=== PATIENT | female | born 1975 | race Caucasian/White ===

== ENCOUNTER → 2018-05-29 | Outpatient (CLI) | payer MEDICARE ==
[~2018-05-29] MED LIST: ABILIFY 5MG PO; BENZ200C25 PO; BSP10T PO; CEPH-507 PO; CHOL10003 PO; CLON1TAB3 PO; CYAN5000 SL; CYCL10TA9; DESI25TA13 PO; DESV100T; DIVA250T2 PO; DULO60CA6; FLUO20CA42 PO; FOLI1TAB7 PO; MIDO10TA4 PO; MULT-856 PO; NAPR-915 PO; NF-ESOM40C PO; OMEP-10; OXYB10TA PO; OXYB15TA PO; OXYB5TAB9 PO; POTA20TA7 PO; QUET300T3 PO; SPIR1TAB; SPIR1TAB3 PO; TOPI100T2 PO; TPR100T; TRAZ150T42 PO; TRIM100T7 PO; TRZ100T PO; ZLP10T; benzotropine; buspar; vit b
--- NOTE | 2018-05-29 14:24 | Diagnostic Imaging Report ---
Indication: Routine screening. Comparison is made with prior mammogram from 05/18/2016 and 03/03/2015. 2-D and 3-D bilateral screening mammography was performed with CAD. Both breasts are heterogeneously dense, limiting the sensitivity of mammography. Postlumpectomy changes in the right breast are noted. There are 2 clusters of calcifications in the outer right breast near the surgical site. Both are superiorly located and slightly laterally located. Magnification views recommended for further evaluation. ML views are also recommended. The left breast is unremarkable. The axilla are unremarkable. IMPRESSION: BI-RADS zero Post surgical changes right breast. There is some new calcifications on the right. Magnification and ML views are recommended for further evaluation. ACR BI-RADS Category 0: Incomplete. (Needs additional imaging evaluation). Result letter will be mailed to the patient. Note: At least 10% of breast cancer is not imaged by mammography. Dictated by: Dictated on workstation # [id number]
== END ==
LOC: RAD 13:02
PROVIDERS: ATTEND Obstetrics & Gynecology
DX: Z12.31 Encounter for screening mammogram for malignant neoplasm of breast (principal); R92.1 Mammographic calcification found on diagnostic imaging of breast; Z98.890 Other specified postprocedural states
CPT/HCPCS: 77067

== ENCOUNTER → 2018-06-20 | Outpatient (CLI) | payer MEDICARE ==
[~2018-06-20] MED LIST changes: +LIDOCAINE 1% INJ 20 ML 20 ML VIAL ONE
--- NOTE | 2018-06-20 17:52 | Diagnostic Imaging Report ---
INDICATION: Right breast calcifications. Patient presents for stereotactic biopsy. Patient presents for biopsy of two separate clusters of calcifications. PROCEDURE: Patient was brought to the stereotactic suite and placed in a sitting upright position. The right breast was positioned in a lateral medial position. The cluster of microcalcifications in the upper and posterior aspect of the right breast were stereotactically targeted. The right breast was then prepped and draped in the usual sterile fashion. Small amount of 1% lidocaine was utilized for superficial and deep anesthesia. 8-gauge needle was advanced into the right breast from a lateral approach and placed per stereotactic coordinates. A total of 4 core biopsies utilizing a vacuum-assisted device was performed. Specimen radiograph demonstrates majority of calcifications located in sample #4. A localizer clip was then deployed. Stereotactic needle was removed and hemostasis was obtained. Patient tolerated the procedure well. Next, patient's right breast was repositioned lateral medially. The second cluster of microcalcifications in the upper right breast more anterior than the first cluster of microcalcifications. The anterior cluster was stereotactically targeted. The right breast was then prepped and draped in usual sterile fashion and a small amount of 1% lidocaine was utilized for local anesthesia. 8 gauge needle was advanced into the right breast from a lateral approach and placed per stereotactic coordinates. A total of 4 core biopsies were obtained with 8 gauge needle and vacuum assisted device. Specimen radiograph demonstrates numerous calcifications present but the majority located within biopsy labeled #8. The marker clip was then deployed. The needle was removed and hemostasis was obtained using manual compression. Patient tolerated the procedure well. Followup mammogram demonstrates postbiopsy changes in the right breast. There is marker clips present in the right breast anteriorly and posteriorly in the upper and outer aspect. Pathology results are pending. IMPRESSION: Successful stereotactic biopsy of two separate clusters of microcalcifications in the right breast, as described. Pathology results are currently pending. Dictated by: Dictated on workstation # [id number]
== END ==
LOC: RAD 10:08
PROVIDERS: ATTEND Obstetrics & Gynecology
DX: N60.91 Unspecified benign mammary dysplasia of right breast (principal); N60.41 Mammary duct ectasia of right breast; R92.0 Mammographic microcalcification found on diagnostic imaging of breast
CPT/HCPCS: 19081; 19082; 88305

== ENCOUNTER 2019-04-20 13:53 | Emergency (ER) | payer MEDICARE ==
[~2019-04-20] VITALS: Ht 154.9 cm; Wt 59.0 kg
[~2019-04-20 13:53] MED LIST changes: -LIDOCAINE 1% INJ 20 ML 20 ML VIAL ONE
--- OUTSIDE RECORDS SUMMARY | 2019-04-20 13:59 | XMS REPORT ---
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 Name Role Phone MILTON ANIRUDH Unavailable PROBLEMS Type Condition ICD9-CM Code QGD25-DM Code Onset Dates Condition Status SNOMED Code Problem Other and unspecified bipolar disorders 296.89 Active 05838577 Problem Nondependent cocaine abuse, unspecified 305.60 Active 138052952 Problem Major depressive disorder, recurrent episode, moderate 296.32 Active 94097652 Problem Unspecified anemia 285.9 Active 064473453 Problem Bipolar disorder, current episode mixed, severe, without psychotic features F31.63 Active 410116798 Problem Long-term use of high-risk medication Z79.899 Active 163217966 Problem LUCY (generalized anxiety disorder) F41.1 Active 10585189 Problem Bipolar affective disorder, currently depressed, mild F31.31 Active 802662422 Problem Bipolar disorder current episode depressed F31.30 Active 033875363 Problem Bipolar disorder, in partial remission, most recent episode hypomanic F31.71 Active 6452066 Problem Moderate mixed bipolar I disorder F31.62 Active 96281798 Problem ADHD (attention deficit hyperactivity disorder), inattentive type F90.0 Active 27372678 Problem Bipolar disorder in partial remission, most recent episode unspecified type F31.70 Active 281550958 Problem Bipolar affective disorder, current episode hypomanic F31.0 Active 05724199 Problem Cocaine use F14.90 Active 756705218 ALLERGIES No Information ENCOUNTERS Encounter Location Date Diagnosis [facility] [address] [facility] [id number] [address] Jul, [facility] [id number] [address] Mar, [facility] [id number] [address] Mar, Bipolar disorder, in partial remission, most recent episode hypomanic F31.71 ; ADHD (attention deficit hyperactivity disorder), inattentive type F90.0 and LUCY (generalized anxiety disorder) F41.1 [facility] [address] [address] Jan, [facility] [address] [address] Jan, Bipolar disorder, in partial remission, most recent episode hypomanic F31.71 ; LUCY (generalized anxiety disorder) F41.1 and ADHD (attention deficit hyperactivity disorder), inattentive type F90.0 [facility] [id number] [place] [address] Jan, Bipolar affective disorder, current episode hypomanic F31.0 [facility] [address] [address] Dec, [facility] [id number] [place] [address] Dec, Bipolar affective disorder, current episode hypomanic F31.0 ; LUCY (generalized anxiety disorder) F41.1 and ADHD (attention deficit hyperactivity disorder), inattentive type F90.0 [facility] [address] [address] Dec, [facility] [address] [address] Nov, Bipolar disorder in partial remission, most recent episode unspecified type F31.70 ; ADHD (attention deficit hyperactivity disorder), inattentive type F90.0 and LUCY (generalized anxiety disorder) F41.1 [facility] [id number] [place] [address] Jul, Bipolar disorder in partial remission, most recent episode unspecified type F31.70 ; LUCY (generalized anxiety disorder) F41.1 ; ADHD (attention deficit hyperactivity disorder), inattentive type F90.0 ; Long-term use of high- risk medication Z79.899 and Cocaine use F14.90 [facility] [address] [address] May, [facility] [id number] [place] [address] May, [facility] [id number] [place] [address] Apr, Bipolar affective disorder, currently depressed, mild F31.31 ; Cocaine use F14.90 ; LUCY (generalized anxiety disorder) F41.1 ; Long-term use of high- risk medication Z79.899 and ADHD (attention deficit hyperactivity disorder), inattentive type F90.0 [facility] [id number] [place] [address] Apr, [facility] [id number] [place] [address] Apr, Bipolar affective disorder, current episode hypomanic F31.0 ; LUCY (generalized anxiety disorder) F41.1 ; ADHD (attention deficit hyperactivity disorder), inattentive type F90.0 and Encounter for drug screening Z02.83 [facility] [id number] [place] [address] Apr, [facility] [address] [address] Jan, [facility] [id number] [place] [address] Dec, [facility] [id number] [place] [address] Dec, Bipolar affective disorder, current episode hypomanic F31.0 ; Long- term use of high-risk medication Z79.899 and LUCY (generalized anxiety disorder) F41.1 [facility] [address] [address] Nov, [facility] [id number] [place] [address] Oct, [address] [address] Sep, Bipolar disorder in partial remission, most recent episode unspecified type F31.70 ; ADHD (attention deficit hyperactivity disorder), inattentive type F90.0 and LUCY (generalized anxiety disorder) F41.1 [address] [place] [address] Sep, [address] [place] [id number] [place] [address] Aug, Bipolar disorder in partial remission, most recent episode unspecified type F31.70 ; Long-term use of high-risk medication Z79.899 ; ADHD (attention deficit hyperactivity disorder), inattentive type F90.0 and LUCY (generalized anxiety disorder) F41.1 [place] [address] [address] Aug, [place] [id number] [place] [address] Jul, [place] [id number] [place] [address] May, Visit for TB skin test Z11.1 [place] [address] [address] May, [place] [id number] [place] [address] Apr, Moderate mixed bipolar I disorder F31.62 and PTSD (post-traumatic stress disorder) F43.10 [place] [address] [address] Mar, [place] [id number] [place] [address] Jan, Moderate mixed bipolar I disorder F31.62 ; PTSD (post-traumatic stress disorder) F43.10 and Long-term use of high-risk medication Z79.899 [place] [address] [address] Oct, Moderate mixed bipolar I disorder F31.62 and PTSD (post-traumatic stress disorder) F43.10 [facility] [address] [address] Sep, PTSD (post-traumatic stress disorder) F43.10 and Moderate mixed bipolar I disorder F31.62 [facility] [id number] [place] [address] Sep, [facility] [id number] [place] [address] Sep, [facility] [id number] [place] [address] Aug, PTSD (post-traumatic stress disorder) F43.10 and Moderate mixed bipolar I disorder F31.62 [facility] [id number] [place] [address] Jul, [facility] [id number] [place] [address] Jul, [facility] [address] [address] Jul, PTSD (post-traumatic stress disorder) F43.10 and Moderate mixed bipolar I disorder F31.62 [facility] [address] [address] May, [facility] [address] [address] May, [facility] [address] [address] Apr, [facility] [id number] [address] Apr, [facility] [address] [address] Apr, PTSD (post-traumatic stress disorder) F43.10 and Moderate mixed bipolar I disorder F31.62 [facility] [address] [address] 27 Mar, 2016 [facility] [id number] [address] 15 Mar, 2016 [facility] [address] [address] Mar, [facility] [address] [address] February, [facility] [address] [address] February, [facility] [address] [address] Jan, Moderate mixed bipolar I disorder F31.62 and PTSD (post-traumatic stress disorder) F43.10 [facility] [address] [address] Jan, [facility] [address] [address] 24 Dec, 2015 Moderate mixed bipolar I disorder F31.62 and PTSD (post-traumatic stress disorder) F43.10 [facility] [address] [address] Dec, PTSD (post-traumatic stress disorder) F43.10 and Bipolar disorder current episode depressed F31.30 [facility] [address] [address] Sep, [facility] [address] [address] Sep, Moderate mixed bipolar I disorder F31.62 and PTSD (post-traumatic stress disorder) F43.10 [facility] [address] [address] Aug, PTSD (post-traumatic stress disorder) F43.10 and Moderate mixed bipolar I disorder F31.62 [facility] [address] [address] Jul, PTSD (post-traumatic stress disorder) F43.10 and Moderate mixed bipolar I disorder F31.62 [facility] [address] [address] May, [facility] [id number] [place] [address] May, Bipolar I disorder, most recent episode (or current) mixed, in partial or unspecified remission 296.65 and PTSD (post-traumatic stress disorder) 309.81 [facility] [id number] [place] [address] Apr, Bipolar I disorder, most recent episode (or current) mixed, moderate 296.62 and Posttraumatic stress disorder 309.81 [facility] [id number] [place] [address] Mar, [facility] [id number] [place] [address] February, [facility] [id number] [place] [address] February, [facility] [address] [address] Jan, [facility] [address] [address] Jan, [facility] [address] [address] Dec, [facility] [id number] [place] [address] Dec, [facility] [address] [address] Dec, [facility] [id number] [place] [address] Dec, [facility] [place] [facility] [address] [id number] [place] [address] Nov, [facility] [place] [facility] [address] [id number] [place] [address] Nov, [facility] [place] [facility] [address] [id number] [place] [address] Nov, [facility] [place] [facility] [address] [id number] [place] [address] Nov, [facility] [place] [facility] [address] [id number] [place] [address] Nov, [facility] [place] [facility] [address] [id number] [place] [address] Oct, [facility] [place] [facility] [address] [id number] [place] [address] Oct, [facility] [place] [facility] [address] [id number] [place] [address] Oct, [facility] [place] [facility] [address] [id number] [place] [address] Oct, [facility] [place] [facility] [address] [facility] [id number] [place] [address] Oct, [facility] [place] [facility] [address] [id number] [place] [address] Oct, [facility] [place] [facility] [address] [id number] [place] [address] Sep, [facility] [place] [facility] [address] [id number] [place] [address] Sep, [facility] [place] [facility] [address] [id number] [place] [address] Sep, [facility] [place] [facility] [address] [id number] [place] [address] Sep, [facility] [place] [facility] [address] [id number] [place] [address] Sep, [facility] [place] [facility] [address] [id number] [place] [address] Sep, [facility] [place] [facility] [address] [id number] [place] [address] Sep, [facility] [place] [facility] [address] [id number] [place] [address] Sep, [facility] [place] [facility] [address] [id number] [place] [address] Sep, [facility] [place] [facility] [address] [id number] [place] [address] Sep, [facility] [place] [facility] [address] [id number] [place] [address] Aug, [facility] [place] [facility] [address] [id number] [place] [address] Aug, [facility] [place] [facility] [address] [id number] [place] [address] Aug, [facility] [place] [facility] [address] [id number] [place] [address] Aug, [facility] [place] [facility] [address] [id number] [place] [address] Aug, [facility] [place] [facility] [address] [id number] [place] [address] Aug, [facility] [place] [facility] [address] [id number] [place] [address] Jul, [facility] [place] [facility] [address] [id number] [place] [address] Jul, [facility] [place] [facility] [address] [id number] [place] [address] Jun, [facility] [place] [facility] [address] [id number] [place] [address] Jun, [facility] [place] [facility] [address] [id number] [place] [address] Jun, [facility] [place] [facility] [address] [id number] [place] [address] Jun, [facility] [place] [facility] [address] [id number] [place] [address] Jun, [facility] [place] [facility] [address] [id number] [place] [address] Jun, [facility] [place] [facility] [address] [id number] [place] [address] May, [facility] [place] [facility] [address] [id number] [place] [address] May, [facility] [place] [facility] [address] [id number] [place] [address] May, [facility] [place] [facility] [address] [id number] [place] [address] May, [facility] [place] [facility] [address] [id number] [place] [address] February, [facility] [place] [facility] [address] [id number] [place] [address] February, [facility] [place] [facility] [address] [id number] [place] [address] Nov, [facility] [place] [facility] [address] [id number] [address] Nov, [facility] [place] [facility] [address] [id number] [place] [address] Jul, [facility] [place] [facility] [address] [id number] [place] [address] Jul, [facility] [place] [facility] [address] [id number] [place] [address] Jul, [facility] [place] [facility] [address] [id number] [place] [address] Jul, [facility] [place] [facility] [address] [id number] [place] [address] May, [facility] [place] [facility] [address] [id number] [place] [address] May, [facility] [place] [facility] [address] [id number] [place] [address] February, [facility] [place] [facility] [address] [id number] [place] [address] Dec, [facility] [place] [facility] [address] [id number] [place] [address] Dec, [facility] [place] [facility] [address] [id number] [place] [address] Dec, [facility] [place] [facility] [address] [id number] [place] [address] Nov, [facility] [place] [facility] [address] [id number] [place] [address] Oct, [facility] [place] [facility] [address] [id number] [place] [address] Sep, [facility] [place] [facility] [address] [id number] [place] [address] Sep, [facility] [place] [facility] [address] [id number] [place] [address] Aug, [facility] [place] [facility] [address] [id number] [place] [address] Aug, [facility] [place] [facility] [address] [id number] [place] [address] Jul, [facility] [place] [facility] [address] [id number] [place] [address] Jul, [facility] [place] [facility] [address] [id number] [place] [address] Jul, [facility] [place] [facility] [address] [id number] [place] [address] Apr, [facility] [place] [facility] [address] [id number] [place] [address] Apr, [facility] [place] [facility] [address] [id number] [place] [address] Mar, [facility] [place] [facility] [address] [id number] [place] [address] February, [facility] [address] [id number] [place] [address] Jan, [facility] [place] [facility] [address] [id number] [place] [address] Jan, [facility] [address] [facility] [id number] [place] [address] Dec, [facility] [address] [id number] [place] [address] Nov, [facility] [place] [facility] [address] [id number] [place] [address] Nov, [facility] [address] [facility] [id number] [place] [address] Sep, [facility] [place] [facility] [address] [id number] [place] [address] Aug, [facility] [place] [facility] [address] [id number] [address] Jul, [facility] [place] [facility] [address] [id number] [place] [address] Sep, [facility] [place] [facility] [address] [id number] [place] [address] Sep, [facility] [place] [facility] [address] [facility] [id number] [address] Aug, [facility] [place] [facility] [address] [id number], [place] [address] Aug, [facility] [address] [facility] [id number] [place] [address] Jul, IMMUNIZATIONS No Known Immunizations SOCIAL HISTORY Never Assessed REASON FOR VISIT PLAN OF CARE VITAL SIGNS MEDICATIONS Unknown Medications RESULTS No Results PROCEDURES No Known procedures INSTRUCTIONS MEDICATIONS ADMINISTERED No Known Medications MEDICAL (GENERAL) HISTORY Type Description Date Medical History Bipolar I disorder, most recent episode (or current) mixed, moderate Medical History PTSD (post-traumatic stress disorder) Surgical History Biopsy on vulva 2014 Surgical History Packing on right breast 2014 Surgical History Right breast mass removed 04/2015 Surgical History Removal of blood clot from rigt breast (hematoma) 2014 Surgical History Right Knee 04/2017 Hospitalization History Surgery
--- OUTSIDE RECORDS SUMMARY | 2019-04-20 13:59 | XMS REPORT ---
Author Author Migration, Doctor Organization [facility] Address Unknown Phone Unavailable Care Team Providers Care Sports Editor Name Role Phone Migration, Doctor Unavailable Unavailable PROBLEMS Type Condition ICD9-CM Code TYL82-AL Code Onset Dates Condition Status SNOMED Code Problem Other and unspecified bipolar disorders 296.89 Active 89631351 Problem Nondependent cocaine abuse, unspecified 305.60 Active 150744670 Problem Major depressive disorder, recurrent episode, moderate 296.32 Active 39718059 Problem Unspecified anemia 285.9 Active 753691750 Problem Bipolar disorder, current episode mixed, severe, without psychotic features F31.63 Active 402173858 Problem Long-term use of high-risk medication Z79.899 Active 773833216 Problem LUCY (generalized anxiety disorder) F41.1 Active 88723260 Problem Bipolar affective disorder, currently depressed, mild F31.31 Active 382148335 Problem Bipolar disorder current episode depressed F31.30 Active 371211911 Problem Bipolar disorder, in partial remission, most recent episode hypomanic F31.71 Active 1587048 Problem Moderate mixed bipolar I disorder F31.62 Active 55821608 Problem ADHD (attention deficit hyperactivity disorder), inattentive type F90.0 Active 19062733 Problem Bipolar disorder in partial remission, most recent episode unspecified type F31.70 Active 534220114 Problem Bipolar affective disorder, current episode hypomanic F31.0 Active 46998868 Problem Cocaine use F14.90 Active 002484718 ALLERGIES Substance Reaction Event Type Date Status Abilify 5 Mg Tablet increased glucose Non Drug Allergy Jan, Active Opioids - Morphine Analogues Unknown Non Drug Allergy Jan, Active ENCOUNTERS Encounter Location Date Diagnosis [facility] [id number] [address] Jul, [facility] [id number] [address] Mar, [facility] [id number] [address] Mar, Bipolar disorder, in partial remission, most recent episode hypomanic F31.71 ; ADHD (attention deficit hyperactivity disorder), inattentive type F90.0 and LUCY (generalized anxiety disorder) F41.1 [facility] [address] [address] Jan, [facility] [id number] [place] [address] Jan, Bipolar disorder, in partial remission, most recent episode hypomanic F31.71 ; LUCY (generalized anxiety disorder) F41.1 and ADHD (attention deficit hyperactivity disorder), inattentive type F90.0 [address] [facility] [id number] [place] [address] Jan, Bipolar affective disorder, current episode hypomanic F31.0 [facility] [address] [address] Dec, [facility] [id number] [place] [address] Dec, Bipolar affective disorder, current episode hypomanic F31.0 ; LUCY (generalized anxiety disorder) F41.1 and ADHD (attention deficit hyperactivity disorder), inattentive type F90.0 [facility] [address] [address] Dec, [facility] [address] [address] Nov, Bipolar disorder in partial remission, most recent episode unspecified type F31.70 ; ADHD (attention deficit hyperactivity disorder), inattentive type F90.0 and LUCY (generalized anxiety disorder) F41.1 [facility] [address] [place] [address] Jul, Bipolar disorder in partial remission, most recent episode unspecified type F31.70 ; LUCY (generalized anxiety disorder) F41.1 ; ADHD (attention deficit hyperactivity disorder), inattentive type F90.0 ; Long-term use of high- risk medication Z79.899 and Cocaine use F14.90 [facility] [address] [address] May, [facility] [address] [address] May, [facility] [address] [place] [address] Apr, Bipolar affective disorder, currently depressed, mild F31.31 ; Cocaine use F14.90 ; LUCY (generalized anxiety disorder) F41.1 ; Long-term use of high- risk medication Z79.899 and ADHD (attention deficit hyperactivity disorder), inattentive type F90.0 [facility] [address] [address] Apr, [facility] [id number] [place] [address] Apr, Bipolar affective disorder, current episode hypomanic F31.0 ; LUCY (generalized anxiety disorder) F41.1 ; ADHD (attention deficit hyperactivity disorder), inattentive type F90.0 and Encounter for drug screening Z02.83 [facility] [id number] [place] [address] Apr, [facility] [address] [address] Jan, [facility] [id number] [place] [address] Dec, [facility] [id number] [place] [address] Dec, Bipolar affective disorder, current episode hypomanic F31.0 ; Long- term use of high-risk medication Z79.899 and LUCY (generalized anxiety disorder) F41.1 [facility] [address] [address] Nov, [facility] [id number] [place] [address] Oct, [facility] [address] [address] Sep, Bipolar disorder in partial remission, most recent episode unspecified type F31.70 ; ADHD (attention deficit hyperactivity disorder), inattentive type F90.0 and LUCY (generalized anxiety disorder) F41.1 [address] [place] [address] Sep, [address] [id number] [place] [address] Aug, Bipolar disorder in partial remission, most recent episode unspecified type F31.70 ; Long-term use of high-risk medication Z79.899 ; ADHD (attention deficit hyperactivity disorder), inattentive type F90.0 and LUCY (generalized anxiety disorder) F41.1 [address] [place] [address] [place] [address] Aug, [place] [id number] [place] [address] Jul, [place] [id number] [place] [address] May, Visit for TB skin test Z11.1 [place] [facility] [id number] [address] May, [place] [facility] [id number] [place] [address] Apr, Moderate mixed bipolar I disorder F31.62 and PTSD (post-traumatic stress disorder) F43.10 [place] [facility] [id number] [place] [address] Mar, [address] [facility] [id number] [place] [address] Jan, Moderate mixed bipolar I disorder F31.62 ; PTSD (post-traumatic stress disorder) F43.10 and Long-term use of high-risk medication Z79.899 [facility] [address] [address] Oct, Moderate mixed bipolar I disorder F31.62 and PTSD (post-traumatic stress disorder) F43.10 [facility] [address] [address] Sep, PTSD (post-traumatic stress disorder) F43.10 and Moderate mixed bipolar I disorder F31.62 [facility] [id number] [place] [address] Sep, [facility] [id number] [place] [address] Sep, [facility] [id number] [place] [address] Aug, PTSD (post-traumatic stress disorder) F43.10 and Moderate mixed bipolar I disorder F31.62 [facility] [address] [place] [address] Jul, [facility] [id number] [place] [address] Jul, [facility] [id number] [place] [address] Jul, PTSD (post-traumatic stress disorder) F43.10 and Moderate mixed bipolar I disorder F31.62 [facility] [address] [address] May, [facility] [id number] [address] May, [facility] [id number] [address] Apr, [facility] [id number] [address] Apr, [facility] [address] [address] Apr, PTSD (post-traumatic stress disorder) F43.10 and Moderate mixed bipolar I disorder F31.62 [facility] [address] [address] 27 Mar, 2016 [facility] [address] [address] Mar, [facility] [address] [address] Mar, [facility] [address] [address] February, [facility] [id number] [place] [address] February, [facility] [address] [address] Jan, Moderate mixed bipolar I disorder F31.62 and PTSD (post-traumatic stress disorder) F43.10 [facility] [address] [address] Jan, [facility] [address] [address] 24 Dec, 2015 Moderate mixed bipolar I disorder F31.62 and PTSD (post-traumatic stress disorder) F43.10 [facility] [address] [address] Dec, PTSD (post-traumatic stress disorder) F43.10 and Bipolar disorder current episode depressed F31.30 [facility] [address] [address] Sep, [facility] [address] [address] Sep, Moderate mixed bipolar I disorder F31.62 and PTSD (post-traumatic stress disorder) F43.10 [facility] [address] [address] Aug, PTSD (post-traumatic stress disorder) F43.10 and Moderate mixed bipolar I disorder F31.62 [facility] [address] [address] Jul, PTSD (post-traumatic stress disorder) F43.10 and Moderate mixed bipolar I disorder F31.62 [facility] [address] [address] May, [facility] [id number] [place] [address] May, Bipolar I disorder, most recent episode (or current) mixed, in partial or unspecified remission 296.65 and PTSD (post-traumatic stress disorder) 309.81 [facility] [id number] [place] [address] Apr, Bipolar I disorder, most recent episode (or current) mixed, moderate 296.62 and Posttraumatic stress disorder 309.81 [facility] [id number] [place] [address] Mar, [facility] [id number] [place] [address] February, [facility] [id number] [place] [address] February, [facility] [address] [address] Jan, [facility] [id number] [place] [address] Jan, [facility] [id number] [address] Dec, [facility] [id number] [place] [address] Dec, [facility] [address] [address] Dec, [facility] [id number] [place] [address] [place] [address] Dec, [facility] [place] [facility] [address] [id number] [place] [address] Nov, [facility] [place] [facility] [address] [id number] [place] [address] Nov, [facility] [place] [facility] [address] [id number] [place] [address] Nov, [facility] [place] [facility] [address] [id number] [place] [address] Nov, [facility] [place] [facility] [address] [id number] [place] [address] Nov, [facility] [place] [facility] [address] [id number] [place] [address] Oct, [facility] [place] [facility] [address] [id number] [place] [address] Oct, [facility] [place] [facility] [address] [id number] [place] [address] Oct, [facility] [place] [facility] [address] [id number] [place] [address] Oct, [facility] [place] [facility] [address] [id number] [place] [address] Oct, [facility] [place] [facility] [address] [id number] [place] [address] Oct, [facility] [place] [facility] [address] [id number] [place] [address] Sep, [facility] [place] [facility] [address] [id number] [place] [address] Sep, [facility] [place] [facility] [address] [id number] [place] [address] Sep, [facility] [place] [facility] [address] [id number] [place] [address] Sep, [facility] [place] [facility] [address] [id number] [place] [address] Sep, [facility] [place] [facility] [address] [id number] [place] [address] Sep, [facility] [place] [facility] [address] [id number] [place] [address] Sep, [facility] [place] [facility] [address] [id number] [place] [address] Sep, [facility] [place] [facility] [address] [id number] [place] [address] Sep, [facility] [place] [facility] [address] [id number] [place] [address] Sep, [facility] [place] [facility] [address] [id number] [place] [address] Aug, [facility] [place] [facility] [address] [id number] [place] [address] Aug, [facility] [place] [facility] [address] [id number] [place] [address] Aug, [facility] [place] [facility] [address] [id number] [place] [address] Aug, [facility] [place] [facility] [address] [id number] [place] [address] Aug, [facility] [place] [facility] [address] [id number] [address] Aug, [facility] [place] [facility] [address] [id number] [place] [address] Jul, [facility] [place] [facility] [address] [id number] [place] [address] Jul, [facility] [place] [facility] [address] [id number] [address] Jun, [facility] [place] [facility] [address] [id number] [address] Jun, [facility] [place] [facility] [address] [id number] [place] [address] Jun, [facility] [place] [facility] [address] [id number] [place] [address] Jun, [facility] [place] [facility] [address] [id number] [place] [address] Jun, [facility] [place] [facility] [address] [id number] [place] [address] Jun, [facility] [place] [facility] [address] [id number] [place] [address] May, [facility] [place] [facility] [address] [id number] [place] [address] May, [facility] [place] [facility] [address] [facility] [id number] [place] [address] May, [facility] [place] [facility] [address] [id number] [place] [address] May, [facility] [place] [facility] [address] [id number] [place] [address] February, [facility] [place] [facility] [address] [facility] [id number] [place] [address] February, [facility] [place] [facility] [address] [id number] [address] Nov, [facility] [place] [facility] [address] [id number] [place] [address] Nov, [facility] [place] [facility] [address] [id number] [address] Jul, [facility] [place] [facility] [address] [id number] [place] [address] Jul, [facility] [place] [facility] [address] [id number] [address] Jul, [facility] [place] [facility] [address] [id number] [place] [address] Jul, [facility] [place] [facility] [address] [id number] [place] [address] May, [facility] [place] [facility] [address] [id number] [place] [address] May, [facility] [place] [facility] [address] [id number] [place] [address] February, [facility] [place] [facility] [address] [id number] [place] [address] Dec, [facility] [place] [facility] [address] [id number] [place] [address] Dec, [facility] [place] [facility] [address] [id number] [place] [address] Dec, [facility] [place] [facility] [address] [id number] [place] [address] Nov, [facility] [place] [facility] [address] [id number] [place] [address] Oct, [facility] [place] [facility] [address] [id number] [place] [address] Sep, [facility] [place] [facility] [address] [id number] [place] [address] Sep, [facility] [place] [facility] [address] [id number] [place] [address] Aug, [facility] [place] [facility] [address] [id number] [place] [address] Aug, [facility] [place] [facility] [address] [id number] [place] [address] Jul, [facility] [place] [facility] [address] [id number] [place] [address] Jul, [facility] [place] [facility] [address] [id number] [place] [address] Jul, [facility] [place] [facility] [address] [id number] [place] [address] Apr, [facility] [place] [facility] [address] [id number] [place] [address] Apr, [facility] [place] [facility] [address] [facility] [id number] [place] [address] Mar, [facility] [place] [facility] [address] [id number] [place] [address] February, [facility] [place] [facility] [address] [id number] [place] [address] Jan, [facility] [place] [facility] [address] [id number] [place] [address] Jan, [facility] [place] [facility] [address] [facility] [id number] [place] [address] Dec, [facility] [place] [facility] [address] [id number] [place] [address] Nov, [facility] [place] [facility] [address] [facility] [id number] [place] [address] Nov, [facility] [place] [facility] [address] [facility] [id number] [place] [address] Sep, [facility] [place] [facility] [address] [facility] [id number] [address] Aug, [facility] [place] [facility] [address] [id number] [address] Jul, [facility] [place] [facility] [address] [id number] [place] [address] Sep, [facility] [place] [facility] [address] [facility] [id number] [place] [address] Sep, [facility] [place] [facility] [address] [facility] [id number] [place] [address] Aug, [facility] [place] [facility] [address] [facility] [id number] [place] [address] Aug, [facility] [address] [facility] [id number] [place] [address] Jul, IMMUNIZATIONS No Known Immunizations SOCIAL HISTORY Never Assessed REASON FOR VISIT [facility] [place] PLAN OF CARE VITAL SIGNS MEDICATIONS Medication Instructions Dosage Frequency Start Date End Date Duration Status Seroquel XR 150 mg 1 tablet by Oral route 1 time per day qHS x 7 days, then 2 tabs po qHS thereafter Dec, Active Natazia 3 mg/2 mg-2 mg/ 2 mg-3 mg/1 mg take 1 tablet by oral route once daily Jul, Active Klonopin 1 mg 1 tablet by Oral route 3 times per day PRN anxiety (to last 30 days) Oct, Active midodrine 10 mg 1 Tablet by Oral route 3 times per day Aug, Active RESULTS No Results PROCEDURES No Known procedures [...] of blood clot from rigt breast (hematoma) 2015 Surgical History Right Knee 04/2017 Hospitalization History Surgery
--- OUTSIDE RECORDS SUMMARY | 2019-04-20 14:00 | XMS REPORT ---
Author Author Migration, Doctor Organization [facility] Address Unknown Phone Unavailable Care Team Providers Care Certified Registered Nurse Practitioner Name Role Phone Migration, Doctor Unavailable Unavailable PROBLEMS Type Condition ICD9-CM Code UUS29-NX Code Onset Dates Condition Status SNOMED Code Problem Other and unspecified bipolar disorders 296.89 Active 24475184 Problem Nondependent cocaine abuse, unspecified 305.60 Active 762976105 Problem Major depressive disorder, recurrent episode, moderate 296.32 Active 38748807 Problem Unspecified anemia 285.9 Active 494737578 Problem Bipolar disorder, current episode mixed, severe, without psychotic features F31.63 Active 062248558 Problem Long-term use of high-risk medication Z79.899 Active 167241323 Problem ADHD (attention deficit hyperactivity disorder), inattentive type F90.0 Active 66785790 Problem Bipolar affective disorder, currently depressed, mild F31.31 Active 178541300 Problem Bipolar disorder current episode depressed F31.30 Active 646463011 Problem Bipolar disorder, in partial remission, most recent episode hypomanic F31.71 Active 7282373 Problem Moderate mixed bipolar I disorder F31.62 Active 20692913 Problem LUCY (generalized anxiety disorder) F41.1 Active 89214037 Problem Bipolar disorder in partial remission, most recent episode unspecified type F31.70 Active 282301351 Problem Bipolar affective disorder, current episode hypomanic F31.0 Active 06356510 Problem Cocaine use F14.90 Active 516846178 ALLERGIES No Information ENCOUNTERS Encounter Location Date Diagnosis [facility] [address] [facility] [id number] [address] Mar, [facility] [id number] [address] Jan, [facility] [address] [facility] [id number] [address] Jan, Bipolar disorder, in partial remission, most recent episode hypomanic F31.71 ; LUCY (generalized anxiety disorder) F41.1 and ADHD (attention deficit hyperactivity disorder), inattentive type F90.0 [facility] [address] [address] Jan, Bipolar affective disorder, current episode hypomanic F31.0 [facility] [address] [address] Dec, [facility] [id number] [place] [address] Dec, Bipolar affective disorder, current episode hypomanic F31.0 ; LUCY (generalized anxiety disorder) F41.1 and ADHD (attention deficit hyperactivity disorder), inattentive type F90.0 [facility] [address] [place] [address] Dec, [facility] [address] [address] Nov, Bipolar disorder in partial remission, most recent episode unspecified type F31.70 ; ADHD (attention deficit hyperactivity disorder), inattentive type F90.0 and LUCY (generalized anxiety disorder) F41.1 [facility] [address] [address] Jul, Bipolar disorder in partial remission, most recent episode unspecified type F31.70 ; LUCY (generalized anxiety disorder) F41.1 ; ADHD (attention deficit hyperactivity disorder), inattentive type F90.0 ; Long-term use of high- risk medication Z79.899 and Cocaine use F14.90 [facility] [address] [address] May, [facility] [address] [address] May, [facility] [address] [address] Apr, Bipolar affective disorder, currently depressed, mild F31.31 ; Cocaine use F14.90 ; LUCY (generalized anxiety disorder) F41.1 ; Long-term use of high- risk medication Z79.899 and ADHD (attention deficit hyperactivity disorder), inattentive type F90.0 [facility] [id number] [address] Apr, [facility] [id number] [address] Apr, Bipolar affective disorder, current episode hypomanic F31.0 ; LUCY (generalized anxiety disorder) F41.1 ; ADHD (attention deficit hyperactivity disorder), inattentive type F90.0 and Encounter for drug screening Z02.83 [facility] [id number] [address] Apr, [place] [id number] [place] [address] Jan, [place] [facility] [id number] [place] [address] Dec, [facility] [id number] [place] [address] Dec, Bipolar affective disorder, current episode hypomanic F31.0 ; Long- term use of high-risk medication Z79.899 and LUCY (generalized anxiety disorder) F41.1 [facility] [address] [address] Nov, [facility] [address] [address] Oct, [facility] [address] [address] Sep, Bipolar disorder in partial remission, most recent episode unspecified type F31.70 ; ADHD (attention deficit hyperactivity disorder), inattentive type F90.0 and LUCY (generalized anxiety disorder) F41.1 [place] [place] [id number] [address] Sep, [facility] [id number] [place] [address] Aug, Bipolar disorder in partial remission, most recent episode unspecified type F31.70 ; Long-term use of high-risk medication Z79.899 ; ADHD (attention deficit hyperactivity disorder), inattentive type F90.0 and LUCY (generalized anxiety disorder) F41.1 [place] [address] [address] Aug, [place] [id number] [place] [address] Jul, [place] [id number] [place] [address] May, Visit for TB skin test Z11.1 [place] [id number] [place] [address] May, [place] [id number] [place] [address] Apr, Moderate mixed bipolar I disorder F31.62 and PTSD (post-traumatic stress disorder) F43.10 [place] [address] [place] [address] Mar, [place] [id number] [place] [address] Jan, Moderate mixed bipolar I disorder F31.62 ; PTSD (post-traumatic stress disorder) F43.10 and Long-term use of high-risk medication Z79.899 [place] [address] [place] [address] Oct, Moderate mixed bipolar I disorder F31.62 and PTSD (post-traumatic stress disorder) F43.10 [place] [id number] [place] [address] Sep, PTSD (post-traumatic stress disorder) F43.10 and Moderate mixed bipolar I disorder F31.62 [place] [address] [place] [address] Sep, [facility] [address] [address] Sep, [facility] [id number] [place] [address] Aug, PTSD (post-traumatic stress disorder) F43.10 and Moderate mixed bipolar I disorder F31.62 [facility] [id number] [place] [address] Jul, [facility] [id number] [place] [address] Jul, [facility] [id number] [place] [address] Jul, PTSD (post-traumatic stress disorder) F43.10 and Moderate mixed bipolar I disorder F31.62 [facility] [id number] [place] [address] May, [facility] [id number] [place] [address] May, [facility] [address] [place] [address] Apr, [facility] [address] [address] Apr, [facility] [address] [address] Apr, PTSD (post-traumatic stress disorder) F43.10 and Moderate mixed bipolar I disorder F31.62 [facility] [address] [address] Mar, [facility] [id number] [place] [address] Mar, [facility] [id number] [address] Mar, [facility] [id number] [place] [address] February, [facility] [address] [address] February, [facility] [address] [address] Jan, Moderate mixed bipolar I disorder F31.62 and PTSD (post-traumatic stress disorder) F43.10 [facility] [address] [place] [address] Jan, [facility] [address] [place] [address] Dec, Moderate mixed bipolar I disorder F31.62 and PTSD (post-traumatic stress disorder) F43.10 [place] [address] [address] Dec, PTSD (post-traumatic stress disorder) F43.10 and Bipolar disorder current episode depressed F31.30 [facility] [address] [address] Sep, [facility] [id number] [place] [address] Sep, Moderate mixed bipolar I disorder F31.62 and PTSD (post-traumatic stress disorder) F43.10 [place] [address] [address] Aug, PTSD (post-traumatic stress disorder) F43.10 and Moderate mixed bipolar I disorder F31.62 [facility] [address] [address] Jul, PTSD (post-traumatic stress disorder) F43.10 and Moderate mixed bipolar I disorder F31.62 [facility] [address] [address] May, [facility] [address] [address] May, Bipolar I disorder, most recent episode (or current) mixed, in partial or unspecified remission 296.65 and PTSD (post-traumatic stress disorder) 309.81 [facility] [id number] [place] [address] Apr, Bipolar I disorder, most recent episode (or current) mixed, moderate 296.62 and Posttraumatic stress disorder 309.81 [facility] [id number] [place] [address] Mar, [facility] [id number] [place] [address] February, [facility] [id number] [place] [address] February, [facility] [id number] [place] [address] Jan, [facility] [id number] [place] [address] Jan, [facility] [address] [address] Dec, [facility] [id number] [address] Dec, [facility] [address] [address] Dec, [facility] [address] [address] Dec, [facility] [address] [address] Nov, [facility] [id number] [address] Nov, [facility] [address] [address] Nov, [facility] [address] [address] Nov, [facility] [place] [facility] [address] [id number] [place] [address] Nov, [facility] [place] [facility] [address] [id number] [place] [address] Oct, [facility] [place] [facility] [address] [id number] [place] [address] Oct, [facility] [place] [facility] [address] [id number] [place] [address] Oct, [facility] [place] [facility] [address] [id number] [place] [address] Oct, [facility] [place] [facility] [address] [id number] [place] [address] Oct, [facility] [place] [facility] [address] [id number] [place] [address] Oct, [facility] [place] [facility] [address] [id number] [place] [address] Sep, [facility] [place] [facility] [address] [id number] [place] [address] Sep, [facility] [place] [facility] [address] [id number] [place] [address] Sep, [facility] [place] [facility] [address] [id number] [place] [address] Sep, [facility] [place] [facility] [address] [id number] [address] Sep, [facility] [place] [facility] [address] [id number] [place] [address] Sep, [facility] [place] [facility] [address] [id number] [place] [address] Sep, [facility] [place] [facility] [address] [id number] [place] [address] Sep, [facility] [place] [facility] [address] [id number] [place] [address] Sep, [facility] [place] [facility] [address] [id number] [place] [address] Sep, [facility] [place] [facility] [address] [id number] [place] [address] Aug, [facility] [place] [facility] [address] [id number] [place] [address] Aug, [facility] [place] [facility] [address] [id number] [place] [address] Aug, [facility] [place] [facility] [address] [id number] [place] [address] Aug, [facility] [place] [facility] [address] [id number] [place] [address] Aug, [facility] [place] [facility] [address] [id number] [place] [address] Aug, [facility] [place] [facility] [address] [id number] [place] [address] Jul, [facility] [place] [facility] [address] [id number] [place] [address] Jul, [facility] [place] [facility] [address] [id number] [place] [address] Jun, [facility] [place] [facility] [address] [id number] [place] [address] Jun, [facility] [place] [facility] [address] [id number] [place] [address] Jun, [facility] [place] [facility] [address] [id number] [place] [address] Jun, [facility] [place] [facility] [address] [id number] [place] [address] Jun, [facility] [place] [facility] [address] [id number] [place] [address] Jun, [facility] [place] [facility] [address] [id number] [place] [address] May, [facility] [place] [facility] [address] [id number] [place] [address] May, [facility] [place] [facility] [address] [id number] [place] [address] May, [facility] [place] [facility] [address] [id number] [place] [address] May, [facility] [place] [facility] [address] [id number] [place] [address] February, [facility] [place] [facility] [address] [id number] [place] [address] February, [facility] [place] [facility] [address] [id number] [place] [address] Nov, [facility] [place] [facility] [address] [id number] [place] [address] Nov, [facility] [place] [facility] [address] [id number] [place] [address] Jul, [facility] [place] [facility] [address] [id number] [place] [address] Jul, [facility] [place] [facility] [address] [id number] [place] [address] Jul, [facility] [place] [facility] [address] [id number] [address] Jul, [facility] [place] [facility] [address] [id number] [place] [address] May, [facility] [place] [facility] [address] [id number] [place] [address] May, [facility] [place] [facility] [address] [id number] [place] [address] February, [facility] [place] [facility] [address] [id number] [address] Dec, [facility] [address] [id number] [place] [address] Dec, [facility] [place] [facility] [address] [id number] [place] [address] Dec, [facility] [place] [facility] [address] [id number] [place] [address] Nov, [facility] [place] [facility] [address] [id number] [place] [address] Oct, [facility] [place] [facility] [address] [id number] [place] [address] Sep, [facility] [place] [facility] [address] [id number] [place] [address] Sep, [facility] [address] [facility] [id number] [place] [address] Aug, [facility] [place] [facility] [address] [facility] [id number] [place] [address] Aug, [facility] [place] [facility] [address] [facility] [id number] [place] [address] Jul, [facility] [place] [facility] [address] [facility] [id number] [place] [address] Jul, [facility] [place] [facility] [address] [facility] [id number] [place] [address] Jul, [facility] [place] [facility] [address] [facility] [id number] [address] Apr, [facility] [place] [facility] [address] [id number] [place] [address] Apr, [facility] [place] [facility] [address] [facility] [id number] [place] [address] Mar, [facility] [place] [facility] [address] [facility] [id number] [place] [address] February, [facility] [place] [facility] [address] [address] Jan, [facility] [address] [address] Jan, [facility] [address] [address] Dec, [facility] [address] [address] Nov, [facility] [address] [address] Nov, [facility] [address] [place] [address] Sep, [facility] [address] [address] Aug, [facility] [address] [address] Jul, [facility] [address] [address] Sep, [facility] [address] [address] Sep, [facility] [address] [address] Aug, [facility] [address] [address] Aug, [facility] [id number] [address] Jul, IMMUNIZATIONS No Known Immunizations SOCIAL HISTORY Never Assessed [place] [place] VITAL SIGNS MEDICATIONS Unknown [...]
--- OUTSIDE RECORDS SUMMARY | 2019-04-20 14:00 | XMS REPORT ---
Author Author Migration, Doctor Organization [facility] Address Unknown Phone Unavailable Care Team Providers Care Research Professor Of Biostatistics Name Role Phone Migration, Doctor Unavailable Unavailable PROBLEMS Type Condition ICD9-CM Code KDS24-LF Code Onset Dates Condition Status SNOMED Code Problem Other and unspecified bipolar disorders 296.89 Active 07912120 Problem Nondependent cocaine abuse, unspecified 305.60 Active 252849650 Problem Major depressive disorder, recurrent episode, moderate 296.32 Active 28622154 Problem Unspecified anemia 285.9 Active 925277501 Problem Bipolar disorder, current episode mixed, severe, without psychotic features F31.63 Active 666221166 Problem Long-term use of high-risk medication Z79.899 Active 613569105 Problem LUCY (generalized anxiety disorder) F41.1 Active 31706531 Problem Bipolar affective disorder, currently depressed, mild F31.31 Active 636595853 Problem Bipolar disorder current episode depressed F31.30 Active 869294949 Problem Bipolar disorder, in partial remission, most recent episode hypomanic F31.71 Active 4452220 Problem Moderate mixed bipolar I disorder F31.62 Active 67304309 Problem ADHD (attention deficit hyperactivity disorder), inattentive type F90.0 Active 43574252 Problem Bipolar disorder in partial remission, most recent episode unspecified type F31.70 Active 777954339 Problem Bipolar affective disorder, current episode hypomanic F31.0 Active 81864558 Problem Cocaine use F14.90 Active 336761305 ALLERGIES No Information ENCOUNTERS Encounter Location Date Diagnosis [facility] [address] [facility] [id number], [place] [address] Mar, [facility] [address], [place] [address] February, [facility] [id number] [address] Jan, [facility] [address] [id number], [place] [address] Jan, Bipolar disorder, in partial remission, most recent episode hypomanic F31.71 ; LUCY (generalized anxiety disorder) F41.1 and ADHD (attention deficit hyperactivity disorder), inattentive type F90.0 [facility] [address], [place] [address] Jan, Bipolar affective disorder, current episode hypomanic F31.0 [facility] [id number] [place] [address] Dec, [facility] [id number] [place] [address] Dec, Bipolar affective disorder, current episode hypomanic F31.0 ; LUCY (generalized anxiety disorder) F41.1 and ADHD (attention deficit hyperactivity disorder), inattentive type F90.0 [facility] [address], [place] [address] Dec, [facility] [id number] [place] [address] Nov, Bipolar disorder in partial remission, most recent episode unspecified type F31.70 ; ADHD (attention deficit hyperactivity disorder), inattentive type F90.0 and LUCY (generalized anxiety disorder) F41.1 [facility] [address], [place] [address] Jul, Bipolar disorder in partial remission, most recent episode unspecified type F31.70 ; LUCY (generalized anxiety disorder) F41.1 ; ADHD (attention deficit hyperactivity disorder), inattentive type F90.0 ; Long-term use of high- risk medication Z79.899 and Cocaine use F14.90 [facility] [address], [place] [address] May, [facility] [address], [place] [address] May, [facility] [address], [place] [address] Apr, Bipolar affective disorder, currently depressed, mild F31.31 ; Cocaine use F14.90 ; LUCY (generalized anxiety disorder) F41.1 ; Long-term use of high- risk medication Z79.899 and ADHD (attention deficit hyperactivity disorder), inattentive type F90.0 [facility] [address], [place] [address] Apr, [facility] [id number] [place] [address] Apr, Bipolar affective disorder, current episode hypomanic F31.0 ; LUCY (generalized anxiety disorder) F41.1 ; ADHD (attention deficit hyperactivity disorder), inattentive type F90.0 and Encounter for drug screening Z02.83 [place] [id number] [place] [address] Apr, [place] [id number] [place] [address] Jan, [facility] [id number] [place] [address] Dec, [place] [id number] [place] [address] Dec, Bipolar affective disorder, current episode hypomanic F31.0 ; Long- term use of high-risk medication Z79.899 and LUCY (generalized anxiety disorder) F41.1 [facility] [id number] [place] [address] Nov, [facility] [id number] [place] [address] Oct, [facility] [id number] [place] [address] Sep, Bipolar disorder in partial remission, most recent episode unspecified type F31.70 ; ADHD (attention deficit hyperactivity disorder), inattentive type F90.0 and LUCY (generalized anxiety disorder) F41.1 [facility] [id number] [place] [address] Sep, [place] [address], [place] [address] Aug, Bipolar disorder in partial remission, most recent episode unspecified type F31.70 ; Long-term use of high-risk medication Z79.899 ; ADHD (attention deficit hyperactivity disorder), inattentive type F90.0 and LUCY (generalized anxiety disorder) F41.1 [place] [id number] [place] [address] Aug, [place] [id number] [place] [address] Jul, [place] [id number] [place] [address] May, Visit for TB skin test Z11.1 [place] [id number] [place] [address] May, [place] [id number] [place] [address] Apr, Moderate mixed bipolar I disorder F31.62 and PTSD (post-traumatic stress disorder) F43.10 [place] [address], [place] [address] Mar, [place] [address], [place] [address] Jan, Moderate mixed bipolar I disorder F31.62 ; PTSD (post-traumatic stress disorder) F43.10 and Long-term use of high-risk medication Z79.899 [place] [address], [place] [address] Oct, Moderate mixed bipolar I disorder F31.62 and PTSD (post-traumatic stress disorder) F43.10 [place] [address], [place] [address] Sep, PTSD (post-traumatic stress disorder) F43.10 and Moderate mixed bipolar I disorder F31.62 [facility] [address] [facility] [id number], [place] [address] Sep, [facility] [id number] [place] [address] Sep, [facility] [id number], [place] [address] Aug, PTSD (post-traumatic stress disorder) F43.10 and Moderate mixed bipolar I disorder F31.62 [facility] [id number] [place] [address] Jul, [facility] [id number] [place] [address], [place] [address] Jul, [facility] [id number], [place] [address] Jul, PTSD (post-traumatic stress disorder) F43.10 and Moderate mixed bipolar I disorder F31.62 [facility] [id number], [place] [address] May, [facility] [id number], [place] [address] May, [facility] [id number], [place] [address] Apr, [facility] [address], [place] [address] Apr, [facility] [id number], [place] [address] Apr, PTSD (post-traumatic stress disorder) F43.10 and Moderate mixed bipolar I disorder F31.62 [facility] [address] [facility] [id number], [place] [address] Mar, [facility] [id number], [place] [address] Mar, [facility] [id number], [place] [address] Mar, [facility] [address], [place] [address] February, [facility] [id number] [place] [address] February, [facility] [id number], [place] [address] Jan, Moderate mixed bipolar I disorder F31.62 and PTSD (post-traumatic stress disorder) F43.10 [facility] [address], [place] [address] Jan, [facility] [id number] [place] [address] Dec, Moderate mixed bipolar I disorder F31.62 and PTSD (post-traumatic stress disorder) F43.10 [place] [address] [place] [address] Dec, PTSD (post-traumatic stress disorder) F43.10 and Bipolar disorder current episode depressed F31.30 [place] [address], [place] [address] Sep, [place] [address], [place] [address] Sep, Moderate mixed bipolar I disorder F31.62 and PTSD (post-traumatic stress disorder) F43.10 [facility] [address], [place] [address] Aug, PTSD (post-traumatic stress disorder) F43.10 and Moderate mixed bipolar I disorder F31.62 [facility] [id number] [place] [address] 08 Jul, 2015 PTSD (post-traumatic stress disorder) F43.10 and Moderate mixed bipolar I disorder F31.62 [place] [address], [place] [address] May, [place] [address], [place] [address] May, Bipolar I disorder, most recent episode (or current) mixed, in partial or unspecified remission 296.65 and PTSD (post-traumatic stress disorder) 309.81 [facility] [address], [place] [address] Apr, Bipolar I disorder, most recent episode (or current) mixed, moderate 296.62 and Posttraumatic stress disorder 309.81 [facility] [id number] [place] [address] Mar, [facility] [id number] [place] [address] February, [facility] [id number] [address] February, [facility] [id number] [address] Jan, [facility] [address], [place] [address] Jan, [facility] [id number] [place] [address] Dec, [facility] [address], [place] [address] Dec, [facility] [address], [place] [address] Dec, [facility] [address], [place] [address] Dec, [facility] [id number], [place] [address] Nov, [facility] [address], [place] [address] Nov, [facility] [id number], [place] [address] Nov, [facility] [place] [facility] [address] [id number] [place] [address] Nov, [facility] [place] [facility] [address] [id number] [place] [address] Nov, [facility] [place] [facility] [address] [id number] [place] [address] Oct, [facility] [place] [facility] [address] [id number] [place] [address] Oct, [facility] [place] [facility] [address] [id number] [place] [address] Oct, [facility] [place] [facility] [address] [id number] [place] [address] Oct, [facility] [place] [facility] [address] [id number] [place] [address] Oct, [facility] [place] [facility] [address] [id number] [place] [address] Oct, [facility] [place] [facility] [address] [id number] [place] [address] Sep, [facility] [place] [facility] [address] [id number] [place] [address] Sep, [facility] [place] [facility] [address] [id number] [place] [address] Sep, [facility] [place] [facility] [address] [id number], [place] [address] Sep, [facility] [place] [facility] [address] [id number] [place] [address] Sep, [facility] [place] [facility] [address] [id number] [place] [address] Sep, [facility] [place] [facility] [address] [id number] [place] [address] Sep, [facility] [place] [facility] [address] [id number] [place] [address] Sep, [facility] [place] [facility] [address] [id number] [place] [address] Sep, [facility] [place] [facility] [address] [id number] [place] [address] Sep, [facility] [place] [facility] [address] [id number] [place] [address] Aug, [facility] [place] [facility] [address] [id number] [place] [address] Aug, [facility] [place] [facility] [address] [id number] [place] [address] Aug, [facility] [place] [facility] [address] [id number] [place] [address] Aug, [facility] [place] [facility] [address] [id number] [place] [address] Aug, [facility] [place] [facility] [address] [id number] [place] [address] Aug, [facility] [place] [facility] [address] [id number] [place] [address] Jul, [facility] [place] [facility] [address] [facility] [id number] [place] [address] Jul, [facility] [place] [facility] [address] [id number] [place] [address] Jun, [facility] [place] [facility] [address] [id number] [place] [address] Jun, [facility] [place] [facility] [address] [id number] [place] [address] Jun, [facility] [place] [facility] [address] [id number] [place] [address] Jun, [facility] [place] [facility] [address] [id number] [place] [address] Jun, [facility] [place] [facility] [address] [id number] [place] [address] Jun, [facility] [place] [facility] [address] [id number] [place] [address] May, [facility] [place] [facility] [address] [id number] [place] [address] May, [facility] [place] [facility] [address] [id number] [place] [address] May, [facility] [place] [facility] [address] [id number] [place] [address] May, [facility] [place] [facility] [address] [id number] [place] [address] February, [facility] [place] [facility] [address] [id number] [place] [address] February, [facility] [place] [facility] [address] [id number] [place] [address] Nov, [facility] [place] [facility] [address] [id number] [place] [address] Nov, [facility] [place] [facility] [address] [id number] [place] [address] Jul, [facility] [place] [facility] [address] [id number] [place] [address] Jul, [facility] [place] [facility] [address] [id number], [place] [address] Jul, [facility] [place] [facility] [address] [id number] [place] [address] Jul, [facility] [place] [facility] [address] [id number] [place] [address] May, [facility] [place] [facility] [address] [id number] [place] [address] May, [facility] [place] [facility] [address] [id number], [place] [address] February, [facility] [address] [id number] [place] [address] Dec, [facility] [place] [facility] [address] [id number] [place] [address] Dec, [facility] [place] [facility] [address] [facility] [id number] [place] [address] Dec, [facility] [place] [facility] [address] [id number] [place] [address] Nov, [facility] [place] [facility] [address] [id number] [place] [address] Oct, [facility] [place] [facility] [address] [facility] [id number] [place] [address] Sep, [facility] [address] [facility] [id number] [place] [address] Sep, [facility] [place] [facility] [address] [facility] [id number] [place] [address] Aug, [facility] [place] [facility] [address] [facility] [id number] [place] [address] Aug, [facility] [place] [facility] [address] [facility] [id number] [place] [address] Jul, [facility] [place] [facility] [address] [facility] [id number] [place] [address] Jul, [facility] [place] [facility] [address] [facility] [id number], [place] [address] Jul, [facility] [place] [facility] [address] [facility] [id number] [place] [address] Apr, [facility] [place] [facility] [address] [facility] [id number] [place] [address] Apr, [facility] [place] [facility] [address] [facility] [id number] [place] [address] Mar, [facility] [place] [facility] [address], [place] [address] February, [facility] [address], [place] [address] Jan, [facility] [address], [place] [address] Jan, [facility] [id number], [place] [address] Dec, [facility] [id number], [place] [address] Nov, [facility] [id number] [place] [address] Nov, [facility] [address], [place] [address] Sep, [facility] [address], [place] [address] Aug, [facility] [address], [place] [address] Jul, [facility] [address], [place] [address] Sep, [facility] [address], [place] [address] Sep, [facility] [address], [place] [address] Aug, [facility] [id number], [place] [address] Aug, [facility] [address], [place] [address] Jul, IMMUNIZATIONS No Known Immunizations SOCIAL HISTORY Never Assessed REASON FOR VISIT EMR-[facility] PLAN OF CARE VITAL SIGNS MEDICATIONS Unknown [...]
--- OUTSIDE RECORDS SUMMARY | 2019-04-20 14:00 | XMS REPORT ---
Author Author Migration, Doctor Organization [facility] Address Unknown Phone Unavailable Care Team Providers Care Plate Corrector Name Role Phone Migration, Doctor Unavailable Unavailable PROBLEMS Type Condition ICD9-CM Code GVU66-DU Code Onset Dates Condition Status SNOMED Code Problem Other and unspecified bipolar disorders 296.89 Active 88175579 Problem Nondependent cocaine abuse, unspecified 305.60 Active 305891514 Problem Major depressive disorder, recurrent episode, moderate 296.32 Active 25581597 Problem Unspecified anemia 285.9 Active 663805510 Problem Bipolar disorder, current episode mixed, severe, without psychotic features F31.63 Active 102933453 Problem Long-term use of high-risk medication Z79.899 Active 655334566 Problem LUCY (generalized anxiety disorder) F41.1 Active 51558157 Problem Bipolar affective disorder, currently depressed, mild F31.31 Active 288038277 Problem Bipolar disorder current episode depressed F31.30 Active 603478410 Problem Bipolar disorder, in partial remission, most recent episode hypomanic F31.71 Active 0315376 Problem Moderate mixed bipolar I disorder F31.62 Active 48481201 Problem ADHD (attention deficit hyperactivity disorder), inattentive type F90.0 Active 17240947 Problem Bipolar disorder in partial remission, most recent episode unspecified type F31.70 Active 779180392 Problem Bipolar affective disorder, current episode hypomanic F31.0 Active 73796800 Problem Cocaine use F14.90 Active 602431138 ALLERGIES No Information ENCOUNTERS Encounter Location Date Diagnosis [facility] [address] [facility] [id number] [address] Mar, [facility] [address], [place] [address] February, [facility] [id number] [address] Jan, [facility] [id number] [address] Jan, Bipolar disorder, in partial remission, most recent episode hypomanic F31.71 ; LUCY (generalized anxiety disorder) F41.1 and ADHD (attention deficit hyperactivity disorder), inattentive type F90.0 [facility] [address], [place] [address] Jan, Bipolar affective disorder, current episode hypomanic F31.0 [facility] [id number] [place] [address] Dec, [facility] [id number] [place] [address] Dec, Bipolar affective disorder, current episode hypomanic F31.0 ; LUCY (generalized anxiety disorder) F41.1 and ADHD (attention deficit hyperactivity disorder), inattentive type F90.0 [facility] [address], [place] [address] Dec, [facility] [id number] [place] [address] Nov, Bipolar disorder in partial remission, most recent episode unspecified type F31.70 ; ADHD (attention deficit hyperactivity disorder), inattentive type F90.0 and LUCY (generalized anxiety disorder) F41.1 [facility] [address], [place] [address] Jul, Bipolar disorder in partial remission, most recent episode unspecified type F31.70 ; LUCY (generalized anxiety disorder) F41.1 ; ADHD (attention deficit hyperactivity disorder), inattentive type F90.0 ; Long-term use of high- risk medication Z79.899 and Cocaine use F14.90 [facility] [address], [place] [address] May, [facility] [address], [place] [address] May, [facility] [address], [place] [address] Apr, Bipolar affective disorder, currently depressed, mild F31.31 ; Cocaine use F14.90 ; LUCY (generalized anxiety disorder) F41.1 ; Long-term use of high- risk medication Z79.899 and ADHD (attention deficit hyperactivity disorder), inattentive type F90.0 [facility] [address], [place] [address] Apr, [facility] [id number] [place] [address] Apr, Bipolar affective disorder, current episode hypomanic F31.0 ; LUCY (generalized anxiety disorder) F41.1 ; ADHD (attention deficit hyperactivity disorder), inattentive type F90.0 and Encounter for drug screening Z02.83 [facility] [facility] [id number] [place] [address] Apr, [place] [id number] [place] [address] Jan, [facility] [id number] [place] [address] Dec, [facility] [id number] [place] [address] Dec, Bipolar affective disorder, current episode hypomanic F31.0 ; Long- term use of high-risk medication Z79.899 and LUCY (generalized anxiety disorder) F41.1 [facility] [id number] [place] [address] Nov, [facility] [id number] [place] [address] Oct, [facility] [id number] [place] [address] Sep, Bipolar disorder in partial remission, most recent episode unspecified type F31.70 ; ADHD (attention deficit hyperactivity disorder), inattentive type F90.0 and LUCY (generalized anxiety disorder) F41.1 [facility] [id number] [place] [address] Sep, [place] [address], [place] [address] Aug, Bipolar disorder in partial remission, most recent episode unspecified type F31.70 ; Long-term use of high-risk medication Z79.899 ; ADHD (attention deficit hyperactivity disorder), inattentive type F90.0 and LUCY (generalized anxiety disorder) F41.1 [facility] [facility] [id number] [place] [address] Aug, [place] [id number] [place] [address] Jul, [facility] [facility] [id number] [place] [address] May, Visit for TB skin test Z11.1 [facility] [facility] [id number] [place] [address] May, [facility] [facility] [id number] [place] [address] Apr, Moderate mixed bipolar I disorder F31.62 and PTSD (post-traumatic stress disorder) F43.10 [place] [address], [place] [address] Mar, [place] [address], [place] [address] Jan, Moderate mixed bipolar I disorder F31.62 ; PTSD (post-traumatic stress disorder) F43.10 and Long-term use of high-risk medication Z79.899 [place] [address], [place] [address] Oct, Moderate mixed bipolar I disorder F31.62 and PTSD (post-traumatic stress disorder) F43.10 [place] [address], [place] [address] Sep, PTSD (post-traumatic stress disorder) F43.10 and Moderate mixed bipolar I disorder F31.62 [facility] [address] [facility] [id number], [place] [address] Sep, [facility] [id number] [place] [address] Sep, [facility] [id number], [place] [address] Aug, PTSD (post-traumatic stress disorder) F43.10 and Moderate mixed bipolar I disorder F31.62 [facility] [id number] [place] [address] Jul, [facility] [id number] [place] [address], [place] [address] Jul, [facility] [id number] [address] Jul, PTSD (post-traumatic stress disorder) F43.10 and Moderate mixed bipolar I disorder F31.62 [facility] [id number] [address] May, [facility] [id number], [place] [address] May, [facility] [id number], [place] [address] Apr, [facility] [address], [place] [address] Apr, [facility] [id number], [place] [address] Apr, PTSD (post-traumatic stress disorder) F43.10 and Moderate mixed bipolar I disorder F31.62 [facility] [address] [facility] [id number], [place] [address] Mar, [facility] [id number], [place] [address] Mar, [facility] [id number], [place] [address] Mar, [facility] [address], [place] [address] February, [facility] [id number] [place] [address] February, [facility] [address], [place] [address] Jan, Moderate mixed bipolar I disorder F31.62 and PTSD (post-traumatic stress disorder) F43.10 [facility] [address], [place] [address] Jan, [facility] [id number] [place] [address] Dec, Moderate mixed bipolar I disorder F31.62 and PTSD (post-traumatic stress disorder) F43.10 [place] [address] [place] [address] Dec, PTSD (post-traumatic stress disorder) F43.10 and Bipolar disorder current episode depressed F31.30 [place] [address], [place] [address] Sep, [place] [address], [place] [address] Sep, Moderate mixed bipolar I disorder F31.62 and PTSD (post-traumatic stress disorder) F43.10 [facility] [address], [place] [address] Aug, PTSD (post-traumatic stress disorder) F43.10 and Moderate mixed bipolar I disorder F31.62 [facility] [address] [place] [address] 08 Jul, 2015 PTSD (post-traumatic stress disorder) F43.10 and Moderate mixed bipolar I disorder F31.62 [place] [address], [place] [address] May, [place] [address], [place] [address] May, Bipolar I disorder, most recent episode (or current) mixed, in partial or unspecified remission 296.65 and PTSD (post-traumatic stress disorder) 309.81 [facility] [address], [place] [address] Apr, Bipolar I disorder, most recent episode (or current) mixed, moderate 296.62 and Posttraumatic stress disorder 309.81 [facility] [id number] [place] [address] Mar, [facility] [id number] [place] [address] February, [facility] [id number] [address] February, [facility] [address] [id number] [address] Jan, [facility] [address], [place] [address] Jan, [facility] [address] [place] [address] Dec, [facility] [address], [place] [address] Dec, [facility] [address], [place] [address] Dec, [facility] [address], [place] [address] Dec, [facility] [id number], [place] [address] Nov, [facility] [address], [place] [address] Nov, [facility] [address], [place] [address] Nov, [facility] [place] [facility] [address] [id number] [place] [address] Nov, [facility] [place] [facility] [address] [id number] [place] [address] Nov, [facility] [place] [facility] [address] [id number] [place] [address] Oct, [facility] [place] [facility] [address] [id number] [place] [address] Oct, [facility] [place] [facility] [address] [id number] [place] [address] Oct, [facility] [place] [facility] [address] [id number] [place] [address] Oct, [facility] [place] [facility] [address] [id number] [place] [address] Oct, [facility] [place] [facility] [address] [id number] [place] [address] Oct, [facility] [place] [facility] [address] [id number] [place] [address] Sep, [facility] [place] [facility] [address] [id number] [place] [address] Sep, [facility] [place] [facility] [address] [id number] [place] [address] Sep, [facility] [place] [facility] [address] [id number] [address] Sep, [facility] [place] [facility] [address] [id number] [place] [address] Sep, [facility] [place] [facility] [address] [id number] [place] [address] Sep, [facility] [place] [facility] [address] [id number] [place] [address] Sep, [facility] [place] [facility] [address] [id number] [place] [address] Sep, [facility] [place] [facility] [address] [id number] [place] [address] Sep, [facility] [place] [facility] [address] [id number] [place] [address] Sep, [facility] [place] [facility] [address] [id number] [place] [address] Aug, [facility] [place] [facility] [address] [id number] [place] [address] Aug, [facility] [place] [facility] [address] [id number] [place] [address] Aug, [facility] [place] [facility] [address] [id number] [place] [address] Aug, [facility] [place] [facility] [address] [id number] [place] [address] Aug, [facility] [place] [facility] [address] [id number] [place] [address] Aug, [facility] [place] [facility] [address] [id number] [place] [address] Jul, [facility] [place] [facility] [address] [facility] [id number] [place] [address] Jul, [facility] [place] [facility] [address] [id number] [place] [address] Jun, [facility] [place] [facility] [address] [id number] [place] [address] Jun, [facility] [place] [facility] [address] [id number] [place] [address] Jun, [facility] [place] [facility] [address] [id number] [place] [address] Jun, [facility] [place] [facility] [address] [id number] [place] [address] Jun, [facility] [place] [facility] [address] [id number] [place] [address] Jun, [facility] [place] [facility] [address] [id number] [place] [address] May, [facility] [place] [facility] [address] [id number] [place] [address] May, [facility] [place] [facility] [address] [id number] [place] [address] May, [facility] [place] [facility] [address] [id number] [place] [address] May, [facility] [place] [facility] [address] [id number] [place] [address] February, [facility] [place] [facility] [address] [id number] [place] [address] February, [facility] [place] [facility] [address] [id number] [place] [address] Nov, [facility] [place] [facility] [address] [id number] [place] [address] Nov, [facility] [place] [facility] [address] [id number] [place] [address] Jul, [facility] [place] [facility] [address] [id number] [place] [address] Jul, [facility] [place] [facility] [address] [id number], [place] [address] Jul, [facility] [place] [facility] [address] [id number] [place] [address] Jul, [facility] [place] [facility] [address] [id number] [place] [address] May, [facility] [place] [facility] [address] [id number] [place] [address] May, [facility] [place] [facility] [address] [id number], [place] [address] February, [facility] [address] [id number] [place] [address] Dec, [facility] [place] [facility] [address] [id number] [place] [address] Dec, [facility] [place] [facility] [address] [facility] [id number] [place] [address] Dec, [facility] [place] [facility] [address] [id number] [place] [address] Nov, [facility] [place] [facility] [address] [id number] [place] [address] Oct, [facility] [place] [facility] [address] [facility] [id number] [place] [address] Sep, [facility] [address] [facility] [id number] [place] [address] Sep, [facility] [place] [facility] [address] [facility] [id number] [place] [address] Aug, [facility] [place] [facility] [address] [facility] [id number] [place] [address] Aug, [facility] [place] [facility] [address] [facility] [id number] [place] [address] Jul, [facility] [place] [facility] [address] [facility] [id number] [place] [address] Jul, [facility] [place] [facility] [address] [facility] [id number], [place] [address] Jul, [facility] [place] [facility] [address] [facility] [id number] [place] [address] Apr, [facility] [place] [facility] [address] [facility] [id number] [place] [address] Apr, [facility] [place] [facility] [address] [facility] [id number] [place] [address] Mar, [facility] [place] [facility] [address], [place] [address] February, [facility] [address], [place] [address] Jan, [facility] [address], [place] [address] Jan, [facility] [address], [place] [address] Dec, [facility] [address], [place] [address] Nov, [facility] [id number] [place] [address] Nov, [facility] [address], [place] [address] Sep, [facility] [address], [place] [address] Aug, [facility] [address], [place] [address] Jul, [facility] [address], [place] [address] Sep, [facility] [address], [place] [address] Sep, [facility] [address], [place] [address] Aug, [facility] [id number], [place] [address] Aug, [facility] [address], [place] [address] Jul, IMMUNIZATIONS No Known Immunizations SOCIAL HISTORY Never Assessed REASON FOR VISIT EMR-[facility] [place]AN OF CARE VITAL SIGNS MEDICATIONS Unknown [...]
--- OUTSIDE RECORDS SUMMARY | 2019-04-20 14:01 | XMS REPORT ---
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 Name Role Phone MILTON ANIRUDH Unavailable PROBLEMS Type Condition ICD9-CM Code ZLB22-UG Code Onset Dates Condition Status SNOMED Code Problem Bipolar disorder current episode depressed F31.30 Active 565726851 Problem Long-term use of high-risk medication Z79.899 Active 132766438 Problem Bipolar disorder, current episode mixed, severe, without psychotic features F31.63 Active 137785689 Problem Bipolar affective disorder, currently depressed, mild F31.31 Active 857947607 Problem Cocaine use F14.90 Active 758183198 Problem ADHD (attention deficit hyperactivity disorder), inattentive 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62 Active 38114434 ALLERGIES Substance Reaction Event Type Date Status Macrodantin hives Drug Allergy Jul, Active Makena Carbonate itching Drug Allergy Jul, Active Fentanyl blister Drug Allergy Jul, Active Abilify 5 Mg Tablet increased glucose Non Drug Allergy Jul, Active Opioids - Morphine Analogues Unknown Non Drug Allergy Jul, Active ENCOUNTERS Encounter Location Date Diagnosis [facility] [address] [facility] [id number], [place] [address] Oct, [facility] [address] [facility] [id number] [place] [address] Jul, Bipolar disorder in partial remission, most recent episode unspecified type F31.70 ; LUCY (generalized anxiety disorder) F41.1 ; ADHD (attention deficit hyperactivity disorder), inattentive type F90.0 ; Long-term use of high- risk medication Z79.899 and Cocaine use F14.90 [facility] [id number] [place] [address] May, [facility] [address] [id number] [place] [address] May, [facility] [place] [id number] [place] [address] Apr, Bipolar affective disorder, currently depressed, mild F31.31 ; Cocaine use F14.90 ; LUCY (generalized anxiety disorder) F41.1 ; Long-term use of high- risk medication Z79.899 and ADHD (attention deficit hyperactivity disorder), inattentive type F90.0 [place] [id number] [place] [address] Apr, [facility] [place] [id number] [place] [address] Apr, Bipolar affective disorder, current episode hypomanic F31.0 ; LUCY (generalized anxiety disorder) F41.1 ; ADHD (attention deficit hyperactivity disorder), inattentive type F90.0 and Encounter for drug screening Z02.83 [facility] [place] [id number] [place] [address] Apr, [place] [place] [id number] [place] [address] Jan, [facility] [id number] [place] [address] Dec, [facility] [id number] [place] [address] Dec, Bipolar affective disorder, current episode hypomanic F31.0 ; Long- term use of high-risk medication Z79.899 and LUCY (generalized anxiety disorder) F41.1 [facility] [id number] [place] [address] Nov, [facility] [id number] [place] [address] Oct, [facility] [id number] [place] [address] Sep, Bipolar disorder in partial remission, most recent episode unspecified type F31.70 ; ADHD (attention deficit hyperactivity disorder), inattentive type F90.0 and LUCY (generalized anxiety disorder) F41.1 [place] [id number] [place] [address] Sep, [facility] [id number] [place] [address] Aug, Bipolar disorder in partial remission, most recent episode unspecified type F31.70 ; Long-term use of high-risk medication Z79.899 ; ADHD (attention deficit hyperactivity disorder), inattentive type F90.0 and LUCY (generalized anxiety disorder) F41.1 [place] [id number] [place] [address] Aug, [place] [id number] [place] [address] Jul, [place] [id number] [place] [address] May, Visit for TB skin test Z11.1 [place] [id number] [place] [address] May, [place] [id number] [place] [address] Apr, Moderate mixed bipolar I disorder F31.62 and PTSD (post-traumatic stress disorder) F43.10 [place] [id number] [place] [address] Mar, [facility] [address], [place] [address] Jan, Moderate mixed bipolar I disorder F31.62 ; PTSD (post-traumatic stress disorder) F43.10 and Long-term use of high-risk medication Z79.899 [facility] [address], [place] [address] Oct, Moderate mixed bipolar I disorder F31.62 and PTSD (post-traumatic stress disorder) F43.10 [facility] [id number] [place] [address] Sep, PTSD (post-traumatic stress disorder) F43.10 and Moderate mixed bipolar I disorder F31.62 [facility] [id number] [place] [address] Sep, [facility] [id number] [place] [address] Sep, [facility] [id number] [place] [address] Aug, PTSD (post-traumatic stress disorder) F43.10 and Moderate mixed bipolar I disorder F31.62 [facility] [address], [place] [address] Jul, [facility] [id number] [place] [address] Jul, [facility] [id number] [place] [address] Jul, PTSD (post-traumatic stress disorder) F43.10 and Moderate mixed bipolar I disorder F31.62 [facility] [id number] [place] [address] May, [facility] [address] [id number], [place] [address] May, [facility] [id number] [place] [address] Apr, [facility] [address], [place] [address] Apr, [facility] [id number] [place] [address] Apr, PTSD (post-traumatic stress disorder) F43.10 and Moderate mixed bipolar I disorder F31.62 [facility] [id number] [place] [address] Mar, [facility] [id number] [place] [address] Mar, [facility] [id number] [place] [address] Mar, [facility] [id number] [place] [address] February, [facility] [id number] [place] [address] February, [facility] [id number] [place] [address] Jan, Moderate mixed bipolar I disorder F31.62 and PTSD (post-traumatic stress disorder) F43.10 [facility] [address], [place] [address] Jan, [facility] [id number] [place] [address] 24 Dec, 2015 Moderate mixed bipolar I disorder F31.62 and PTSD (post-traumatic stress disorder) F43.10 [facility] [id number] [place] [address] Dec, PTSD (post-traumatic stress disorder) F43.10 and Bipolar disorder current episode depressed F31.30 [facility] [address], [place] [address] Sep, [facility] [id number] [place] [address] Sep, Moderate mixed bipolar I disorder F31.62 and PTSD (post-traumatic stress disorder) F43.10 [facility] [address], [place] [address] Aug, PTSD (post-traumatic stress disorder) F43.10 and Moderate mixed bipolar I disorder F31.62 [facility] [address] [place] [address] Jul, PTSD (post-traumatic stress disorder) F43.10 and Moderate mixed bipolar I disorder F31.62 [facility] [id number] [place] [address] May, [facility] [id number] [place] [address] May, Bipolar I disorder, most recent episode (or current) mixed, in partial or unspecified remission 296.65 and PTSD (post-traumatic stress disorder) 309.81 [facility] [address], [place] [address] Apr, Bipolar I disorder, most recent episode (or current) mixed, moderate 296.62 and Posttraumatic stress disorder 309.81 [facility] [address], [place] [address] Mar, [facility] [address], [place] [address] February, [facility] [id number] [place] [address] February, [facility] [address], [place] [address] Jan, [facility] [id number] [place] [address] Jan, [facility] [address], [place] [address] Dec, [facility] [id number] [place] [address] Dec, [facility] [place] [facility] [address] [id number] [place] [address] Dec, [facility] [place] [facility] [address] [id number] [place] [address] Dec, [facility] [place] [facility] [address] [id number] [place] [address] Nov, [facility] [place] [facility] [address] [id number] [place] [address] Nov, [facility] [place] [facility] [address] [id number] [place] [address] Nov, [facility] [place] [facility] [address] [id number] [place] [address] Nov, [facility] [place] [facility] [address] [id number] [place] [address] Nov, [facility] [place] [facility] [address] [id number] [place] [address] Oct, [facility] [place] [facility] [address] [id number] [place] [address] Oct, [facility] [place] [facility] [address] [facility] [id number] [place] [address] Oct, [facility] [place] [facility] [address] [id number] [place] [address] Oct, [facility] [place] [facility] [address] [id number] [place] [address] Oct, [facility] [place] [facility] [address] [id number] [place] [address] Oct, [facility] [place] [facility] [address] [id number] [place] [address] Sep, [facility] [place] [facility] [address] [id number] [place] [address] Sep, [facility] [place] [facility] [address] [id number] [place] [address] Sep, [facility] [place] [facility] [address] [id number] [place] [address] Sep, [facility] [place] [facility] [address] [id number] [place] [address] Sep, [facility] [place] [facility] [address] [id number] [place] [address] Sep, [facility] [place] [facility] [address] [id number] [place] [address] Sep, [facility] [place] [facility] [address] [id number] [place] [address] Sep, [facility] [place] [facility] [address] [id number] [place] [address] Sep, [facility] [place] [facility] [address] [id number] [place] [address] Sep, [facility] [place] [facility] [address] [id number] [place] [address] Aug, [facility] [place] [facility] [address] [id number] [place] [address] Aug, [facility] [place] [facility] [address] [id number], [place] [address] Aug, [facility] [place] [facility] [address] [id number], [place] [address] Aug, [facility] [place] [facility] [address] [id number] [place] [address] Aug, [facility] [place] [facility] [address] [id number] [place] [address] Aug, [facility] [place] [facility] [address] [id number] [place] [address] Jul, [facility] [place] [facility] [address] [id number] [place] [address] Jul, [facility] [place] [facility] [address] [id number] [place] [address] Jun, [facility] [place] [facility] [address] [id number] [place] [address] Jun, [facility] [place] [facility] [address] [id number] [place] [address] Jun, [facility] [place] [facility] [address] [id number] [place] [address] Jun, [facility] [place] [facility] [address] [id number] [place] [address] Jun, [facility] [place] [facility] [address] [id number] [place] [address] Jun, [facility] [place] [facility] [address] [id number] [place] [address] May, [facility] [place] [facility] [address] [id number] [place] [address] May, [facility] [place] [facility] [address] [id number] [place] [address] May, [facility] [place] [facility] [address] [id number] [place] [address] May, [facility] [place] [facility] [address] [id number] [place] [address] February, [facility] [place] [facility] [address] [id number] [place] [address] February, [facility] [place] [facility] [address] [id number] [place] [address] Nov, [facility] [place] [facility] [address] [id number] [place] [address] Nov, [facility] [place] [facility] [address] [id number] [place] [address] Jul, [facility] [place] [facility] [address] [id number] [place] [address] Jul, [facility] [place] [facility] [address] [id number] [place] [address] Jul, [facility] [place] [facility] [address] [id number] [place] [address] Jul, [facility] [place] [facility] [address] [id number] [place] [address] May, [facility] [place] [facility] [address] [id number] [place] [address] May, [facility] [place] [facility] [address] [id number] [place] [address] February, [facility] [place] [facility] [address] [id number] [place] [address] Dec, [facility] [place] [facility] [address] [id number] [place] [address] Dec, [facility] [place] [facility] [address] [id number] [place] [address] Dec, [facility] [place] [facility] [address] [id number] [place] [address] Nov, [facility] [place] [facility] [address] [id number] [place] [address] Oct, [facility] [place] [facility] [address] [id number], [place] [address] Sep, [facility] [place] [facility] [address] [id number] [place] [address] Sep, [facility] [place] [facility] [address] [id number] [place] [address] Aug, [facility] [place] [facility] [address] [id number], [place] [address] Aug, [facility] [place] [facility] [address] [id number], [place] [address] Jul, [facility] [address] [id number] [place] [address] Jul, [facility] [place] [facility] [address] [id number] [place] [address] Jul, [facility] [address] [facility] [id number] [place] [address] Apr, [facility] [place] [facility] [address] [id number] [place] [address] Apr, [facility] [address] [id number] [place] [address] Mar, [facility] [place] [facility] [address] [facility] [id number] [place] [address] February, [facility] [id number] [place] [address] Jan, [facility] [place] [facility] [address] [facility] [id number] [place] [address] Jan, [facility] [id number] [place] [address] Dec, [facility] [place] [facility] [address] [facility] [id number] [place] [address] Nov, [facility] [address] [facility] [id number] [place] [address] Nov, [facility] [place] [facility] [address] [facility] [id number], [place] [address] Sep, [facility] [place] [facility] [address] [id number] [place] [address] Aug, [facility] [place] [facility] [address] [facility] [id number] [place] [address] Jul, [facility] [place] [facility] [address] [facility] [id number], [place] [address] Sep, [facility] [place] [facility] [address] [facility] [id number] [place] [address] Sep, [facility] [address] [facility] [id number], [place] [address] Aug, [facility] [address] [facility] [id number], [place] [address] Aug, [facility] [address] [facility] [id number], [place] [address] Jul, IMMUNIZATIONS No Known Immunizations SOCIAL HISTORY Never Assessed REASON FOR VISIT f/u Karley PLAN OF CARE Activity Details Follow Up 4 Months Reason: VITAL SIGNS Height 60 in 2018-07-19 Weight 149.4 lbs 2018-07-19 Heart Rate 96 bpm 2018-07-19 Respiratory Rate 20 2018-07-19 BMI 29.17 kg/m2 2018-07-19 Blood pressure systolic 108 mmHg 2018-07-19 Blood pressure diastolic 72 mmHg 2018-07-19 MEDICATIONS Medication Instructions Dosage Frequency Start Date End Date Duration Status Vitamin D 5000 UNIT Orally Once a day 1 tablet 24h Active Multi Complete Not-Taking Nicorette Not-Taking Loxapine Succinate 10 mg Orally at bedtime for mood and sleep 1 capsule Active Topamax 100 mg Orally Twice a day 1 tablet 12h Active Natazia 3/2-2/2-3/1 MG Orally Once a day 1 tablet 24h Active Fetzima 40MG TAKE ONE CAPSULE BY MOUTH ONCE DAILY Active Latuda 40 MG Orally in the evening 1 tablet with food Active Atomoxetine HCl 25 MG Orally Twice a day for ADHD 1 capsule Aug, Active Oxybutynin Chloride ER 10 MG Orally Once a day 1 tablet 24h Active Trazodone HCl 100MG TAKE TWO TABLETS BY MOUTH AT BEDTIME FOR SLEEP Active midodrine 10 mg 1 Tablet by Oral route 3 times per day Aug, Active RESULTS No Results PROCEDURES Procedure Date Ordered Result Body Site [facility] VISIT ESTABLISHED PATIENT Jul 19, 2018 INSTRUCTIONS MEDICATIONS ADMINISTERED No Known Medications MEDICAL [...]
--- OUTSIDE RECORDS SUMMARY | 2019-04-20 14:02 | XMS REPORT ---
Author Author MILTON ANIRUDH [facility] Address [address] [place] [address] Care Team Providers Care Pharmacy Technician Assistant Name Role Phone MILTON ANIRUDH Unavailable PROBLEMS Type Condition ICD9-CM Code CYL41-PQ Code Onset Dates Condition Status SNOMED Code Problem Bipolar disorder current episode depressed F31.30 Active 098076032 Problem Long-term use of high-risk medication Z79.899 Active 399848830 Problem Bipolar disorder, current episode mixed, severe, without psychotic features F31.63 Active 755320480 Problem Bipolar affective disorder, currently depressed, mild F31.31 Active 919386550 Problem Cocaine use F14.90 Active 622536702 Problem ADHD (attention deficit hyperactivity disorder), inattentive type F90.0 Active 66844944 Problem LUCY (generalized anxiety disorder) F41.1 Active 34497641 Problem Bipolar affective disorder, current episode hypomanic F31.0 Active 03298823 Problem Bipolar disorder in partial remission, most recent episode unspecified type F31.70 Active 980613924 Problem Other and unspecified bipolar disorders 296.89 Active 87566879 Problem Unspecified anemia 285.9 Active 482237038 Problem Major depressive disorder, recurrent episode, moderate 296.32 Active 60284276 Problem Nondependent cocaine abuse, unspecified 305.60 Active 974869801 Problem Moderate mixed bipolar I disorder F31.62 Active 80372360 ALLERGIES No Information ENCOUNTERS Encounter Location Date Diagnosis [facility] [address] [facility] [id number] [address] Jul, [facility] [address] [id number] [address] May, [facility] [address] [id number] [address] May, [facility] [address] [id number] [address] Apr, Bipolar affective disorder, currently depressed, mild F31.31 ; Cocaine use F14.90 ; LUCY (generalized anxiety disorder) F41.1 ; Long-term use of high- risk medication Z79.899 and ADHD (attention deficit hyperactivity disorder), inattentive type F90.0 [facility] [address] [address] Apr, [facility] [id number] [place] [address] Apr, Bipolar affective disorder, current episode hypomanic F31.0 ; LUCY (generalized anxiety disorder) F41.1 ; ADHD (attention deficit hyperactivity disorder), inattentive type F90.0 and Encounter for drug screening Z02.83 [address] [id number] [place] [address] Apr, [place] [id number] [place] [address] Jan, [facility] [id number] [place] [address] Dec, [place] [id number] [place] [address] Dec, Bipolar affective disorder, current episode hypomanic F31.0 ; Long- term use of high-risk medication Z79.899 and LUCY (generalized anxiety disorder) F41.1 [place] [id number] [place] [address] Nov, [facility] [id number] [place] [address] Oct, [place] [id number] [place] [address] Sep, Bipolar disorder in partial remission, most recent episode unspecified type F31.70 ; ADHD (attention deficit hyperactivity disorder), inattentive type F90.0 and LUCY (generalized anxiety disorder) F41.1 [place] [address]65100[place] [address] Sep, [place] [id number] [place] [address] Aug, Bipolar disorder in partial remission, most recent episode unspecified type F31.70 ; Long-term use of high-risk medication Z79.899 ; ADHD (attention deficit hyperactivity disorder), inattentive type F90.0 and LUCY (generalized anxiety disorder) F41.1 [place] [id number] [place] [address] Aug, [place] [id number] [place] [address] Jul, [place] [id number] [place] [address] May, Visit for TB skin test Z11.1 [place] [id number] [place] [address] May, [place] [id number] [place] [address] Apr, Moderate mixed bipolar I disorder F31.62 and PTSD (post-traumatic stress disorder) F43.10 [place] [address] [address] Mar, [place] [id number] [place] [address] Jan, Moderate mixed bipolar I disorder F31.62 ; PTSD (post-traumatic stress disorder) F43.10 and Long-term use of high-risk medication Z79.899 [place] [id number] [place] [address] Oct, Moderate mixed bipolar I disorder F31.62 and PTSD (post-traumatic stress disorder) F43.10 [place] [address] [address] Sep, PTSD (post-traumatic stress disorder) F43.10 and Moderate mixed bipolar I disorder F31.62 [facility] [address] [facility] [id number] [place] [address] Sep, [facility] [address] [facility] [id number] [place] [address] Sep, [facility] [address] [facility] [id number] [place] [address] Aug, PTSD (post-traumatic stress disorder) F43.10 and Moderate mixed bipolar I disorder F31.62 [facility] [address] [facility] [id number] [place] [address] Jul, [facility] [address] [facility] [id number] [place] [address], [place] [address] Jul, [facility] [id number] [address] Jul, PTSD (post-traumatic stress disorder) F43.10 and Moderate mixed bipolar I disorder F31.62 [facility] [address] [facility] [id number] [address] May, [facility] [address] [facility] [id number] [address] May, [facility] [address] [id number] [address] Apr, [facility] [address] [id number] [address] Apr, [facility] [address] [facility] [id number] [address] Apr, PTSD (post-traumatic stress disorder) F43.10 and Moderate mixed bipolar I disorder F31.62 [facility] [address] [facility] [id number] [place] [address] Mar, [facility] [address] [facility] [id number] [address] Mar, [facility] [address] [address] Mar, [facility] [address] [address] February, [facility] [address] [address] February, [facility] [id number] [place] [address] Jan, Moderate mixed bipolar I disorder F31.62 and PTSD (post-traumatic stress disorder) F43.10 [place] [address]00565100[place] [address] Jan, [facility] [id number] [place] [address] 24 Dec, 2015 Moderate mixed bipolar I disorder F31.62 and PTSD (post-traumatic stress disorder) F43.10 [place] [address] [address] Dec, PTSD (post-traumatic stress disorder) F43.10 and Bipolar disorder current episode depressed F31.30 [place] [address]00565[address] [address] Sep, [place] [address] [address] Sep, Moderate mixed bipolar I disorder F31.62 and PTSD (post-traumatic stress disorder) F43.10 [place] [address] [address] Aug, PTSD (post-traumatic stress disorder) F43.10 and Moderate mixed bipolar I disorder F31.62 [place] [address] [address] 08 Jul, 2015 PTSD (post-traumatic stress disorder) F43.10 and Moderate mixed bipolar I disorder F31.62 [place] [id number] [place] [address] May, [facility] [address] [facility] [id number] [address] May, Bipolar I disorder, most recent episode (or current) mixed, in partial or unspecified remission 296.65 and PTSD (post-traumatic stress disorder) 309.81 [facility] [address] [id number] [address] Apr, Bipolar I disorder, most recent episode (or current) mixed, moderate 296.62 and Posttraumatic stress disorder 309.81 [facility] [address] [facility] [id number] [address] Mar, [facility] [id number] [place] [address] February, [facility] [address] [id number] [address] February, [facility] [address] [id number] [address] Jan, [facility] [address]00565100[place] [address] Jan, [facility] [address]005[address] [address] Dec, [facility] [address]005[address] [address] Dec, [facility] [id number] [address] Dec, [facility] [address] [id number] [address] Dec, [facility] [address] [id number] [address] Nov, [facility] [address]005[address] [address] Nov, [facility] [address] [id number] [address] Nov, [facility] [address] [id number] [place] [address] Nov, [facility] [place] [facility] [address] [id number] [place] [address] Nov, [facility] [address] [id number] [place] [address] Oct, [facility] [place] [facility] [address] [id number] [place] [address] Oct, [facility] [address] [id number] [place] [address] Oct, [facility] [address] [id number] [place] [address] Oct, [facility] [address] [facility] [id number] [place] [address] Oct, [facility] [address] [id number] [place] [address] Oct, [facility] [address] [id number] [place] [address] Sep, [facility] [address] [id number] [place] [address] Sep, [facility] [place] [facility] [address] [id number] [place] [address] Sep, [facility] [place] [facility] [address] [id number] [place] [address] Sep, [facility] [place] [facility] [address] [id number] [place] [address] Sep, [facility] [place] [facility] [address] [id number] [place] [address] Sep, [facility] [place] [facility] [address] [id number] [place] [address] Sep, [facility] [place] [facility] [address] [id number] [place] [address] Sep, [facility] [place] [facility] [address] [id number] [place] [address] Sep, [facility] [place] [facility] [address] [id number] [place] [address] Sep, [facility] [place] [facility] [address] [id number] [place] [address] Aug, [facility] [place] [facility] [address] [id number] [place] [address] Aug, [facility] [place] [facility] [address] [id number] [place] [address] Aug, [facility] [place] [facility] [address] [id number] [place] [address] Aug, [facility] [place] [facility] [address] [id number] [address] Aug, [facility] [place] [facility] [address] [id number] [place] [address] Aug, [facility] [place] [facility] [address] [id number] [address] Jul, [facility] [place] [facility] [address] [id number] [address] Jul, [facility] [place] [facility] [address] [id number] [address] Jun, [facility] [place] [facility] [address] [id number] [place] [address] Jun, [facility] [place] [facility] [address] [id number] [address] Jun, [facility] [place] [facility] [address] [id number] [address] Jun, [facility] [place] [facility] [address] [id number] [address] Jun, [facility] [place] [facility] [address] [id number] [place] [address] Jun, [facility] [place] [facility] [address] [id number] [place] [address] May, [facility] [place] [facility] [address] [id number] [place] [address] May, [facility] [place] [facility] [address] [id number] [place] [address] May, [facility] [place] [facility] [address] [id number] [place] [address] May, [facility] [place] [facility] [address] [id number] [place] [address] February, [facility] [place] [facility] [address] [id number] [place] [address] February, [facility] [place] [facility] [address] [id number] [place] [address] Nov, [facility] [place] [facility] [address] [id number] [place] [address] Nov, [facility] [place] [facility] [address] [id number] [place] [address] Jul, [facility] [place] [facility] [address] [id number] [place] [address] Jul, [facility] [place] [facility] [address] [id number] [place] [address] Jul, [facility] [place] [facility] [address] [id number] [place] [address] Jul, [facility] [place] [facility] [address] [id number] [place] [address] May, [facility] [place] [facility] [address] [id number] [place] [address] May, [facility] [place] [facility] [address] [id number] [place] [address] February, [facility] [place] [facility] [address] [id number] [place] [address] Dec, [facility] [place] [facility] [address] [id number] [place] [address] Dec, [facility] [place] [facility] [address] [id number] [place] [address] Dec, [facility] [place] [facility] [address] [id number] [place] [address] Nov, [facility] [place] [facility] [address] [id number] [place] [address] Oct, [facility] [place] [facility] [address] [id number] [place] [address] Sep, [facility] [place] [facility] [address] [id number] [place] [address] Sep, [facility] [place] [facility] [address] [id number] [place] [address] Aug, [facility] [place] [facility] [address] [id number] [place] [address] Aug, [facility] [place] [facility] [address] [id number] [place] [address] Jul, [facility] [place] [facility] [address] [id number] [place] [address] Jul, [facility] [place] [facility] [address] [id number] [place] [address] Jul, [facility] [place] [facility] [address] [id number] [place] [address] Apr, [facility] [place] [facility] [address] [id number] [place] [address] Apr, [facility] [place] [facility] [address] [id number] [place] [address] Mar, [facility] [address] [address] February, [facility] [address] [address] Jan, [facility] [address] [address] Jan, [facility] [address] [address] Dec, [facility] [address] [address] Nov, [facility] [id number] [place] [address] Nov, [facility] [id number] [place] [address] Sep, [facility] [address] [address] Aug, [facility] [id number] [place] [address] Jul, [facility] [address] [address] Sep, [facility] [address] [address] Sep, [facility] [address] [address] Aug, [facility] [address] [address] Aug, [facility] [address] [address] Jul, IMMUNIZATIONS No Known Immunizations SOCIAL HISTORY Never Assessed REASON FOR VISIT BH f/reji Dempsey MA, bipolar disorder; anxiety PLAN OF CARE Activity Details Follow Up 10 W Reason: VITAL SIGNS Height 60 in 2018-05-08 Weight 152.8 lbs 2018-05-08 Heart Rate 100 bpm 2018-05-08 Respiratory Rate 20 2018-05-08 BMI 29.84 kg/m2 2018-05-08 Blood pressure systolic 100 mmHg 2018-05-08 Blood pressure diastolic 68 mmHg 2018-05-08 MEDICATIONS Medication Instructions Dosage Frequency Start Date End Date Duration Status Vitamin D 5000 UNIT Orally Once a day 1 tablet 24h Active Natazia 3/2-2/2-3/1 MG Orally Once a day 1 tablet 24h Active Latuda 40 MG Orally in the evening 1 tablet with food Active Nicorette Active Trazodone HCl 100MG TAKE TWO TABLETS BY MOUTH AT BEDTIME FOR SLEEP Active Oxybutynin Chloride ER 10 MG Orally Once a day 1 tablet 24h Active Topamax 100 mg Orally Twice a day 1 tablet 12h Active Loxapine Succinate 10 mg Orally at bedtime for sleep 1 or 2 capsule Active Clonazepam 0.5 MG Orally twice a day for anxiety. Must last 30 days. 1 tablet Active Multi Complete Not-Taking Fetzima 40MG TAKE ONE CAPSULE BY MOUTH ONCE DAILY Active Atomoxetine HCl 25 MG Orally Twice a day for ADHD 1 capsule Aug, Active midodrine 10 mg 1 Tablet by Oral route 3 times per day Aug, Active RESULTS No Results PROCEDURES Procedure Date Ordered Result Body Site [facility] VISIT ESTABLISHED PATIENT May 08, 2018 INSTRUCTIONS MEDICATIONS ADMINISTERED No Known Medications [...]
--- OUTSIDE RECORDS SUMMARY | 2019-04-20 14:02 | XMS REPORT ---
Author Author MINGOMIGUEL [facility] Address [address] [place] [address] Care Team Providers Care Shuttle Fixer Name Role Phone MINGO, KAELA Unavailable PROBLEMS Type Condition ICD9-CM Code HPE20-SC Code Onset Dates Condition Status SNOMED Code Problem Bipolar disorder current episode depressed F31.30 Active 059364534 Problem Long-term use of high-risk medication Z79.899 Active 664489572 Problem Bipolar disorder, current episode mixed, severe, without psychotic features F31.63 Active 958711932 Problem Bipolar affective disorder, currently depressed, mild F31.31 Active 803972086 Problem Cocaine use F14.90 Active 762946088 Problem ADHD (attention deficit hyperactivity disorder), inattentive 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62 Active 88190358 ALLERGIES No Information ENCOUNTERS Encounter Location Date Diagnosis [facility] [address] [facility] [id number] [address] Jul, [facility] [id number] [address] May, [facility] [id number] [address] May, [facility] [id number] [place] [address] Apr, Bipolar affective disorder, currently depressed, mild F31.31 ; Cocaine use F14.90 ; LUCY (generalized anxiety disorder) F41.1 ; Long-term use of high- risk medication Z79.899 and ADHD (attention deficit hyperactivity disorder), inattentive type F90.0 [facility] [address] [place] [address] Apr, [facility] [id number] [place] [address] Apr, Bipolar affective disorder, current episode hypomanic F31.0 ; LUCY (generalized anxiety disorder) F41.1 ; ADHD (attention deficit hyperactivity disorder), inattentive type F90.0 and Encounter for drug screening Z02.83 [id number] [place] [address] Apr, [place] [id number] [place] [address] Jan, [facility] [id number] [place] [address] Dec, [place] [id number] [place] [address] Dec, Bipolar affective disorder, current episode hypomanic F31.0 ; Long- term use of high-risk medication Z79.899 and LUCY (generalized anxiety disorder) F41.1 [place] [id number] [place] [address] Nov, [place] [id number] [place] [address] Oct, [place] [id number] [place] [address] Sep, Bipolar disorder in partial remission, most recent episode unspecified type F31.70 ; ADHD (attention deficit hyperactivity disorder), inattentive type F90.0 and LUCY (generalized anxiety disorder) F41.1 [place] [address] [address] Sep, [place] [id number] [place] [address] Aug, Bipolar disorder in partial remission, most recent episode unspecified type F31.70 ; Long-term use of high-risk medication Z79.899 ; ADHD (attention deficit hyperactivity disorder), inattentive type F90.0 and LUCY (generalized anxiety disorder) F41.1 [place] [id number] [place] [address] Aug, [place] [id number] [place] [address] Jul, [place] [id number] [place] [address] May, Visit for TB skin test Z11.1 [place] [id number] [place] [address] May, [place] [id number] [place] [address] Apr, Moderate mixed bipolar I disorder F31.62 and PTSD (post-traumatic stress disorder) F43.10 [place] [address] [place] [address] Mar, [place] [id number] [place] [address] Jan, Moderate mixed bipolar I disorder F31.62 ; PTSD (post-traumatic stress disorder) F43.10 and Long-term use of high-risk medication Z79.899 [place] [id number] [place] [address] Oct, Moderate mixed bipolar I disorder F31.62 and PTSD (post-traumatic stress disorder) F43.10 [place] [address] [place] [address] Sep, PTSD (post-traumatic stress disorder) F43.10 and Moderate mixed bipolar I disorder F31.62 [facility] [address] [facility] [id number] [address] Sep, [facility] [address] [facility] [id number] [address] Sep, [facility] [id number] [address] Aug, PTSD (post-traumatic stress disorder) F43.10 and Moderate mixed bipolar I disorder F31.62 [facility] [address] [facility] [id number] [place] [address] Jul, [facility] [address] [facility] [id number] [place] [address] Jul, [facility] [id number] [address] Jul, PTSD (post-traumatic stress disorder) F43.10 and Moderate mixed bipolar I disorder F31.62 [facility] [id number] [address] May, [facility] [address] [facility] [id number] [address] May, [facility] [id number] [address] Apr, [facility] [id number] [address] Apr, [facility] [address] [facility] [id number] [address] Apr, PTSD (post-traumatic stress disorder) F43.10 and Moderate mixed bipolar I disorder F31.62 [facility] [address] [facility] [id number] [place] [address] Mar, [facility] [address] [facility] [id number] [address] Mar, [facility] [address] [address] Mar, [facility] [address] [address] February, [facility] [address] [address] February, [facility] [id number] [place] [address] Jan, Moderate mixed bipolar I disorder F31.62 and PTSD (post-traumatic stress disorder) F43.10 [place] [address] [place] [address] Jan, [place] [address] [place] [address] 24 Dec, 2015 Moderate mixed bipolar I disorder F31.62 and PTSD (post-traumatic stress disorder) F43.10 [place] [address] [address] Dec, PTSD (post-traumatic stress disorder) F43.10 and Bipolar disorder current episode depressed F31.30 [place] [address] [address] Sep, [place] [address] [address] Sep, Moderate mixed bipolar I disorder F31.62 and PTSD (post-traumatic stress disorder) F43.10 [place] [address] [address] Aug, PTSD (post-traumatic stress disorder) F43.10 and Moderate mixed bipolar I disorder F31.62 [place] [address] [address] 08 Jul, 2015 PTSD (post-traumatic stress disorder) F43.10 and Moderate mixed bipolar I disorder F31.62 [place] [address] [address] May, [facility] [address] [address] May, Bipolar I disorder, most recent episode (or current) mixed, in partial or unspecified remission 296.65 and PTSD (post-traumatic stress disorder) 309.81 [facility] [address] [address] Apr, Bipolar I disorder, most recent episode (or current) mixed, moderate 296.62 and Posttraumatic stress disorder 309.81 [facility] [address] [address] Mar, [facility] [address] [address] February, [facility] [address] [address] February, [facility] [address] [address] Jan, [facility] [address] [address] Jan, [facility] [address] [address] Dec, [facility] [address] [address] Dec, [facility] [id number] [address] Dec, [facility] [id number] [address] Dec, [facility] [address] [address] Nov, [facility] [id number] [address] Nov, [facility] [address] [place] [address] Nov, 2014 [facility] [address] [id number] [place] [address] Nov, [facility] [place] [facility] [address] [id number] [place] [address] Nov, [facility] [place] [facility] [address] [id number] [place] [address] Oct, [facility] [place] [facility] [address] [id number] [place] [address] Oct, [facility] [place] [facility] [address] [id number] [place] [address] Oct, [facility] [place] [facility] [address] [id number] [place] [address] Oct, [facility] [place] [facility] [address] [id number] [place] [address] Oct, [facility] [address] [id number] [place] [address] Oct, [facility] [place] [facility] [address] [id number] [place] [address] Sep, [facility] [address] [id number] [place] [address] Sep, [facility] [place] [facility] [address] [id number] [place] [address] Sep, [facility] [place] [facility] [address] [id number] [place] [address] Sep, [facility] [place] [facility] [address] [id number] [place] [address] Sep, [facility] [place] [facility] [address] [id number] [place] [address] Sep, [facility] [place] [facility] [address] [id number] [place] [address] Sep, [facility] [place] [facility] [address] [id number] [place] [address] Sep, [facility] [place] [facility] [address] [id number] [place] [address] Sep, [facility] [place] [facility] [address] [id number] [place] [address] Sep, [facility] [place] [facility] [address] [id number] [place] [address] Aug, [facility] [place] [facility] [address] [id number] [place] [address] Aug, [facility] [place] [facility] [address] [id number] [place] [address] Aug, [facility] [place] [facility] [address] [id number] [place] [address] Aug, [facility] [place] [facility] [address] [id number] [place] [address] Aug, [facility] [place] [facility] [address] [id number] [place] [address] Aug, [facility] [place] [facility] [address] [id number] [address] Jul, [facility] [place] [facility] [address] [id number] [address] Jul, [facility] [place] [facility] [address] [id number] [address] Jun, [facility] [place] [facility] [address] [id number] [place] [address] Jun, [facility] [place] [facility] [address] [id number] [address] Jun, [facility] [place] [facility] [address] [id number] [place] [address] Jun, [facility] [place] [facility] [address] [id number] [place] [address] Jun, [facility] [place] [facility] [address] [id number] [place] [address] Jun, [facility] [place] [facility] [address] [id number] [place] [address] May, [facility] [place] [facility] [address] [id number] [place] [address] May, [facility] [place] [facility] [address] [id number] [place] [address] May, [facility] [place] [facility] [address] [id number] [place] [address] May, [facility] [place] [facility] [address] [id number] [place] [address] February, [facility] [place] [facility] [address] [id number] [place] [address] February, [facility] [place] [facility] [address] [id number] [place] [address] Nov, [facility] [place] [facility] [address] [id number] [place] [address] Nov, [facility] [place] [facility] [address] [id number] [place] [address] Jul, [facility] [place] [facility] [address] [id number] [place] [address] Jul, [facility] [place] [facility] [address] [id number] [place] [address] Jul, [facility] [place] [facility] [address] [id number] [place] [address] Jul, [facility] [place] [facility] [address] [id number] [place] [address] May, [facility] [place] [facility] [address] [id number] [place] [address] May, [facility] [place] [facility] [address] [id number] [place] [address] February, [facility] [place] [facility] [address] [id number] [place] [address] Dec, [facility] [place] [facility] [address] [id number] [place] [address] Dec, [facility] [place] [facility] [address] [id number] [place] [address] Dec, [facility] [address] [id number] [place] [address] Nov, [facility] [place] [facility] [address] [id number] [place] [address] Oct, [facility] [address] [id number] [place] [address] Sep, [facility] [address] [id number] [place] [address] Sep, [facility] [place] [facility] [address] [id number] [place] [address] Aug, [facility] [address] [id number] [place] [address] Aug, [facility] [place] [facility] [address] [id number] [place] [address] Jul, [facility] [place] [facility] [address] [id number] [place] [address] Jul, [facility] [place] [facility] [address] [id number] [place] [address] Jul, [facility] [place] [facility] [address] [id number] [place] [address] Apr, [facility] [place] [facility] [address] [id number] [place] [address] Apr, [facility] [place] [facility] [address] [id number] [address] Mar, [facility] [address] [address] February, [facility] [address] [address] Jan, [facility] [address] [address] Jan, [facility] [address] [address] Dec, [facility] [address] [place] [address] Nov, [facility] [address] [place] [address] Nov, [facility] [address] [place] [address] Sep, [facility] [address] [address] Aug, [facility] [id number] [place] [address] Jul, [facility] [address] [address] Sep, [facility] [address] [address] Sep, [facility] [address] [address] Aug, [facility] [address] [address] Aug, [facility] [address] [address] Jul, IMMUNIZATIONS No Known Immunizations SOCIAL HISTORY Never Assessed REASON FOR VISIT klonopin PLAN OF CARE VITAL SIGNS MEDICATIONS Medication Instructions Dosage Frequency Start Date End Date Duration Status Clonazepam 0.5 MG Orally ONCE A DAY for anxiety 1 tablet 30 days Active RESULTS No Results PROCEDURES No Known [...]
--- OUTSIDE RECORDS SUMMARY | 2019-04-20 14:02 | XMS REPORT ---
Author Author MILTON ANIRUDH [facility] Address [address] [place] [address] Care Team Providers Care Nutrition Specialist Name Role Phone MILTON ANIRUDH Unavailable PROBLEMS Type Condition ICD9-CM Code [id number] Code Onset Dates Condition Status SNOMED Code Problem Bipolar disorder current episode depressed F31.30 Active 640088244 Problem Long-term use of high-risk medication Z79.899 Active 931194010 Problem Bipolar disorder, current episode mixed, severe, without psychotic features F31.63 Active 096949318 Problem Bipolar affective disorder, currently depressed, mild F31.31 Active 150649700 Problem Cocaine use F14.90 Active 163490078 Problem ADHD (attention deficit hyperactivity disorder), inattentive type F90.0 Active 88529848 Problem LUCY (generalized anxiety disorder) F41.1 Active 72045796 Problem Bipolar affective disorder, current episode hypomanic F31.0 Active 01902409 Problem Bipolar disorder in partial remission, most recent episode unspecified type F31.70 Active 012773445 Problem Other and unspecified bipolar disorders 296.89 Active 60048161 Problem Unspecified anemia 285.9 Active 285957881 Problem Major depressive disorder, recurrent episode, moderate 296.32 Active 83322626 Problem Nondependent cocaine abuse, unspecified 305.60 Active 883305791 Problem Moderate mixed bipolar I disorder F31.62 Active [id number] ALLERGIES No Information ENCOUNTERS Encounter Location Date Diagnosis [facility] [place] [address] [facility] [id number] [address] Jul, [facility] [place] [address] [id number] [address] May, [facility] [place] [address] [id number], [place] [address] May, [facility] [place] [address] [id number], [place] [address] Apr, Bipolar affective disorder, currently depressed, mild F31.31 ; Cocaine use F14.90 ; LUCY (generalized anxiety disorder) F41.1 ; Long-term use of high- risk medication Z79.899 and ADHD (attention deficit hyperactivity disorder), inattentive type F90.0 [facility] [place] [address], [place] [address] Apr, [facility] [place] [id number] [place] [address] Apr, Bipolar affective disorder, current episode hypomanic F31.0 ; LUCY (generalized anxiety disorder) F41.1 ; ADHD (attention deficit hyperactivity disorder), inattentive type F90.0 and Encounter for drug screening Z02.83 [address] [place] [address] Apr, [place] [id number] [place] [address] Jan, [facility] [place] [address] [place] [address] Dec, [place] [id number] [place] [address] Dec, Bipolar affective disorder, current episode hypomanic F31.0 ; Long- term use of high-risk medication Z79.899 and LUCY (generalized anxiety disorder) F41.1 [place] [address] [place] [address] Nov, [facility] [place] [address] [place] [address] Oct, [place] [id number] [place] [address] Sep, Bipolar disorder in partial remission, most recent episode unspecified type F31.70 ; ADHD (attention deficit hyperactivity disorder), inattentive type F90.0 and LUCY (generalized anxiety disorder) F41.1 [place] [address] Sep, [place] [id number] [place] [address] Aug, Bipolar disorder in partial remission, most recent episode unspecified type F31.70 ; Long-term use of high-risk medication Z79.899 ; ADHD (attention deficit hyperactivity disorder), inattentive type F90.0 and LUCY (generalized anxiety disorder) F41.1 [place] [id number] [place] [address] Aug, [place] [id number] [place] [address] Jul, [place] [id number] [place] [address] May, Visit for TB skin test Z11.1 [place] [id number] [place] [address] May, [place] [id number] [place] [address] Apr, Moderate mixed bipolar I disorder F31.62 and PTSD (post-traumatic stress disorder) F43.10 [place] [address] [address] Mar, [place] [id number] [place] [address] Jan, Moderate mixed bipolar I disorder F31.62 ; PTSD (post-traumatic stress disorder) F43.10 and Long-term use of high-risk medication Z79.899 [place] [id number] [place] [address] Oct, Moderate mixed bipolar I disorder F31.62 and PTSD (post-traumatic stress disorder) F43.10 [place] [address] [address] Sep, PTSD (post-traumatic stress disorder) F43.10 and Moderate mixed bipolar I disorder F31.62 [facility] [address] [facility] [id number] [place] [address] Sep, [facility] [address] [facility] [id number] [place] [address] Sep, [facility] [address] [facility] [id number] [place] [address] Aug, PTSD (post-traumatic stress disorder) F43.10 and Moderate mixed bipolar I disorder F31.62 [facility] [address] [facility] [id number] [place] [address] Jul, [facility] [address] [facility] [id number] [place] [address], [place] [address] Jul, [facility] [id number] [place] [address] Jul, PTSD (post-traumatic stress disorder) F43.10 and Moderate mixed bipolar I disorder F31.62 [facility] [address] [facility] [id number], [place] [address] May, [facility] [address] [facility] [id number], [place] [address] May, [facility] [id number], [place] [address] Apr, [facility] [id number], [place] [address] Apr, [facility] [address] [facility] [id number], [place] [address] Apr, PTSD (post-traumatic stress disorder) F43.10 and Moderate mixed bipolar I disorder F31.62 [facility] [address] [facility] [id number] [place] [address] Mar, [facility] [address] [facility] [id number], [place] [address] Mar, [facility] [place] [address], [place] [address] Mar, [facility] [place] [address], [place] [address] February, [facility] [place] [address], [place] [address] February, [facility] [place] [address] [place] [address] Jan, Moderate mixed bipolar I disorder F31.62 and PTSD (post-traumatic stress disorder) F43.10 [place] [address] [address] Jan, [facility] [place] [address] [place] [address] 24 Dec, 2015 Moderate mixed bipolar I disorder F31.62 and PTSD (post-traumatic stress disorder) F43.10 [place] [address], [place] [address] Dec, PTSD (post-traumatic stress disorder) F43.10 and Bipolar disorder current episode depressed F31.30 [place] [address], [place] [address] Sep, [place] [address], [place] [address] Sep, Moderate mixed bipolar I disorder F31.62 and PTSD (post-traumatic stress disorder) F43.10 [place] [address], [place] [address] Aug, PTSD (post-traumatic stress disorder) F43.10 and Moderate mixed bipolar I disorder F31.62 [place] [address], [place] [address] 08 Jul, 2015 PTSD (post-traumatic stress disorder) F43.10 and Moderate mixed bipolar I disorder F31.62 [place] [address] [place] [address] May, [facility] [place] [address] [facility] [id number], [place] [address] May, Bipolar I disorder, most recent episode (or current) mixed, in partial or unspecified remission 296.65 and PTSD (post-traumatic stress disorder) 309.81 [facility] [id number] [address] Apr, Bipolar I disorder, most recent episode (or current) mixed, moderate 296.62 and Posttraumatic stress disorder 309.81 [facility] [place] [address] [facility] [id number], [place] [address] Mar, [facility] [place] [id number] [place] [address] February, [facility] [place] [id number], [place] [address] February, [facility] [place] [id number], [place] [address] Jan, [facility] [address], [place] [address] Jan, [facility] [address], [place] [address] Dec, [facility] [place] [address], [place] [address] Dec, [facility] [id number], [place] [address] Dec, [facility] [id number], [place] [address] Dec, [facility] [id number], [place] [address] Nov, [facility] [address], [place] [address] Nov, [facility] [id number] [place] [address] Nov, [facility] [address] [id number] [place] [address] Nov, [facility] [place] [facility] [address] [id number] [place] [address] Nov, [facility] [address] [id number] [place] [address] Oct, [facility] [place] [facility] [address] [id number] [place] [address] Oct, [facility] [address] [id number] [place] [address] Oct, [facility] [address] [id number] [place] [address] Oct, [facility] [address] [facility] [id number] [place] [address] Oct, [facility] [address] [id number] [place] [address] Oct, [facility] [address] [id number] [place] [address] Sep, [facility] [address] [id number] [place] [address] Sep, [facility] [place] [facility] [address] [id number] [place] [address] Sep, [facility] [place] [facility] [address] [id number] [place] [address] Sep, [facility] [place] [facility] [address] [id number] [place] [address] Sep, [facility] [place] [facility] [address] [id number] [place] [address] Sep, [facility] [place] [facility] [address] [id number] [place] [address] Sep, [facility] [place] [facility] [address] [id number] [place] [address] Sep, [facility] [place] [facility] [address] [id number] [place] [address] Sep, [facility] [place] [facility] [address] [id number] [place] [address] Sep, [facility] [place] [facility] [address] [id number] [place] [address] Aug, [facility] [place] [facility] [address] [id number] [place] [address] Aug, [facility] [place] [facility] [address] [id number] [place] [address] Aug, [facility] [place] [facility] [address] [id number] [place] [address] Aug, [facility] [place] [facility] [address] [id number], [place] [address] Aug, [facility] [place] [facility] [address] [id number] [place] [address] Aug, [facility] [place] [facility] [address] [id number], [place] [address] Jul, [facility] [place] [facility] [address] [id number], [place] [address] Jul, [facility] [place] [facility] [address] [id number], [place] [address] Jun, [facility] [place] [facility] [address] [id number] [place] [address] Jun, [facility] [place] [facility] [address] [id number], [place] [address] Jun, [facility] [place] [facility] [address] [id number], [place] [address] Jun, [facility] [place] [facility] [address] [id number], [place] [address] Jun, [facility] [place] [facility] [address] [id number] [place] [address] Jun, [facility] [place] [facility] [address] [id number] [place] [address] May, [facility] [place] [facility] [address] [id number] [place] [address] May, [facility] [place] [facility] [address] [id number] [place] [address] May, [facility] [place] [facility] [address] [id number] [place] [address] May, [facility] [place] [facility] [address] [id number] [place] [address] February, [facility] [place] [facility] [address] [id number] [place] [address] February, [facility] [place] [facility] [address] [id number] [place] [address] Nov, [facility] [place] [facility] [address] [id number] [place] [address] Nov, [facility] [place] [facility] [address] [id number] [place] [address] Jul, [facility] [place] [facility] [address] [id number] [place] [address] Jul, [facility] [place] [facility] [address] [id number] [place] [address] Jul, [facility] [place] [facility] [address] [id number] [place] [address] Jul, [facility] [place] [facility] [address] [id number] [place] [address] May, [facility] [place] [facility] [address] [id number] [place] [address] May, [facility] [place] [facility] [address] [id number] [place] [address] February, [facility] [place] [facility] [address] [id number] [place] [address] Dec, [facility] [place] [facility] [address] [id number] [place] [address] Dec, [facility] [place] [facility] [address] [id number] [place] [address] Dec, [facility] [place] [facility] [address] [id number] [place] [address] Nov, [facility] [place] [facility] [address] [id number] [place] [address] Oct, [facility] [place] [facility] [address] [id number] [place] [address] Sep, [facility] [place] [facility] [address] [id number] [place] [address] Sep, [facility] [place] [facility] [address] [id number] [place] [address] Aug, [facility] [place] [facility] [address] [id number] [place] [address] Aug, [facility] [place] [facility] [address] [id number] [place] [address] Jul, [facility] [place] [facility] [address] [id number] [place] [address] Jul, [facility] [place] [facility] [address] [id number] [place] [address] Jul, [facility] [place] [facility] [address] [id number] [place] [address] Apr, [facility] [place] [facility] [address] [id number] [place] [address] Apr, [facility] [place] [facility] [address] [id number] [place] [address] Mar, [facility] [place] [address], [place] [address] February, [facility] [place] [id number] [place] [address] Jan, [facility] [place] [address], [place] [address] Jan, [facility] [place] [address], [place] [address] Dec, [facility] [place] [address], [place] [address] Nov, [facility] [place] [id number] [place] [address] Nov, [facility] [place] [id number] [place] [address] Sep, [facility] [place] [address] [place] [address] Aug, [facility] [place] [address] [place] [address] Jul, [facility] [place] [address], [place] [address] Sep, [facility] [place] [address], [place] [address] Sep, [facility] [place] [address], [place] [address] Aug, [facility] [place] [address], [place] [address] Aug, [facility] [place] [address], [place] [address] Jul, IMMUNIZATIONS No Known Immunizations SOCIAL HISTORY Never Assessed REASON FOR VISIT klonopin refill PLAN OF CARE VITAL SIGNS MEDICATIONS Medication Instructions Dosage Frequency Start Date End Date Duration Status Clonazepam 0.5 MG Orally once a day for anxiety. Must last 30 days. 1 tablet Active RESULTS No Results PROCEDURES No Known [...]
--- OUTSIDE RECORDS SUMMARY | 2019-04-20 14:03 | XMS REPORT ---
Author Author MILTON ANIRUDH [facility] Address [address] [place] [address] Care Team Providers Care Composing Machine Operator/Tender Name Role Phone MILTON ANIRUDH Unavailable PROBLEMS Type Condition ICD9-CM Code RHC00-WN Code Onset Dates Condition Status SNOMED Code Problem Bipolar disorder current episode depressed F31.30 Active 050637693 Problem Long-term use of high-risk medication Z79.899 Active 298215413 Problem Bipolar disorder, current episode mixed, severe, without psychotic features F31.63 Active 056315060 Problem Bipolar affective disorder, currently depressed, mild F31.31 Active 472494091 Problem Cocaine use F14.90 Active 163660996 Problem ADHD (attention deficit hyperactivity disorder), inattentive 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62 Active 24880880 ALLERGIES Substance Reaction Event Type Date Status Macrodantin hives Drug Allergy Apr, Active [place] Carbonate itching Drug Allergy Apr, Active Fentanyl blister Drug Allergy Apr, Active Abilify 5 Mg Tablet increased glucose Non Drug Allergy Apr, Active Opioids - Morphine Analogues Unknown Non Drug Allergy Apr, Active ENCOUNTERS Encounter Location Date Diagnosis [facility] [address] [facility] [id number] [address] Jul, [facility] [address] [facility] [id number] [place] [address] May, [facility] [id number] [place] [address] May, [facility] [id number] [place] [address] Apr, Bipolar affective disorder, currently depressed, mild F31.31 ; Cocaine use F14.90 ; LUCY (generalized anxiety disorder) F41.1 ; Long-term use of high- risk medication Z79.899 and ADHD (attention deficit hyperactivity disorder), inattentive type F90.0 [facility] [id number] [place] [address] Apr, [facility] [id number] [place] [address] Apr, Bipolar affective disorder, current episode hypomanic F31.0 ; LUCY (generalized anxiety disorder) F41.1 ; ADHD (attention deficit hyperactivity disorder), inattentive type F90.0 and Encounter for drug screening Z02.83 [facility] [id number] [place] [address] Apr, [facility] [id number] [place] [address] Jan, [facility] [id number] [place] [address] Dec, [facility] [id number] [place] [address] Dec, Bipolar affective disorder, current episode hypomanic F31.0 ; Long- term use of high-risk medication Z79.899 and LUCY (generalized anxiety disorder) F41.1 [facility] [id number] [place] [address] Nov, [facility] [id number] [place] [address] Oct, [facility] [id number] [address] Sep, Bipolar disorder in partial remission, most recent episode unspecified type F31.70 ; ADHD (attention deficit hyperactivity disorder), inattentive type F90.0 and LUCY (generalized anxiety disorder) F41.1 [place] [id number] [place] [address] Sep, [place] [id number] [place] [address] Aug, Bipolar disorder in partial remission, most recent episode unspecified type F31.70 ; Long-term use of high-risk medication Z79.899 ; ADHD (attention deficit hyperactivity disorder), inattentive type F90.0 and LUCY (generalized anxiety disorder) F41.1 [place] [id number] [place] [address] Aug, [place] [id number] [place] [address] Jul, [place] [id number] [place] [address] May, Visit for TB skin test Z11.1 [place] [id number] [place] [address] May, [place] [id number] [place] [address] Apr, Moderate mixed bipolar I disorder F31.62 and PTSD (post-traumatic stress disorder) F43.10 [place] [id number] [place] [address] Mar, [place] [id number] [place] [address] Jan, Moderate mixed bipolar I disorder F31.62 ; PTSD (post-traumatic stress disorder) F43.10 and Long-term use of high-risk medication Z79.899 [place] [id number] [place] [address] Oct, Moderate mixed bipolar I disorder F31.62 and PTSD (post-traumatic stress disorder) F43.10 [facility] [id number] [place] [address] Sep, PTSD (post-traumatic stress disorder) F43.10 and Moderate mixed bipolar I disorder F31.62 [facility] [address] [address] Sep, [facility] [id number] [place] [address] Sep, [facility] [id number] [place] [address] Aug, PTSD (post-traumatic stress disorder) F43.10 and Moderate mixed bipolar I disorder F31.62 [facility] [address] [address] Jul, [facility] [id number] [place] [address] Jul, [facility] [id number] [place] [address] Jul, PTSD (post-traumatic stress disorder) F43.10 and Moderate mixed bipolar I disorder F31.62 [facility] [address] [address] May, [facility] [address] [address] May, [facility] [id number] [address] Apr, [facility] [id number] [place] [address] Apr, [facility] [id number] [address] Apr, PTSD (post-traumatic stress disorder) F43.10 and Moderate mixed bipolar I disorder F31.62 [facility] [address] [address] 27 Mar, 2016 [facility] [id number] [address] 15 Mar, 2016 [facility] [address] [address] Mar, [facility] [address] [address] February, [facility] [address] [address] February, [facility] [address] [address] Jan, Moderate mixed bipolar I disorder F31.62 and PTSD (post-traumatic stress disorder) F43.10 [place] [address] [address] Jan, [facility] [address] [address] 24 Dec, 2015 Moderate mixed bipolar I disorder F31.62 and PTSD (post-traumatic stress disorder) F43.10 [place] [id number] [address] Dec, PTSD (post-traumatic stress disorder) F43.10 and Bipolar disorder current episode depressed F31.30 [place] [address], [place] [address] Sep, [facility] [address] [address] Sep, Moderate mixed bipolar I disorder F31.62 and PTSD (post-traumatic stress disorder) F43.10 [facility] [address] [address] Aug, PTSD (post-traumatic stress disorder) F43.10 and Moderate mixed bipolar I disorder F31.62 [facility] [address] [address] Jul, PTSD (post-traumatic stress disorder) F43.10 and Moderate mixed bipolar I disorder F31.62 [facility] [address], [place] [address] May, [facility] [id number] [address] May, Bipolar I disorder, most recent episode (or current) mixed, in partial or unspecified remission 296.65 and PTSD (post-traumatic stress disorder) 309.81 [facility] [id number] [place] [address] Apr, Bipolar I disorder, most recent episode (or current) mixed, moderate 296.62 and Posttraumatic stress disorder 309.81 [facility] [address], [place] [address] Mar, [facility] [address], [place] [address] February, [facility] [address], [place] [address] February, [facility] [address], [place] [address] Jan, [facility] [id number], [place] [address] Jan, [facility] [id number], [place] [address] Dec, [facility] [id number], [place] [address] Dec, [facility] [id number], [place] [address] Dec, [facility] [id number], [place] [address] Dec, [facility] [id number] [place] [address] Nov, [facility] [place] [facility] [address] [id number] [place] [address] Nov, 2014 [facility] [place] [facility] [address] [id number] [place] [address] Nov, [facility] [place] [facility] [address] [id number] [place] [address] Nov, [facility] [place] [facility] [address] [id number] [place] [address] Nov, [facility] [place] [facility] [address] [id number] [place] [address] Oct, [facility] [place] [facility] [address] [id number] [place] [address] Oct, [facility] [place] [facility] [address] [id number] [place] [address] Oct, [facility] [place] [facility] [address] [id number] [place] [address] Oct, [facility] [place] [facility] [address] [id number] [place] [address] Oct, [facility] [place] [facility] [address] [facility] [id number] [place] [address] Oct, [facility] [place] [facility] [address] [id number] [place] [address] Sep, [facility] [place] [facility] [address] [id number] [place] [address] Sep, [facility] [place] [facility] [address] [id number] [place] [address] Sep, [facility] [place] [facility] [address] [id number] [place] [address] Sep, [facility] [place] [facility] [address] [id number] [place] [address] Sep, [facility] [place] [facility] [address] [id number] [place] [address] Sep, [facility] [place] [facility] [address] [id number] [place] [address] Sep, [facility] [place] [facility] [address] [id number] [place] [address] Sep, [facility] [place] [facility] [address] [id number] [place] [address] Sep, [facility] [place] [facility] [address] [id number] [place] [address] Sep, [facility] [place] [facility] [address] [id number] [place] [address] Aug, [facility] [place] [facility] [address] [id number] [place] [address] Aug, [facility] [place] [facility] [address] [id number] [place] [address] Aug, [facility] [place] [facility] [address] [id number] [place] [address] Aug, [facility] [place] [facility] [address] [id number] [place] [address] Aug, [facility] [place] [facility] [address] [id number], [place] [address] Aug, [facility] [place] [facility] [address] [id number], [place] [address] Jul, [facility] [place] [facility] [address] [id number] [place] [address] Jul, [facility] [place] [facility] [address] [id number], [place] [address] Jun, [facility] [place] [facility] [address] [id number] [place] [address] Jun, [facility] [place] [facility] [address] [id number] [place] [address] Jun, [facility] [place] [facility] [address] [id number] [place] [address] Jun, [facility] [place] [facility] [address] [id number] [place] [address] Jun, [facility] [place] [facility] [address] [id number] [place] [address] Jun, [facility] [place] [facility] [address] [id number] [place] [address] May, [facility] [place] [facility] [address] [id number] [place] [address] May, [facility] [place] [facility] [address] [id number] [place] [address] May, [facility] [place] [facility] [address] [id number] [place] [address] May, [facility] [place] [facility] [address] [id number] [place] [address] February, [facility] [place] [facility] [address] [id number] [place] [address] February, [facility] [place] [facility] [address] [id number] [place] [address] Nov, [facility] [place] [facility] [address] [id number] [place] [address] Nov, [facility] [place] [facility] [address] [id number] [place] [address] Jul, [facility] [place] [facility] [address] [id number] [place] [address] Jul, [facility] [place] [facility] [address] [id number] [place] [address] Jul, [facility] [place] [facility] [address] [id number] [place] [address] Jul, [facility] [place] [facility] [address] [id number] [place] [address] May, [facility] [place] [facility] [address] [id number] [place] [address] May, [facility] [place] [facility] [address] [id number] [place] [address] February, [facility] [place] [facility] [address] [id number] [place] [address] Dec, [facility] [address] [id number] [place] [address] Dec, [facility] [place] [facility] [address] [id number] [place] [address] Dec, [facility] [address] [id number] [place] [address] Nov, [facility] [address] [id number] [place] [address] Oct, [facility] [address] [id number] [place] [address] Sep, [facility] [address] [id number] [place] [address] Sep, [facility] [address] [id number] [place] [address] Aug, [facility] [place] [facility] [address] [id number], [place] [address] Aug, [facility] [place] [facility] [address] [id number] [place] [address] Jul, [facility] [place] [facility] [address] [id number] [place] [address] Jul, [facility] [place] [facility] [address] [id number] [place] [address] Jul, [facility] [place] [facility] [address] [id number], [place] [address] Apr, [facility] [address] [id number] [place] [address] Apr, [facility] [place] [facility] [address] [id number] [place] [address] Mar, [facility] [place] [facility] [address] [facility] [id number] [place] [address] February, [facility] [place] [facility] [address] [id number] [place] [address] Jan, [facility] [address] [id number] [place] [address] Jan, [facility] [place] [facility] [address] [facility] [id number] [place] [address] Dec, [facility] [id number] [place] [address] Nov, [facility] [place] [facility] [address] [facility] [id number] [place] [address] Nov, [facility] [id number] [place] [address] Sep, [facility] [place] [facility] [address] [facility] [id number] [place] [address] Aug, [facility] [address] [facility] [id number], [place] [address] Jul, [facility] [place] [facility] [address] [id number], [place] [address] Sep, [facility] [place] [facility] [address] [id number] [place] [address] Sep, [facility] [place] [facility] [address] [facility] [id number] [place] [address] Aug, [facility] [place] [facility] [id number] [place] [address] Aug, [facility] [place] [facility] [address] [facility] [id number] [place] [address] Jul, IMMUNIZATIONS No Known Immunizations SOCIAL HISTORY Never Assessed REASON FOR VISIT f/u Karley PLAN OF CARE Activity Details Follow Up 3 Months Reason: VITAL SIGNS Height 60 in 2018-04-17 Weight 152.6 lbs 2018-04-17 Heart Rate 116 bpm 2018-04-17 Respiratory Rate 20 2018-04-17 BMI 29.80 kg/m2 2018-04-17 Blood pressure systolic 86 mmHg 2018-04-17 Blood pressure diastolic 54 mmHg 2018-04-17 MEDICATIONS Medication Instructions Dosage Frequency Start Date End Date Duration Status Latuda 60MG TAKE ONE TABLET BY MOUTH IN THE EVENING WITH 350KCAL Active Trazodone HCl 100MG TAKE TWO TABLETS BY MOUTH AT BEDTIME FOR SLEEP Active midodrine 10 mg 1 Tablet by Oral route 3 times per day Aug, Active Atomoxetine HCl 25 MG Orally Twice a day for ADHD 1 capsule Aug, Active Multi Complete Not-Taking Clonazepam 1MG Orally twice a day for anxiety. Must last 30 days. 1 tablet 30 days Active Fetzima 40MG TAKE ONE CAPSULE BY MOUTH ONCE DAILY Active Natazia 3/2-2/2-3/1 MG Orally Once a day 1 tablet 24h Active Oxybutynin Chloride ER 10 MG Orally Once a day 1 tablet 24h Active Vitamin D 5000 UNIT Orally Once a day 1 tablet 24h Active Topamax 100 mg Orally Twice a day 1 tablet 12h Active Nicorette Active Loxapine Succinate 10 mg Orally at bedtime for sleep 1 or 2 capsule Active RESULTS Name Result Date Reference Range URINE DRUG SCREEN (IN HOUSE) 2018-04-17 Lot # [id number] Exp date 06/2019 Control + COCAINE POSITIVE AMPH Negative MTD Negative THC Negative OPIATE Negative BENZO Negative PCP Negative BAR Negative OXY Negative MAMP Negative BUP Negative MDMA Negative TCA PROCEDURES Procedure Date Ordered Result Body Site [facility] VISIT ESTABLISHED PATIENT April 17, 2018 DRUG TEST PRSMV DIR OPT OBS April 17, 2018 INSTRUCTIONS MEDICATIONS ADMINISTERED No Known Medications [...]
--- OUTSIDE RECORDS SUMMARY | 2019-04-20 14:03 | XMS REPORT ---
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 Name Role Phone MILTON ANIRUDH Unavailable PROBLEMS Type Condition ICD9-CM Code BIR77-CZ Code Onset Dates Condition Status SNOMED Code Problem Bipolar disorder current episode depressed F31.30 Active 298848358 Problem Long-term use of high-risk medication Z79.899 Active 043462574 Problem Bipolar disorder, current episode mixed, severe, without psychotic features F31.63 Active 692141556 Problem Bipolar affective disorder, currently depressed, mild F31.31 Active 989681522 Problem Cocaine use F14.90 Active 774993193 Problem ADHD (attention deficit hyperactivity disorder), inattentive type F90.0 Active 60169742 Problem LUCY (generalized anxiety disorder) F41.1 Active 45269367 Problem Bipolar affective disorder, current episode hypomanic F31.0 Active 93577606 Problem Bipolar disorder in partial remission, most recent episode unspecified type F31.70 Active 328385172 Problem Other and unspecified bipolar disorders 296.89 Active 96272725 Problem Unspecified anemia 285.9 Active 175031960 Problem Major depressive disorder, recurrent episode, moderate 296.32 Active 83112084 Problem Nondependent cocaine abuse, unspecified 305.60 Active 601170021 Problem Moderate mixed bipolar I disorder F31.62 Active 76452356 ALLERGIES No Information ENCOUNTERS Encounter Location Date Diagnosis [facility] [address] [facility] [id number] [address] Jul, [facility] [id number] [address] May, [facility] [id number] [address] May, [facility] [id number] [address] Apr, Bipolar affective disorder, currently depressed, mild F31.31 ; Cocaine use F14.90 ; LUCY (generalized anxiety disorder) F41.1 ; Long-term use of high- risk medication Z79.899 and ADHD (attention deficit hyperactivity disorder), inattentive type F90.0 [facility] [address] [address] Apr, [facility] [id number] [place] [address] Apr, Bipolar affective disorder, current episode hypomanic F31.0 ; LUCY (generalized anxiety disorder) F41.1 ; ADHD (attention deficit hyperactivity disorder), inattentive type F90.0 and Encounter for drug screening Z02.83 [place] [id number] [place] [address] Apr, [place] [id number] [place] [address] Jan, [facility] [id number] [place] [address] Dec, [place] [id number] [place] [address] Dec, Bipolar affective disorder, current episode hypomanic F31.0 ; Long- term use of high-risk medication Z79.899 and LUCY (generalized anxiety disorder) F41.1 [place] [id number] [place] [address] Nov, [facility] [id number] [place] [address] Oct, [place] [id number] [place] [address] Sep, Bipolar disorder in partial remission, most recent episode unspecified type F31.70 ; ADHD (attention deficit hyperactivity disorder), inattentive type F90.0 and LUCY (generalized anxiety disorder) F41.1 [place] [address] [address] Sep, [place] [id number] [place] [address] Aug, Bipolar disorder in partial remission, most recent episode unspecified type F31.70 ; Long-term use of high-risk medication Z79.899 ; ADHD (attention deficit hyperactivity disorder), inattentive type F90.0 and LUCY (generalized anxiety disorder) F41.1 [place] [id number] [place] [address] Aug, [place] [id number] [place] [address] Jul, [place] [id number] [place] [address] May, Visit for TB skin test Z11.1 [place] [id number] [place] [address] May, [place] [id number] [place] [address] Apr, Moderate mixed bipolar I disorder F31.62 and PTSD (post-traumatic stress disorder) F43.10 [place] [address] [address] Mar, [place] [id number] [place] [address] Jan, Moderate mixed bipolar I disorder F31.62 ; PTSD (post-traumatic stress disorder) F43.10 and Long-term use of high-risk medication Z79.899 [place] [id number] [place] [address] Oct, Moderate mixed bipolar I disorder F31.62 and PTSD (post-traumatic stress disorder) F43.10 [place] [address] [address] Sep, PTSD (post-traumatic stress disorder) F43.10 and Moderate mixed bipolar I disorder F31.62 [facility] [address] [facility] [id number] [place] [address] Sep, [facility] [address] [facility] [id number] [place] [address] Sep, [facility] [address] [facility] [id number] [place] [address] Aug, PTSD (post-traumatic stress disorder) F43.10 and Moderate mixed bipolar I disorder F31.62 [facility] [address] [facility] [id number] [place] [address] Jul, [facility] [address] [facility] [id number] [place] [address], [place] [address] Jul, [facility] [id number] [address] Jul, PTSD (post-traumatic stress disorder) F43.10 and Moderate mixed bipolar I disorder F31.62 [facility] [address] [facility] [id number] [place] [address] May, [facility] [address] [facility] [id number] [place] [address] May, [facility] [id number] [address] Apr, [facility] [id number] [address] Apr, [facility] [address] [facility] [id number] [place] [address] Apr, PTSD (post-traumatic stress disorder) F43.10 and Moderate mixed bipolar I disorder F31.62 [facility] [address] [facility] [id number] [place] [address] Mar, [facility] [address] [facility] [id number] [place] [address] Mar, [facility] [address] [address] Mar, [facility] [address] [address] February, [facility] [address] [address] February, [facility] [id number] [place] [address] Jan, Moderate mixed bipolar I disorder F31.62 and PTSD (post-traumatic stress disorder) F43.10 [place] [address] [address] Jan, [facility] [id number] [place] [address] 24 Dec, 2015 Moderate mixed bipolar I disorder F31.62 and PTSD (post-traumatic stress disorder) F43.10 [place] [address] [address] Dec, PTSD (post-traumatic stress disorder) F43.10 and Bipolar disorder current episode depressed F31.30 [place] [address] [address] Sep, [place] [address] [address] Sep, Moderate mixed bipolar I disorder F31.62 and PTSD (post-traumatic stress disorder) F43.10 [place] [address] [address] Aug, PTSD (post-traumatic stress disorder) F43.10 and Moderate mixed bipolar I disorder F31.62 [place] [address] [address] 08 Jul, 2015 PTSD (post-traumatic stress disorder) F43.10 and Moderate mixed bipolar I disorder F31.62 [place] [address] [place] [address] May, [facility] [address] [facility] [id number] [place] [address] May, Bipolar I disorder, most recent episode (or current) mixed, in partial or unspecified remission 296.65 and PTSD (post-traumatic stress disorder) 309.81 [facility] [address] [id number] [address] Apr, Bipolar I disorder, most recent episode (or current) mixed, moderate 296.62 and Posttraumatic stress disorder 309.81 [facility] [address] [facility] [id number] [place] [address] Mar, [facility] [id number] [place] [address] February, [facility] [address] [id number] [address] February, [facility] [address] [id number] [address] Jan, [facility] [address] [address] Jan, [facility] [address] [address] Dec, [facility] [address] [address] Dec, [facility] [id number] [address] Dec, [facility] [id number] [address] Dec, [facility] [address] [id number] [address] Nov, [facility] [address] [address] Nov, [facility] [id number] [place] [place] [address] Nov, [facility] [address] [id number] [place] [address] Nov, [facility] [place] [facility] [address] [id number] [place] [address] Nov, [facility] [address] [id number] [place] [address] Oct, [facility] [place] [facility] [address] [id number] [place] [address] Oct, [facility] [address] [id number] [place] [address] Oct, [facility] [address] [id number] [place] [address] Oct, [facility] [address] [facility] [id number] [place] [address] Oct, [facility] [address] [id number] [place] [address] Oct, [facility] [address] [id number] [place] [address] Sep, [facility] [address] [id number] [place] [address] Sep, [facility] [place] [facility] [address] [id number] [place] [address] Sep, [facility] [place] [facility] [address] [id number] [place] [address] Sep, [facility] [place] [facility] [address] [id number] [place] [address] Sep, [facility] [place] [facility] [address] [id number] [place] [address] Sep, [facility] [place] [facility] [address] [id number] [place] [address] Sep, [facility] [place] [facility] [address] [id number] [place] [address] Sep, [facility] [place] [facility] [address] [id number] [place] [address] Sep, [facility] [place] [facility] [address] [id number] [place] [address] Sep, [facility] [place] [facility] [address] [id number] [place] [address] Aug, [facility] [place] [facility] [address] [id number] [place] [address] Aug, [facility] [place] [facility] [address] [id number] [place] [address] Aug, [facility] [place] [facility] [address] [id number] [place] [address] Aug, [facility] [place] [facility] [address] [id number] [place] [address] Aug, [facility] [place] [facility] [address] [id number] [place] [address] Aug, [facility] [place] [facility] [address] [id number] [place] [address] Jul, [facility] [place] [facility] [address] [id number] [place] [address] Jul, [facility] [place] [facility] [address] [id number] [place] [address] Jun, [facility] [place] [facility] [address] [id number] [place] [address] Jun, [facility] [place] [facility] [address] [id number] [place] [address] Jun, [facility] [place] [facility] [address] [id number] [place] [address] Jun, [facility] [place] [facility] [address] [id number] [place] [address] Jun, [facility] [place] [facility] [address] [id number] [place] [address] Jun, [facility] [place] [facility] [address] [id number] [place] [address] May, [facility] [place] [facility] [address] [id number] [place] [address] May, [facility] [place] [facility] [address] [id number] [place] [address] May, [facility] [place] [facility] [address] [id number] [place] [address] May, [facility] [place] [facility] [address] [id number] [place] [address] February, [facility] [place] [facility] [address] [id number] [place] [address] February, [facility] [place] [facility] [address] [id number] [place] [address] Nov, [facility] [place] [facility] [address] [id number] [place] [address] Nov, [facility] [place] [facility] [address] [id number] [place] [address] Jul, [facility] [place] [facility] [address] [id number] [place] [address] Jul, [facility] [place] [facility] [address] [id number] [place] [address] Jul, [facility] [place] [facility] [address] [id number] [place] [address] Jul, [facility] [place] [facility] [address] [id number] [place] [address] May, [facility] [place] [facility] [address] [id number] [place] [address] May, [facility] [place] [facility] [address] [id number] [place] [address] February, [facility] [place] [facility] [address] [id number] [place] [address] Dec, [facility] [place] [facility] [address] [id number] [place] [address] Dec, [facility] [place] [facility] [address] [id number] [place] [address] Dec, [facility] [place] [facility] [address] [id number] [place] [address] Nov, [facility] [place] [facility] [address] [id number] [place] [address] Oct, [facility] [place] [facility] [address] [id number] [place] [address] Sep, [facility] [place] [facility] [address] [id number] [place] [address] Sep, [facility] [place] [facility] [address] [id number] [place] [address] Aug, [facility] [place] [facility] [address] [id number] [place] [address] Aug, [facility] [place] [facility] [address] [id number] [place] [address] Jul, [facility] [place] [facility] [address] [id number] [place] [address] Jul, [facility] [place] [facility] [address] [id number] [place] [address] Jul, [facility] [place] [facility] [address] [id number] [place] [address] Apr, [facility] [place] [facility] [address] [id number] [place] [address] Apr, [facility] [place] [facility] [address] [id number] [place] [address] Mar, [facility] [address] [address] February, [facility] [id number] [place] [address] Jan, [facility] [address] [address] Jan, [facility] [id number] [place] [address] Dec, [facility] [address] [address] Nov, [facility] [id number] [place] [address] Nov, [facility] [id number] [place] [address] Sep, [facility] [id number] [place] [address] Aug, [facility] [id number] [place] [address] Jul, [facility] [id number] [place] [address] Sep, [facility] [address] [address] Sep, [facility] [address] [address] Aug, [facility] [address] [address] Aug, [facility] [address] [address] Jul, IMMUNIZATIONS No Known Immunizations SOCIAL HISTORY Never Assessed REASON FOR VISIT UDS results PLAN OF CARE VITAL SIGNS MEDICATIONS Unknown [...]
--- OUTSIDE RECORDS SUMMARY | 2019-04-20 14:04 | XMS REPORT ---
Author Author MILTON ANIRUDH Organization [facility] Address [address] [place] [address] Care Team Providers Care Evp Strategy Name Role Phone MILTON ANIRUDH Unavailable PROBLEMS Type Condition ICD9-CM Code UDM70-BO Code Onset Dates Condition Status SNOMED Code Problem Bipolar disorder current episode depressed F31.30 Active 453483530 Problem Long-term use of high-risk medication Z79.899 Active 649515976 Problem Bipolar disorder, current episode mixed, severe, without psychotic features F31.63 Active 165325852 Problem Bipolar affective disorder, currently depressed, mild F31.31 Active 723296200 Problem Cocaine use F14.90 Active 797796357 Problem ADHD (attention deficit hyperactivity disorder), inattentive type F90.0 Active 69756162 Problem LUCY (generalized anxiety disorder) F41.1 Active 94571654 Problem Bipolar affective disorder, current episode hypomanic F31.0 Active 86238468 Problem Bipolar disorder in partial remission, most recent episode unspecified type F31.70 Active 868523242 Problem Other and unspecified bipolar disorders 296.89 Active 81694134 Problem Unspecified anemia 285.9 Active 610168013 Problem Major depressive disorder, recurrent episode, moderate 296.32 Active 46146600 Problem Nondependent cocaine abuse, unspecified 305.60 Active 272761386 Problem Moderate mixed bipolar I disorder F31.62 Active 61584319 ALLERGIES No Information ENCOUNTERS Encounter Location Date Diagnosis [facility] [address] [facility] [id number] [address] Jul, [facility] [address] [facility] [id number] [place] [address] Apr, Bipolar affective disorder, currently depressed, mild F31.31 ; Cocaine use F14.90 ; LUCY (generalized anxiety disorder) F41.1 ; Long-term use of high- risk medication Z79.899 and ADHD (attention deficit hyperactivity disorder), inattentive type F90.0 [facility] [id number] [address] Apr, [facility] [address] [address] Apr, Bipolar affective disorder, current episode hypomanic F31.0 ; LUCY (generalized anxiety disorder) F41.1 ; ADHD (attention deficit hyperactivity disorder), inattentive type F90.0 and Encounter for drug screening Z02.83 [facility] [address] [address] Apr, [facility] [address] [address] Jan, [facility] [address] [address] Dec, [facility] [id number] [place] [address] Dec, Bipolar affective disorder, current episode hypomanic F31.0 ; Long- term use of high-risk medication Z79.899 and LUCY (generalized anxiety disorder) F41.1 [facility] [address] [address] Nov, [facility] [address] [address] Oct, [facility] [address] [address] Sep, Bipolar disorder in partial remission, most recent episode unspecified type F31.70 ; ADHD (attention deficit hyperactivity disorder), inattentive type F90.0 and LUCY (generalized anxiety disorder) F41.1 [facility] [address] [address] Sep, [facility] [id number] [address] Aug, Bipolar disorder in partial remission, most recent episode unspecified type F31.70 ; Long-term use of high-risk medication Z79.899 ; ADHD (attention deficit hyperactivity disorder), inattentive type F90.0 and LUCY (generalized anxiety disorder) F41.1 [address] [address] Aug, [facility] [id number] [place] [address] Jul, [place] [id number] [place] [address] May, Visit for TB skin test Z11.1 [place] [id number] [place] [address] May, [place] [id number] [place] [address] Apr, Moderate mixed bipolar I disorder F31.62 and PTSD (post-traumatic stress disorder) F43.10 [place] [address] [address] Mar, [place] [id number] [place] [address] Jan, Moderate mixed bipolar I disorder F31.62 ; PTSD (post-traumatic stress disorder) F43.10 and Long-term use of high-risk medication Z79.899 [place] [id number] [place] [address] Oct, Moderate mixed bipolar I disorder F31.62 and PTSD (post-traumatic stress disorder) F43.10 [place] [id number] [place] [address] Sep, PTSD (post-traumatic stress disorder) F43.10 and Moderate mixed bipolar I disorder F31.62 [place] [address] [address] Sep, [place] [id number] [place] [address] Sep, [facility] [address] [facility] [id number] [address] Aug, PTSD (post-traumatic stress disorder) F43.10 and Moderate mixed bipolar I disorder F31.62 [facility] [address] [facility] [id number] [place] [address] Jul, [facility] [id number] [place] [address] Jul, [facility] [id number] [address] Jul, PTSD (post-traumatic stress disorder) F43.10 and Moderate mixed bipolar I disorder F31.62 [facility] [id number] [address] May, [facility] [id number] [address] May, [facility] [id number] [address] Apr, [facility] [id number] [address] Apr, [facility] [id number] [address] Apr, PTSD (post-traumatic stress disorder) F43.10 and Moderate mixed bipolar I disorder F31.62 [facility] [address] [facility] [id number] [place] [address] Mar, [facility] [address] [facility] [id number] [place] [address] Mar, [facility] [address] [facility] [id number] [place] [address] Mar, [facility] [id number] [address] February, [facility] [address] [address] February, [facility] [id number] [place] [address] Jan, Moderate mixed bipolar I disorder F31.62 and PTSD (post-traumatic stress disorder) F43.10 [place] [address] [place] [address] Jan, [facility] [id number] [place] [address] Dec, Moderate mixed bipolar I disorder F31.62 and PTSD (post-traumatic stress disorder) F43.10 [place] [id number] [place] [address] Dec, PTSD (post-traumatic stress disorder) F43.10 and Bipolar disorder current episode depressed F31.30 [place] [id number] [place] [address] Sep, [place] [id number] [place] [address] Sep, Moderate mixed bipolar I disorder F31.62 and PTSD (post-traumatic stress disorder) F43.10 [place] [address] [place] [address] Aug, PTSD (post-traumatic stress disorder) F43.10 and Moderate mixed bipolar I disorder F31.62 [place] [address] [place] [address] Jul, PTSD (post-traumatic stress disorder) F43.10 and Moderate mixed bipolar I disorder F31.62 [place] [id number] [place] [address] May, [place] [id number] [place] [address] May, Bipolar I disorder, most recent episode (or current) mixed, in partial or unspecified remission 296.65 and PTSD (post-traumatic stress disorder) 309.81 [facility] [address] [address] Apr, Bipolar I disorder, most recent episode (or current) mixed, moderate 296.62 and Posttraumatic stress disorder 309.81 [facility] [address] [address] Mar, [facility] [id number] [place] [address] February, [facility] [address] [address] February, [facility] [id number] [place] [address] Jan, [facility] [id number] [address] Jan, [facility] [id number] [place] [address] Dec, [facility] [address] [address] Dec, [facility] [address] [address] Dec, [facility] [address] [address] Dec, [facility] [address] [address] Nov, [facility] [address] [address] Nov, [facility] [address] [address] Nov, [facility] [address] [address] Nov, [facility] [id number] [place] [address] Nov, [facility] [address] [id number] [place] [address] Oct, [facility] [place] [facility] [address] [id number] [place] [address] Oct, [facility] [address] [id number] [place] [address] Oct, [facility] [place] [facility] [address] [id number] [place] [address] Oct, [facility] [address] [id number] [place] [address] Oct, [facility] [address] [id number] [place] [address] Oct, [facility] [address] [id number] [place] [address] Sep, [facility] [address] [id number] [place] [address] Sep, [facility] [address] [id number] [place] [address] Sep, [facility] [address] [id number] [place] [address] Sep, [facility] [place] [facility] [address] [id number] [place] [address] Sep, [facility] [place] [facility] [address] [id number] [place] [address] Sep, [facility] [place] [facility] [address] [id number] [place] [address] Sep, [facility] [place] [facility] [address] [id number] [place] [address] Sep, [facility] [place] [facility] [address] [id number] [place] [address] Sep, [facility] [place] [facility] [address] [id number] [place] [address] Sep, [facility] [place] [facility] [address] [id number] [place] [address] Aug, [facility] [place] [facility] [address] [id number] [place] [address] Aug, [facility] [place] [facility] [address] [id number] [place] [address] Aug, [facility] [place] [facility] [address] [id number] [place] [address] Aug, [facility] [place] [facility] [address] [id number] [place] [address] Aug, [facility] [place] [facility] [address] [id number] [place] [address] Aug, [facility] [place] [facility] [address] [id number] [place] [address] Jul, [facility] [place] [facility] [address] [id number] [place] [address] Jul, [facility] [place] [facility] [address] [id number] [place] [address] Jun, [facility] [place] [facility] [address] [id number] [place] [address] Jun, [facility] [place] [facility] [address] [id number] [place] [address] Jun, [facility] [place] [facility] [address] [id number] [place] [address] Jun, [facility] [place] [facility] [address] [id number] [place] [address] Jun, [facility] [place] [facility] [address] [id number] [place] [address] Jun, [facility] [place] [facility] [address] [id number] [place] [address] May, [facility] [place] [facility] [address] [id number] [place] [address] May, [facility] [place] [facility] [address] [id number] [place] [address] May, [facility] [place] [facility] [address] [id number] [place] [address] May, [facility] [place] [facility] [address] [id number] [place] [address] February, [facility] [place] [facility] [address] [id number] [place] [address] February, [facility] [place] [facility] [address] [id number] [place] [address] Nov, [facility] [place] [facility] [address] [id number] [place] [address] Nov, [facility] [place] [facility] [address] [id number] [place] [address] Jul, [facility] [place] [facility] [address] [id number] [place] [address] Jul, [facility] [place] [facility] [address] [id number] [place] [address] Jul, [facility] [place] [facility] [address] [id number] [place] [address] Jul, [facility] [place] [facility] [address] [id number] [place] [address] May, [facility] [place] [facility] [address] [id number] [place] [address] May, [facility] [place] [facility] [address] [id number] [place] [address] February, [facility] [place] [facility] [address] [id number] [place] [address] Dec, [facility] [place] [facility] [address] [id number] [place] [address] Dec, [facility] [place] [facility] [address] [id number] [place] [address] Dec, [facility] [place] [facility] [address] [id number] [place] [address] Nov, [facility] [place] [facility] [address] [id number] [place] [address] Oct, [facility] [place] [facility] [address] [id number] [place] [address] Sep, [facility] [place] [facility] [address] [id number] [place] [address] Sep, [facility] [place] [facility] [address] [id number] [place] [address] Aug, [facility] [place] [facility] [address] [id number] [place] [address] Aug, [facility] [place] [facility] [address] [id number] [place] [address] Jul, [facility] [place] [facility] [address] [id number] [place] [address] Jul, [facility] [place] [facility] [address] [id number] [place] [address] Jul, [facility] [place] [facility] [address] [id number] [place] [address] Apr, [facility] [place] [facility] [address] [id number] [place] [address] Apr, [facility] [place] [facility] [address] [id number] [place] [address] Mar, [facility] [place] [facility] [address] [id number] [place] [address] February, [facility] [place] [facility] [address] [id number] [place] [address] Jan, [facility] [address] [address] Jan, [facility] [address] [address] Dec, [facility] [address] [address] Nov, [facility] [id number] [place] [address] Nov, [facility] [id number] [place] [address] Sep, [facility] [id number] [place] [address] Aug, [facility] [id number] [place] [address] Jul, [facility] [id number] [place] [address] Sep, [facility] [id number] [place] [address] Sep, [facility] [address] [address] Aug, [facility] [address] [address] Aug, [facility] [address] [address] Jul, IMMUNIZATIONS No Known Immunizations SOCIAL HISTORY Never Assessed REASON FOR VISIT connor refill PLAN OF CARE VITAL SIGNS MEDICATIONS Medication Instructions Dosage Frequency Start Date End Date Duration Status Clonazepam 1MG Orally 1 tab in the AM and 2 tabs at HS 1 tablet 30 days Active RESULTS No [...]
--- OUTSIDE RECORDS SUMMARY | 2019-04-20 14:04 | XMS REPORT ---
Author Author MILTON ANIRUDH [facility] Address [address] [place] [address] Care Team Providers Care Unload Associate Name Role Phone MILTON ANIRUDH Unavailable PROBLEMS Type Condition ICD9-CM Code [id number] Code Onset Dates Condition Status SNOMED Code Problem Bipolar disorder current episode depressed F31.30 Active 536253152 Problem Long-term use of high-risk medication Z79.899 Active 031090986 Problem Bipolar disorder, current episode mixed, severe, without psychotic features F31.63 Active 222794282 Problem Bipolar affective disorder, currently depressed, mild F31.31 Active 631729987 Problem Cocaine use F14.90 Active 811343570 Problem ADHD (attention deficit hyperactivity disorder), inattentive type F90.0 Active 80925271 Problem LUCY (generalized anxiety disorder) F41.1 Active 50528514 Problem Bipolar affective disorder, current episode hypomanic F31.0 Active 67076513 Problem Bipolar disorder in partial remission, most recent episode unspecified type F31.70 Active 862055216 Problem Other and unspecified bipolar disorders 296.89 Active 94780392 Problem Unspecified anemia 285.9 Active 215129638 Problem Major depressive disorder, recurrent episode, moderate 296.32 Active 14842250 Problem Nondependent cocaine abuse, unspecified 305.60 Active 317221210 Problem Moderate mixed bipolar I disorder F31.62 Active 23955953 ALLERGIES No Information ENCOUNTERS Encounter Location Date Diagnosis [facility] [address] [facility] [id number], [place] [address] Jul, [facility] [address] [id number], [place] [address] May, [facility] [address] [id number], [place] [address] May, [facility] [address] [id number] [address] Apr, Bipolar affective disorder, currently depressed, mild F31.31 ; Cocaine use F14.90 ; LUCY (generalized anxiety disorder) F41.1 ; Long-term use of high- risk medication Z79.899 and ADHD (attention deficit hyperactivity disorder), inattentive type F90.0 [facility] [address], [place] [address] Apr, [facility] [id number] [place] [address] Apr, Bipolar affective disorder, current episode hypomanic F31.0 ; LUCY (generalized anxiety disorder) F41.1 ; ADHD (attention deficit hyperactivity disorder), inattentive type F90.0 and Encounter for drug screening Z02.83 [id number] [place] [address] Apr, [place] [id number] [place] [address] Jan, [facility] [id number] [place] [address] Dec, [place] [id number] [place] [address] Dec, Bipolar affective disorder, current episode hypomanic F31.0 ; Long- term use of high-risk medication Z79.899 and LUCY (generalized anxiety disorder) F41.1 [place] [id number] [place] [address] Nov, [facility] [id number] [place] [address] Oct, [place] [id number] [place] [address] Sep, Bipolar disorder in partial remission, most recent episode unspecified type F31.70 ; ADHD (attention deficit hyperactivity disorder), inattentive type F90.0 and LUCY (generalized anxiety disorder) F41.1 [place] [address], [place] [address] Sep, [place] [id number] [place] [address] Aug, Bipolar disorder in partial remission, most recent episode unspecified type F31.70 ; Long-term use of high-risk medication Z79.899 ; ADHD (attention deficit hyperactivity disorder), inattentive type F90.0 and LUCY (generalized anxiety disorder) F41.1 [place] [id number] [place] [address] Aug, [place] [id number] [place] [address] Jul, [place] [id number] [place] [address] May, Visit for TB skin test Z11.1 [place] [id number] [place] [address] May, [place] [id number] [place] [address] Apr, Moderate mixed bipolar I disorder F31.62 and PTSD (post-traumatic stress disorder) F43.10 [place] [address], [place] [address] Mar, [place] [id number] [place] [address] Jan, Moderate mixed bipolar I disorder F31.62 ; PTSD (post-traumatic stress disorder) F43.10 and Long-term use of high-risk medication Z79.899 [place] [id number] [place] [address] Oct, Moderate mixed bipolar I disorder F31.62 and PTSD (post-traumatic stress disorder) F43.10 [place] [address], [place] [address] Sep, PTSD (post-traumatic stress disorder) F43.10 and Moderate mixed bipolar I disorder F31.62 [facility] [address] [facility] [id number] [place] [address] Sep, [facility] [address] [facility] [id number] [place] [address] Sep, [facility] [address] [facility] [id number] [place] [address] Aug, PTSD (post-traumatic stress disorder) F43.10 and Moderate mixed bipolar I disorder F31.62 [facility] [address] [facility] [id number] [place] [address] Jul, [facility] [address] [facility] [id number] [place] [address], [place] [address] Jul, [facility] [id number] [place] [address] Jul, PTSD (post-traumatic stress disorder) F43.10 and Moderate mixed bipolar I disorder F31.62 [facility] [address] [facility] [id number], [place] [address] May, [facility] [address] [facility] [id number], [place] [address] May, [facility] [id number], [place] [address] Apr, [facility] [id number], [place] [address] Apr, [facility] [address] [facility] [id number], [place] [address] Apr, PTSD (post-traumatic stress disorder) F43.10 and Moderate mixed bipolar I disorder F31.62 [facility] [address] [facility] [id number] [place] [address] Mar, [facility] [address] [facility] [id number], [place] [address] Mar, [facility] [address], [place] [address] Mar, [facility] [address], [place] [address] February, [facility] [address], [place] [address] February, [facility] [address] [place] [address] Jan, Moderate mixed bipolar I disorder F31.62 and PTSD (post-traumatic stress disorder) F43.10 [place] [address], [place] [address] Jan, [facility] [address] [place] [address] 24 Dec, 2015 Moderate mixed bipolar I disorder F31.62 and PTSD (post-traumatic stress disorder) F43.10 [place] [address], [place] [address] Dec, PTSD (post-traumatic stress disorder) F43.10 and Bipolar disorder current episode depressed F31.30 [place] [address], [place] [address] Sep, [place] [address], [place] [address] Sep, Moderate mixed bipolar I disorder F31.62 and PTSD (post-traumatic stress disorder) F43.10 [place] [address], [place] [address] Aug, PTSD (post-traumatic stress disorder) F43.10 and Moderate mixed bipolar I disorder F31.62 [place] [address], [place] [address] 08 Jul, 2015 PTSD (post-traumatic stress disorder) F43.10 and Moderate mixed bipolar I disorder F31.62 [place] [address] [place] [address] May, [facility] [address] [facility] [id number], [place] [address] May, Bipolar I disorder, most recent episode (or current) mixed, in partial or unspecified remission 296.65 and PTSD (post-traumatic stress disorder) 309.81 [facility] [id number], [place] [address] Apr, Bipolar I disorder, most recent episode (or current) mixed, moderate 296.62 and Posttraumatic stress disorder 309.81 [facility] [address] [facility] [id number], [place] [address] Mar, [facility] [id number] [place] [address] February, [facility] [id number], [place] [address] February, [facility] [id number], [place] [address] Jan, [facility] [address], [place] [address] Jan, [facility] [address], [place] [address] Dec, [facility] [address], [place] [address] Dec, [facility] [id number], [place] [address] Dec, [facility] [id number], [place] [address] Dec, [facility] [id number], [place] [address] Nov, [facility] [address], [place] [address] Nov, [facility] [id number] [address] Nov, [facility] [address] [id number] [place] [address] Nov, [facility] [place] [facility] [address] [id number] [place] [address] Nov, [facility] [address] [id number] [place] [address] Oct, [facility] [place] [facility] [address] [id number] [place] [address] Oct, [facility] [address] [id number] [place] [address] Oct, [facility] [address] [id number] [place] [address] Oct, [facility] [address] [facility] [id number] [place] [address] Oct, [facility] [address] [id number] [place] [address] Oct, [facility] [address] [id number] [place] [address] Sep, [facility] [address] [id number] [place] [address] Sep, [facility] [place] [facility] [address] [id number] [place] [address] Sep, [facility] [place] [facility] [address] [id number] [place] [address] Sep, [facility] [place] [facility] [address] [id number] [place] [address] Sep, [facility] [place] [facility] [address] [id number] [place] [address] Sep, [facility] [place] [facility] [address] [id number] [place] [address] Sep, [facility] [place] [facility] [address] [id number] [place] [address] Sep, [facility] [place] [facility] [address] [id number] [place] [address] Sep, [facility] [place] [facility] [address] [id number] [place] [address] Sep, [facility] [place] [facility] [address] [id number] [place] [address] Aug, [facility] [place] [facility] [address] [id number] [place] [address] Aug, [facility] [place] [facility] [address] [id number] [place] [address] Aug, [facility] [place] [facility] [address] [id number] [place] [address] Aug, [facility] [place] [facility] [address] [id number], [place] [address] Aug, [facility] [place] [facility] [address] [id number] [place] [address] Aug, [facility] [place] [facility] [address] [id number], [place] [address] Jul, [facility] [place] [facility] [address] [id number], [place] [address] Jul, [facility] [place] [facility] [address] [id number], [place] [address] Jun, [facility] [place] [facility] [address] [id number] [place] [address] Jun, [facility] [place] [facility] [address] [id number], [place] [address] Jun, [facility] [place] [facility] [address] [id number], [place] [address] Jun, [facility] [place] [facility] [address] [id number], [place] [address] Jun, [facility] [place] [facility] [address] [id number] [place] [address] Jun, [facility] [place] [facility] [address] [id number] [place] [address] May, [facility] [place] [facility] [address] [id number] [place] [address] May, [facility] [place] [facility] [address] [id number] [place] [address] May, [facility] [place] [facility] [address] [id number] [place] [address] May, [facility] [place] [facility] [address] [id number] [place] [address] February, [facility] [place] [facility] [address] [id number] [place] [address] February, [facility] [place] [facility] [address] [id number] [place] [address] Nov, [facility] [place] [facility] [address] [id number] [place] [address] Nov, [facility] [place] [facility] [address] [id number] [place] [address] Jul, [facility] [place] [facility] [address] [id number] [place] [address] Jul, [facility] [place] [facility] [address] [id number] [place] [address] Jul, [facility] [place] [facility] [address] [id number] [place] [address] Jul, [facility] [place] [facility] [address] [id number] [place] [address] May, [facility] [place] [facility] [address] [id number] [place] [address] May, [facility] [place] [facility] [address] [id number] [place] [address] February, [facility] [place] [facility] [address] [id number] [place] [address] Dec, [facility] [place] [facility] [address] [id number] [place] [address] Dec, [facility] [place] [facility] [address] [id number] [place] [address] Dec, [facility] [place] [facility] [address] [id number] [place] [address] Nov, [facility] [place] [facility] [address] [id number] [place] [address] Oct, [facility] [place] [facility] [address] [id number] [place] [address] Sep, [facility] [place] [facility] [address] [id number] [place] [address] Sep, [facility] [place] [facility] [address] [id number] [place] [address] Aug, [facility] [place] [facility] [address] [id number] [place] [address] Aug, [facility] [place] [facility] [address] [id number] [place] [address] Jul, [facility] [place] [facility] [address] [id number] [place] [address] Jul, [facility] [place] [facility] [address] [id number] [place] [address] Jul, [facility] [place] [facility] [address] [id number] [place] [address] Apr, [facility] [place] [facility] [address] [id number] [place] [address] Apr, [facility] [place] [facility] [address] [id number] [place] [address] Mar, [facility] [address], [place] [address] February, [facility] [id number] [place] [address] Jan, [facility] [address], [place] [address] Jan, [facility] [id number] [place] [address] Dec, [facility] [address], [place] [address] Nov, [facility] [id number] [place] [address] Nov, [facility] [id number] [place] [address] Sep, [facility] [id number] [place] [address] Aug, [facility] [id number] [place] [address] Jul, [facility] [address], [place] [address] Sep, [facility] [address], [place] [address] Sep, [facility] [address], [place] [address] Aug, [facility] [address], [place] [address] Aug, [facility] [address], [place] [address] Jul, IMMUNIZATIONS No Known Immunizations SOCIAL HISTORY Never Assessed REASON FOR VISIT med request PLAN OF CARE VITAL SIGNS MEDICATIONS Unknown [...]
--- OUTSIDE RECORDS SUMMARY | 2019-04-20 14:05 | XMS REPORT ---
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 Flight Engineer Name Role Phone ANIRUDH ROSE CP Unavailable Allergies, Adverse Reactions, Alerts Substance Reaction Event Type Macrodantin hives Drug Allergy [place] Carbonate itching Drug Allergy Fentanyl blister Drug Allergy Abilify 5 Mg Tablet increased glucose Non Drug Allergy Opioids - Morphine Analogues Info Not Available Non Drug Allergy Problems Problem Type Condition Code Onset Dates Condition Status Assessment PTSD (post-traumatic stress disorder) F43.10 Active Assessment Moderate mixed bipolar I disorder F31.62 Active Problem PTSD (post-traumatic stress disorder) F43.10 Active Problem Moderate mixed bipolar I disorder F31.62 Active Problem Bipolar disorder current episode depressed F31.30 Active Problem Unspecified anemia 285.9 Active Problem Major depressive disorder, recurrent episode, moderate 296.32 Active Problem Other and unspecified bipolar disorders 296.89 Active Problem Nondependent cocaine abuse, unspecified 305.60 Active Medications Medication Code System Code Instructions Start Date End Date Status Dosage Multi Complete [facility] [address] Orally not defined Quetiapine Fumarate [facility] [address]-26 50 mg Orally in the AM April 21, 2016 1 tablet Fetzima [facility] [address]-32 40 MG Orally Once a day April 12, 2016 1 capsule Clonazepam [facility] 99642126475 1MG Orally 1 tab in the AM and 2 tabs at HS 1 tablet midodrine ND 0 10 mg Sep 07, 2012 1 Tablet by Oral route 3 times per day Vitamin D [facility] [address]-89 1000 UNIT Orally Once a day 1 tablet Topamax [facility] 16692368598 100MG Orally Twice a day 1 tablet Natazia [facility] [address]-23 3/2-2/2-3/1 MG Orally Once a day 1 tablet Trazodone HCl [facility] 08992021391 100MG Orally at bedtime for sleep 1 or 2 tabs Seroquel XR [facility] 80407752820 300MG Orally Once a day at hs 2 tablets Oxybutynin Chloride ER [facility] [address]-73 10 MG Orally Once a day 1 tablet Procedures Procedure Coding System Code Date Office Visit, Est Pt., Level 4 CPT-4 37730 April 21, 2016 [facility] VISIT ESTABLISHED PATIENT CPT-4 G0467 April 21, 2016 Vital Signs Date/Time: April 21, 2016 Cardiac Monitoring Heart Rate 80 bpm Weight 154.6 lbs Height 60 in Blood Pressure Diastolic 64 mmHg Blood Pressure Systolic 100 mmHg Results No Known Results Summary Purpose [employer]ClinicalWorks Submission
--- OUTSIDE RECORDS SUMMARY | 2019-04-20 14:05 | XMS REPORT ---
Author ANIRUDH Lubin [employer] Address Unknown Phone Unavailable Care Team Providers Care Rn Imaging Name Role Phone ANIRUDH ROSE CP Unavailable Allergies No Known Allergies Problems Problem Type Condition Code Onset Dates [...] Instructions Start Date End Date Status Dosage Oxybutynin Chloride ER [facility] [address]-49 10 MG Orally Once a day 1 tablet midodrine [facility] 0 10 mg Sep 07, 2012 1 Tablet by Oral route 3 times per day Latuda [facility] [address]-50 40 mg Orally in the evening Jul 26, 2016 1 tablet with 350kcal Natazia [facility] [address]-14 3/2-2/2-3/1 MG Orally Once a day 1 tablet Multi Complete [facility] [address] Orally not defined Clonazepam [facility] 76542748918 1MG Orally 1 tab in the AM and 2 tabs at HS 1 tablet Topamax [facility] 61687348454 100MG Orally Twice a day 1 tablet Trazodone HCl [facility] 02285493506 100MG Orally at bedtime for sleep 1 or 2 tabs Seroquel XR [facility] 35316384324 300MG Orally at HS for one week then continue taper on seroquel IR 1 tablets Fetzima [facility] [address]-57 40 MG Orally Once a day April 12, 2016 1 capsule Seroquel [facility] [address]-05 100 MG Orally START 08/02 and STOP 08/16/16 Jul 26, 2016 2 tablet at HS for one week then decrease to 1 tab at HS for one week thenSTOP Vitamin D [facility] [address]-14 1000 UNIT Orally Once a day 1 tablet Procedures Procedure Coding System Code Date Office Visit, Jaxon Pt., Level 5 CPT-4 61203 Jul 26, 2016 [facility] VISIT ESTABLISHED PATIENT CPT-4 G0467 Jul 26, 2016 Vital Signs Date/Time: Jul 26, 2016 Cardiac Monitoring Heart Rate 98 bpm Weight 164.8 lbs Height 60 in BMI 32.18 Index Blood Pressure Diastolic 64 mmHg Blood Pressure Systolic 112 mmHg Results No Known Results Summary Purpose eClinicalWorks Submission
--- OUTSIDE RECORDS SUMMARY | 2019-04-20 14:05 | XMS REPORT ---
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 Briquette Machine Operator Helper Name Role Phone ANIRUDH ROSE CP Unavailable Allergies No Known Allergies Problems Problem Type Condition Code Onset Dates Condition Status Problem PTSD (post-traumatic stress disorder) F43.10 Active [...] Instructions Start Date End Date Status Dosage Clonazepam [facility] 48489445620 1MG Orally 1 tab in the AM and 2 tabs at HS 1 tablet Results No Known Results Summary Purpose eClinicalWorks Submission
--- OUTSIDE RECORDS SUMMARY | 2019-04-20 14:05 | XMS REPORT ---
Author Author MILTON ANIRUDH [facility] Address [address] [place] [address] Care Team Providers Care It Infrastructure Consultant Name Role Phone MILTON ANIRUDH Unavailable PROBLEMS Type Condition ICD9-CM Code [id number] Code Onset Dates Condition Status SNOMED Code Problem Bipolar disorder current episode depressed F31.30 Active 450203181 Problem Long-term use of high-risk medication Z79.899 Active 443377740 Problem Bipolar disorder, current episode mixed, severe, without psychotic features F31.63 Active 031917637 Problem Bipolar affective disorder, currently depressed, mild F31.31 Active 860113073 Problem Cocaine use F14.90 Active 678077058 Problem ADHD (attention deficit hyperactivity disorder), inattentive type F90.0 Active 19200578 Problem LUCY (generalized anxiety disorder) F41.1 Active 38502215 Problem Bipolar affective disorder, current episode hypomanic F31.0 Active 88389625 Problem Bipolar disorder in partial remission, most recent episode unspecified type F31.70 Active 637712133 Problem Other and unspecified bipolar disorders 296.89 Active 90058673 Problem Unspecified anemia 285.9 Active 414931334 Problem Major depressive disorder, recurrent episode, moderate 296.32 Active 48675251 Problem Nondependent cocaine abuse, unspecified 305.60 Active 240904668 Problem Moderate mixed bipolar I disorder F31.62 Active 68954302 ALLERGIES Substance Reaction Event Type Date Status Macrodantin hives Drug Allergy Dec, Active [place] Carbonate itching Drug Allergy Dec, Active Fentanyl blister Drug Allergy Dec, Active Abilify 5 Mg Tablet increased glucose Non Drug Allergy Dec, Active Opioids - Morphine Analogues Unknown Non Drug Allergy Dec, Active ENCOUNTERS Encounter Location Date Diagnosis [facility] [address] [facility] [id number] [address] Jul, [facility] [address] [facility] [id number] [place] [address] Apr, Bipolar affective disorder, currently depressed, mild F31.31 ; Cocaine use F14.90 ; LUCY (generalized anxiety disorder) F41.1 ; Long-term use of high- risk medication Z79.899 and ADHD (attention deficit hyperactivity disorder), inattentive type F90.0 [place] [id number] [place] [address] Apr, [place] [address] [place] [id number] [place] [address] Apr, Bipolar affective disorder, current episode hypomanic F31.0 ; LUCY (generalized anxiety disorder) F41.1 ; ADHD (attention deficit hyperactivity disorder), inattentive type F90.0 and Encounter for drug screening Z02.83 [place] [address] [place] [id number] [place] [address] Apr, [place] [address] [place] [id number] [place] [address] Jan, [place] [address] [place] [id number] [place] [address] Dec, [place] [address] [place] [id number] [place] [address] Dec, Bipolar affective disorder, current episode hypomanic F31.0 ; Long- term use of high-risk medication Z79.899 and LUCY (generalized anxiety disorder) F41.1 [place] [address] [place] [id number] [place] [address] Nov, [place] [address] [place] [id number] [place] [address] Oct, [place] [address] [place] [id number] [place] [address] Sep, Bipolar disorder in partial remission, most recent episode unspecified type F31.70 ; ADHD (attention deficit hyperactivity disorder), inattentive type F90.0 and LUCY (generalized anxiety disorder) F41.1 [place] [address] [address] Sep, [place] [address] [place] [id number] [place] [address] Aug, Bipolar disorder in partial remission, most recent episode unspecified type F31.70 ; Long-term use of high-risk medication Z79.899 ; ADHD (attention deficit hyperactivity disorder), inattentive type F90.0 and LUCY (generalized anxiety disorder) F41.1 [place] [id number] [place] [address] Aug, [place] [address] [place] [id number] [place] [address] Jul, [place] [address] [place] [id number] [place] [address] May, Visit for TB skin test Z11.1 [place] [address] [place] [id number] [place] [address] May, [place] [address] [place] [id number] [place] [address] Apr, Moderate mixed bipolar I disorder F31.62 and PTSD (post-traumatic stress disorder) F43.10 [place] [address] [address] Mar, [place] [id number] [place] [address] Jan, Moderate mixed bipolar I disorder F31.62 ; PTSD (post-traumatic stress disorder) F43.10 and Long-term use of high-risk medication Z79.899 [place] [id number] [place] [address] Oct, Moderate mixed bipolar I disorder F31.62 and PTSD (post-traumatic stress disorder) F43.10 [place] [address] [address] Sep, PTSD (post-traumatic stress disorder) F43.10 and Moderate mixed bipolar I disorder F31.62 [facility] [address] [facility] [id number] [place] [address] Sep, [facility] [address] [facility] [id number] [place] [address] Sep, [facility] [address] [facility] [id number] [address] Aug, PTSD (post-traumatic stress disorder) F43.10 and Moderate mixed bipolar I disorder F31.62 [facility] [address] [facility] [id number] [place] [address] Jul, [facility] [address] [facility] [id number] [place] [address] Jul, [facility] [address] [place] [id number] [address] Jul, PTSD (post-traumatic stress disorder) F43.10 and Moderate mixed bipolar I disorder F31.62 [facility] [address] [facility] [id number] [place] [address] May, [facility] [address] [facility] [id number] [place] [address] May, [facility] [address] [facility] [id number] [place] [address] Apr, [facility] [address] [facility] [id number] [place] [address] Apr, [facility] [address] [facility] [id number] [place] [address] Apr, PTSD (post-traumatic stress disorder) F43.10 and Moderate mixed bipolar I disorder F31.62 [facility] [address] [facility] [id number] [place] [address] Mar, [facility] [address] [facility] [id number] [place] [address] Mar, [facility] [address] [address] Mar, [facility] [id number] [place] [address] February, [facility] [id number] [place] [address] February, [facility] [address] [place] [id number] [place] [address] Jan, Moderate mixed bipolar I disorder F31.62 and PTSD (post-traumatic stress disorder) F43.10 [place] [id number] [place] [address] Jan, [place] [address] [place] [id number] [place] [address] Dec, Moderate mixed bipolar I disorder F31.62 and PTSD (post-traumatic stress disorder) F43.10 [place] [address] [address] Dec, PTSD (post-traumatic stress disorder) F43.10 and Bipolar disorder current episode depressed F31.30 [place] [address] [address] Sep, [place] [address] [address] Sep, Moderate mixed bipolar I disorder F31.62 and PTSD (post-traumatic stress disorder) F43.10 [place] [address] [address] Aug, PTSD (post-traumatic stress disorder) F43.10 and Moderate mixed bipolar I disorder F31.62 [place] [address] [address] 08 Jul, 2015 PTSD (post-traumatic stress disorder) F43.10 and Moderate mixed bipolar I disorder F31.62 [place] [id number] [place] [address] May, [facility] [address] [address] May, Bipolar I disorder, most recent episode (or current) mixed, in partial or unspecified remission 296.65 and PTSD (post-traumatic stress disorder) 309.81 [facility] [address] [address] Apr, Bipolar I disorder, most recent episode (or current) mixed, moderate 296.62 and Posttraumatic stress disorder 309.81 [facility] [address] [address] Mar, [facility] [address] [address] February, [facility] [address] [address] February, [facility] [address] [address] Jan, [facility] [address] [address] Jan, [facility] [address] [address] Dec, [facility] [address] [address] Dec, [facility] [address] [address] Dec, [facility] [address] [address] Dec, [facility] [address] [address] Nov, [facility] [address] [address] Nov, [facility] [address] [place] [id number] [address] Nov, 2014 [facility] [place] [facility] [address] [id number] [place] [address] Nov, [facility] [place] [facility] [address] [id number] [place] [address] Nov, [facility] [place] [facility] [address] [id number] [place] [address] Oct, [facility] [place] [facility] [address] [id number] [place] [address] Oct, [facility] [place] [facility] [address] [id number] [place] [address] Oct, [facility] [place] [facility] [address] [id number] [place] [address] Oct, [facility] [place] [facility] [address] [id number] [place] [address] Oct, [facility] [place] [facility] [address] [id number] [place] [address] Oct, [facility] [place] [facility] [address] [id number] [place] [address] Sep, [facility] [place] [facility] [address] [id number] [place] [address] Sep, [facility] [place] [facility] [address] [id number] [place] [address] Sep, [facility] [place] [facility] [address] [id number] [place] [address] Sep, [facility] [place] [facility] [address] [id number] [place] [address] Sep, [facility] [place] [facility] [address] [id number] [place] [address] Sep, [facility] [place] [facility] [address] [id number] [place] [address] Sep, [facility] [place] [facility] [address] [id number] [place] [address] Sep, [facility] [place] [facility] [address] [id number] [place] [address] Sep, [facility] [place] [facility] [address] [id number] [place] [address] Sep, [facility] [place] [facility] [address] [id number] [place] [address] Aug, [facility] [place] [facility] [address] [id number] [place] [address] Aug, [facility] [place] [facility] [address] [id number] [place] [address] Aug, [facility] [place] [facility] [address] [id number] [place] [address] Aug, [facility] [place] [facility] [address] [id number] [place] [address] Aug, [facility] [place] [facility] [address] [id number] [place] [address] Aug, [facility] [place] [facility] [address] [id number] [place] [address] Jul, [facility] [place] [facility] [address] [id number] [place] [address] Jul, [facility] [place] [facility] [address] [id number] [place] [address] Jun, [facility] [place] [facility] [address] [id number] [place] [address] Jun, [facility] [place] [facility] [address] [id number] [place] [address] Jun, [facility] [place] [facility] [address] [id number] [place] [address] Jun, [facility] [place] [facility] [address] [id number] [place] [address] Jun, [facility] [place] [facility] [address] [id number] [place] [address] Jun, [facility] [place] [facility] [address] [id number] [place] [address] May, [facility] [place] [facility] [address] [id number] [place] [address] May, [facility] [place] [facility] [address] [id number] [place] [address] May, [facility] [place] [facility] [address] [id number] [place] [address] May, [facility] [place] [facility] [address] [id number] [place] [address] February, [facility] [place] [facility] [address] [id number] [place] [address] February, [facility] [place] [facility] [address] [id number] [place] [address] Nov, [facility] [place] [facility] [address] [id number] [place] [address] Nov, [facility] [place] [facility] [address] [id number] [place] [address] Jul, [facility] [place] [facility] [address] [id number] [place] [address] Jul, [facility] [place] [facility] [address] [id number] [place] [address] Jul, [facility] [place] [facility] [address] [id number] [place] [address] Jul, [facility] [place] [facility] [address] [id number] [place] [address] May, [facility] [place] [facility] [address] [id number] [place] [address] May, [facility] [place] [facility] [address] [id number] [place] [address] February, [facility] [place] [facility] [address] [id number] [place] [address] Dec, [facility] [place] [facility] [address] [id number] [place] [address] Dec, [facility] [place] [facility] [address] [id number] [place] [address] Dec, [facility] [address] [id number] [place] [address] Nov, [facility] [place] [facility] [address] [id number] [place] [address] Oct, [facility] [address] [id number] [place] [address] Sep, [facility] [address] [id number] [place] [address] Sep, [facility] [place] [facility] [address] [id number] [place] [address] Aug, [facility] [address] [id number] [place] [address] Aug, [facility] [place] [facility] [address] [id number] [place] [address] Jul, [facility] [place] [facility] [address] [id number] [place] [address] Jul, [facility] [place] [facility] [address] [id number] [place] [address] Jul, [facility] [place] [facility] [address] [id number] [place] [address] Apr, [facility] [place] [facility] [address] [id number] [place] [address] Apr, [facility] [place] [facility] [address] [id number] [place] [address] Mar, [facility] [address] [address] February, [facility] [address] [address] Jan, [facility] [address] [address] Jan, [facility] [address] [address] Dec, [facility] [id number] [place] [address] Nov, [facility] [address] [place] [id number] [place] [address] Nov, [facility] [id number] [place] [address] Sep, [facility] [address] [address] Aug, [facility] [id number] [place] [address] Jul, [facility] [address] [address] Sep, [facility] [address] [address] Sep, [facility] [address] [id number] [address] Aug, [facility] [address] [address] Aug, [facility] [address] [address] Jul, IMMUNIZATIONS No Known Immunizations SOCIAL HISTORY Never Assessed REASON FOR VISIT f/u Karley, update contract , PDM PLAN OF CARE Activity Details Follow Up 3 Months Reason: VITAL SIGNS Height 60 in 2018-01-02 Weight 146.0 lbs 2018-01-02 Heart Rate 88 bpm 2018-01-02 Respiratory Rate 20 2018-01-02 BMI 28.51 kg/m2 2018-01-02 Blood pressure systolic 108 mmHg 2018-01-02 Blood pressure diastolic 72 mmHg 2018-01-02 MEDICATIONS Medication Instructions Dosage Frequency Start Date End Date Duration Status Oxybutynin Chloride ER 10 MG Orally Once a day 1 tablet 24h Active Latuda 60MG TAKE ONE TABLET BY MOUTH IN THE EVENING WITH 350KCAL Active Fetzima 40MG TAKE ONE CAPSULE BY MOUTH ONCE DAILY Active Atomoxetine HCl 25 MG Orally Twice a day for ADHD 1 capsule Aug, Active Topamax 100 mg Orally Twice a day 1 tablet 12h Active Clonazepam 1MG Orally 1 tab in the AM and 2 tabs at HS 1 tablet Active Trazodone HCl 100MG TAKE TWO TABLETS BY MOUTH AT BEDTIME FOR SLEEP Active Natazia 3/2-2/2-3/1 MG Orally Once a day 1 tablet 24h Active Loxapine Succinate 10 mg Orally at bedtime for sleep 1 or 2 capsule Dec, 30 day(s) Active midodrine 10 mg 1 Tablet by Oral route 3 times per day Aug, Active Multi Complete Not-Taking Vitamin D 5000 UNIT Orally Once a day 1 tablet 24h Active RESULTS No Results PROCEDURES Procedure Date Ordered Result Body Site DRUG TEST PRSMV CHEM ANLYZR January 02, 2018 DRUG SCREEN AMPHETAMINES 10/17January 02, 2018 [facility] VISIT ESTABLISHED PATIENT January 02, 2018 INSTRUCTIONS MEDICATIONS ADMINISTERED No Known Medications [...]
--- OUTSIDE RECORDS SUMMARY | 2019-04-20 14:05 | XMS REPORT ---
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 Automotive Accessory Installer Name Role Phone ANIRUDH ROSE CP Unavailable [...] Instructions Start Date End Date Status Dosage [facility]odone [facility] [id number] 100MG Orally at bedtime for sleep 1 or 2 tabs Results No Known Results Summary Purpose eClinical[employer] Submission
--- OUTSIDE RECORDS SUMMARY | 2019-04-20 14:05 | XMS REPORT ---
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 Motor Repair Supervisor Name Role Phone ANIRUDH ROSE CP Unavailable Allergies No Known Allergies Problems Problem Type Condition Code Onset Dates Condition Status Problem Moderate mixed bipolar I disorder F31.62 Active Problem Other and unspecified bipolar disorders 296.89 Active Problem PTSD (post-traumatic stress disorder) F43.10 Active Problem Major depressive disorder, recurrent episode, moderate 296.32 Active Problem Nondependent cocaine abuse, unspecified 305.60 Active Problem Unspecified anemia 285.9 Active Medications Medication Code System Code Instructions Start Date End Date Status Dosage Clonazepam [facility] [id number] 1MG Orally 1 tab in the AM and 2 tabs at HS 1 tablet Results No Known Results Summary Purpose eClinicalWorks Submission
--- OUTSIDE RECORDS SUMMARY | 2019-04-20 14:05 | XMS REPORT ---
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 Computer Information Science Professor Name Role Phone MILTON ANIRUDH Unavailable PROBLEMS Type Condition ICD9-CM Code SNT21-PA Code Onset Dates Condition Status SNOMED Code Problem Major depressive disorder, recurrent episode, moderate 296.32 Active 90813391 Problem Bipolar disorder current episode depressed F31.30 Active 990378366 Problem Moderate mixed bipolar I disorder F31.62 Active 35766312 Problem Nondependent cocaine abuse, unspecified 305.60 Active 106513067 Problem Other and unspecified bipolar disorders 296.89 Active 11162180 Problem Unspecified anemia 285.9 Active 468446367 Problem Bipolar affective disorder, current episode hypomanic F31.0 Active 73406946 Problem Bipolar disorder in partial remission, most recent episode unspecified type F31.70 Active 928571554 Problem Long-term use of high-risk medication Z79.899 Active 181939267 Problem Bipolar disorder, current episode mixed, severe, without psychotic features F31.63 Active 181821916 Problem ADHD (attention deficit hyperactivity disorder), inattentive type F90.0 Active 39182528 Problem LUCY (generalized anxiety disorder) F41.1 Active 04329360 ALLERGIES No Information ENCOUNTERS Encounter Location Date Diagnosis [facility] [address] [facility] [id number] [address] Jul, [facility] [address] [facility] [id number] [place] [address] Apr, [facility] [id number] [address] Apr, [facility] [id number] [address] Apr, Bipolar affective disorder, current episode hypomanic F31.0 ; LUCY (generalized anxiety disorder) F41.1 ; ADHD (attention deficit hyperactivity disorder), inattentive type F90.0 and Encounter for drug screening Z02.83 [facility] [id number] [place] [address] Apr, [facility] [id number] [address] Jan, [facility] [id number] [place] [address] Dec, [facility] [id number] [place] [address] Dec, Bipolar affective disorder, current episode hypomanic F31.0 ; Long- term use of high-risk medication Z79.899 and LUCY (generalized anxiety disorder) F41.1 [facility] [id number] [address] Nov, [facility] [id number] [address] Oct, [facility] [id number] [address] Sep, Bipolar disorder in partial remission, most recent episode unspecified type F31.70 ; ADHD (attention deficit hyperactivity disorder), inattentive type F90.0 and LUCY (generalized anxiety disorder) F41.1 [facility] [id number] [address] Sep, [facility] [id number] [address] Aug, Bipolar disorder in partial remission, most recent episode unspecified type F31.70 ; Long-term use of high-risk medication Z79.899 ; ADHD (attention deficit hyperactivity disorder), inattentive type F90.0 and LUCY (generalized anxiety disorder) F41.1 [facility] [id number] [address] Aug, [facility] [address] [address] Jul, [facility] [id number] [place] [address] May, Visit for TB skin test Z11.1 [facility] [place] [id number] [place] [address] May, [facility] [id number] [place] [address] Apr, Moderate mixed bipolar I disorder F31.62 and PTSD (post-traumatic stress disorder) F43.10 [facility] [id number] [place] [address] Mar, [facility] [id number] [place] [address] Jan, Moderate mixed bipolar I disorder F31.62 ; PTSD (post-traumatic stress disorder) F43.10 and Long-term use of high-risk medication Z79.899 [facility] [place] [address] [place] [address] Oct, Moderate mixed bipolar I disorder F31.62 and PTSD (post-traumatic stress disorder) F43.10 [place] [address] [address] Sep, PTSD (post-traumatic stress disorder) F43.10 and Moderate mixed bipolar I disorder F31.62 [facility] [address] [address] Sep, [facility] [address] [address] Sep, [facility] [place] [id number] [place] [address] Aug, PTSD (post-traumatic stress disorder) F43.10 and Moderate mixed bipolar I disorder F31.62 [facility] [place] [id number] [place] [address] Jul, [facility] [address] [address] Jul, [facility] [id number] [place] [address] Jul, PTSD (post-traumatic stress disorder) F43.10 and Moderate mixed bipolar I disorder F31.62 [facility] [id number] [place] [address] May, [facility] [id number] [place] [address] May, [facility] [id number] [place] [address] Apr, [facility] [id number] [place] [address] Apr, [facility] [id number] [place] [address] Apr, PTSD (post-traumatic stress disorder) F43.10 and Moderate mixed bipolar I disorder F31.62 [facility] [address] [place] [address] Mar, [facility] [address] [address] Mar, [facility] [address] [address] Mar, [facility] [id number] [address] February, [facility] [address] [place] [address] February, [facility] [id number] [address] Jan, Moderate mixed bipolar I disorder F31.62 and PTSD (post-traumatic stress disorder) F43.10 [facility] [address] [address] Jan, [facility] [id number] [place] [address] Dec, Moderate mixed bipolar I disorder F31.62 and PTSD (post-traumatic stress disorder) F43.10 [place] [address] [place] [address] Dec, PTSD (post-traumatic stress disorder) F43.10 and Bipolar disorder current episode depressed F31.30 [place] [place] [address] [place] [address] Sep, [place] [place] [id number] [place] [address] Sep, Moderate mixed bipolar I disorder F31.62 and PTSD (post-traumatic stress disorder) F43.10 [place] [id number] [place] [address] Aug, PTSD (post-traumatic stress disorder) F43.10 and Moderate mixed bipolar I disorder F31.62 [place] [place] [id number] [place] [address] Jul, PTSD (post-traumatic stress disorder) F43.10 and Moderate mixed bipolar I disorder F31.62 [facility] [place] [address] [address] May, [facility] [place] [id number] [place] [address] May, Bipolar I disorder, most recent episode (or current) mixed, in partial or unspecified remission 296.65 and PTSD (post-traumatic stress disorder) 309.81 [place] [address] [place] [address] Apr, Bipolar I disorder, most recent episode (or current) mixed, moderate 296.62 and Posttraumatic stress disorder 309.81 [place] [id number] [place] [address] Mar, [facility] [place] [facility] [address] [id number] [place] [address] February, [facility] [place] [facility] [address] [id number] [place] [address] February, [facility] [place] [facility] [address] [id number] [place] [address] Jan, [facility] [place] [facility] [address] [id number] [place] [address] Jan, [facility] [place] [facility] [address] [id number] [place] [address] Dec, [facility] [place] [facility] [address] [id number] [place] [address] Dec, [facility] [place] [facility] [address] [id number] [place] [address] Dec, [facility] [place] [facility] [address] [id number] [place] [address] Dec, [facility] [place] [facility] [address] [id number] [place] [address] Nov, [facility] [place] [facility] [address] [id number] [place] [address] Nov, [facility] [place] [facility] [address] [id number] [place] [address] Nov, [facility] [place] [facility] [address] [id number] [place] [address] Nov, [facility] [place] [facility] [address] [id number] [place] [address] Nov, [facility] [place] [facility] [address] [id number] [place] [address] Oct, [facility] [place] [facility] [address] [id number] [place] [address] Oct, [facility] [place] [facility] [address] [id number] [place] [address] Oct, [facility] [place] [facility] [address] [id number] [place] [address] Oct, [facility] [place] [facility] [address] [id number] [place] [address] Oct, [facility] [place] [facility] [address] [id number] [place] [address] Oct, [facility] [place] [facility] [address] [id number] [place] [address] Sep, [facility] [place] [facility] [address] [id number] [place] [address] Sep, [facility] [place] [facility] [address] [id number] [place] [address] Sep, [facility] [place] [facility] [address] [id number] [place] [address] Sep, [facility] [place] [facility] [address] [id number] [place] [address] Sep, [facility] [place] [facility] [address] [id number] [place] [address] Sep, [facility] [place] [facility] [address] [id number] [place] [address] Sep, [facility] [place] [facility] [address] [id number] [place] [address] Sep, [facility] [place] [facility] [address] [id number] [place] [address] Sep, [facility] [place] [facility] [address] [id number] [place] [address] Sep, [facility] [place] [facility] [address] [id number] [place] [address] Aug, [facility] [place] [facility] [address] [id number] [place] [address] Aug, [facility] [place] [facility] [address] [id number] [place] [address] Aug, [facility] [place] [facility] [address] [id number] [place] [address] Aug, [facility] [place] [facility] [address] [facility] [id number] [place] [address] Aug, [facility] [place] [facility] [address] [id number] [place] [address] Aug, [facility] [place] [facility] [address] [id number] [place] [address] Jul, [facility] [place] [facility] [address] [id number] [place] [address] Jul, [facility] [place] [facility] [address] [id number] [place] [address] Jun, [facility] [place] [facility] [address] [id number] [place] [address] Jun, [facility] [place] [facility] [address] [id number] [place] [address] Jun, [facility] [place] [facility] [address] [id number] [place] [address] Jun, [facility] [place] [facility] [address] [id number] [place] [address] Jun, [facility] [place] [facility] [address] [id number] [place] [address] Jun, [facility] [place] [facility] [address] [id number] [place] [address] May, [facility] [place] [facility] [address] [id number] [place] [address] May, [facility] [place] [facility] [address] [id number] [place] [address] May, [facility] [place] [facility] [address] [id number] [place] [address] May, [facility] [address] [id number] [place] [address] February, [facility] [place] [facility] [address] [id number] [place] [address] February, [facility] [place] [facility] [address] [id number] [place] [address] Nov, [facility] [place] [facility] [address] [id number] [place] [address] Nov, [facility] [address] [id number] [place] [address] Jul, [facility] [address] [id number] [place] [address] Jul, [facility] [place] [facility] [address] [id number] [place] [address] Jul, [facility] [address] [id number] [place] [address] Jul, [facility] [place] [facility] [address] [id number] [place] [address] May, [facility] [address] [id number] [place] [address] May, [facility] [place] [facility] [address] [id number] [place] [address] February, [facility] [place] [facility] [address] [id number] [place] [address] Dec, [facility] [place] [facility] [address] [id number] [place] [address] Dec, [facility] [place] [facility] [address] [id number] [place] [address] Dec, [facility] [place] [facility] [address] [id number] [place] [address] Nov, [facility] [place] [facility] [address] [id number] [place] [address] Oct, [facility] [place] [facility] [address] [id number] [place] [address] Sep, [facility] [place] [facility] [address] [id number] [place] [address] Sep, [facility] [place] [facility] [address] [id number] [place] [address] Aug, [facility] [place] [facility] [address] [id number] [place] [address] Aug, [facility] [place] [facility] [address] [id number] [place] [address] Jul, [facility] [place] [facility] [address] [id number] [place] [address] Jul, [facility] [place] [facility] [address] [id number] [place] [address] Jul, [facility] [place] [facility] [address] [id number] [place] [address] Apr, [facility] [place] [facility] [address] [facility] [id number] [place] [address] Apr, [facility] [place] [facility] [address] [facility] [id number] [place] [address] Mar, [facility] [place] [facility] [address] [id number] [place] [address] February, [facility] [place] [facility] [address] [id number] [place] [address] Jan, [facility] [place] [facility] [address] [id number] [place] [address] Jan, [facility] [place] [facility] [address] [facility] [id number] [place] [address] Dec, [facility] [place] [facility] [address] [id number] [place] [address] Nov, [facility] [id number] [address] Nov, [facility] [id number] [address] Sep, [facility] [id number] [address] Aug, [facility] [address] [address] Jul, [facility] [address] [address] Sep, [facility] [address] [address] Sep, [facility] [address] [address] Aug, [facility] [id number] [address] Aug, [facility] [id number] [address] Jul, IMMUNIZATIONS No Known Immunizations SOCIAL HISTORY [...]
--- OUTSIDE RECORDS SUMMARY | 2019-04-20 14:06 | XMS REPORT ---
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 Fuselage Framer Name Role Phone ANIRUDH ROSE CP Unavailable Allergies No Known Allergies Problems Problem Type Condition Code Onset Dates Condition Status Assessment Moderate mixed bipolar I disorder F31.62 Active Problem Moderate mixed bipolar I disorder F31.62 Active Problem Other and unspecified bipolar disorders 296.89 Active Problem PTSD (post-traumatic stress disorder) F43.10 Active Problem Major depressive disorder, recurrent episode, moderate 296.32 Active Assessment PTSD (post-traumatic stress disorder) F43.10 Active Problem Nondependent cocaine abuse, unspecified 305.60 Active Problem Unspecified anemia 285.9 Active Medications Medication Code System Code Instructions Start Date End Date Status Dosage Vitamin D [facility] [address]-83 1000 UNIT Orally Once a day 1 tablet Multi Complete [facility] [address] Orally not defined Topamax [facility] 28937641803 100MG TAKE 1 Tablet by Oral route 2 times per day 1 tablet by oral route 2 times per day for mood Lexapro [facility] [address]-32 10 MG Orally Once a day Aug 27, 2015 1 tablet Clonazepam [facility] 98782040893 1MG Orally 1 tab in the AM and 2 tabs at HS 1 tablet Seroquel XR [facility] 56926864073 150 MG Orally Once a day at hs 2 tablets Trazodone HCl [facility] 36806675692 100MG 1 tablet at bedtime midodrine ND 0 10 mg Sep 07, 2012 1 Tablet by Oral route 3 times per day Oxybutynin Chloride ER [facility] [address]-68 10 MG Orally Once a day 1 tablet Natazia [facility] [address]-22 3/2-2/2-3/1 MG Orally Once a day 1 tablet Procedures Procedure Coding System Code Date Office Visit, Est Pt., Level 4 CPT-4 79143 Aug 27, 2015 [facility] VISIT ESTABLISHED PATIENT CPT-4 G0467 Aug 27, 2015 Vital Signs Date/Time: Aug 27, 2015 Cardiac Monitoring Heart Rate 72 bpm Weight 138.7 lbs Height 60 in BMI 27.09 Index Blood Pressure Diastolic 68 mmHg Blood Pressure Systolic 108 mmHg Results No Known Results Summary Purpose [employer] Submission
--- OUTSIDE RECORDS SUMMARY | 2019-04-20 14:06 | XMS REPORT ---
Author Author MILTON ANIRUDH [facility] Address [address] [place] [address] Care Team Providers Care Clinical Trial Associate Name Role Phone MILTON ANIRUDH Unavailable PROBLEMS Type Condition ICD9-CM Code LXN05-SH Code Onset Dates Condition Status SNOMED Code Problem Major depressive disorder, recurrent episode, moderate 296.32 Active 05892320 Problem Bipolar disorder current episode depressed F31.30 Active 813961043 Problem Moderate mixed bipolar I disorder F31.62 Active 32524988 Problem Nondependent cocaine abuse, unspecified 305.60 Active 343804005 Problem Other and unspecified bipolar disorders 296.89 Active 17257332 Problem Unspecified anemia 285.9 Active 831886104 Problem Bipolar affective disorder, current episode hypomanic F31.0 Active 24840624 Problem Bipolar disorder in partial remission, most recent episode unspecified type F31.70 Active 046573522 Problem Long-term use of high-risk medication Z79.899 Active 598805691 Problem Bipolar disorder, current episode mixed, severe, without psychotic features F31.63 Active 322307136 Problem ADHD (attention deficit hyperactivity disorder), inattentive type F90.0 Active 21716960 Problem LUCY (generalized anxiety disorder) F41.1 Active 60002533 ALLERGIES No Information ENCOUNTERS Encounter Location Date Diagnosis [place] [address] [facility] [id number] [address] Mar, [facility] [address] [facility] [id number], [place] [address] Jan, [facility] [id number] [address] Dec, [facility] [address] [id number], [place] [address] Dec, Bipolar affective disorder, current episode hypomanic F31.0 ; Long- term use of high-risk medication Z79.899 and LUCY (generalized anxiety disorder) F41.1 [facility] [address], [place] [address] Nov, [facility] [address] [place] [address] Oct, [place] [address] [place] [address] Sep, Bipolar disorder in partial remission, most recent episode unspecified type F31.70 ; ADHD (attention deficit hyperactivity disorder), inattentive type F90.0 and LUCY (generalized anxiety disorder) F41.1 [place] [address] [place] [address] Sep, [place] [address] [place] [address] Aug, Bipolar disorder in partial remission, most recent episode unspecified type F31.70 ; Long-term use of high-risk medication Z79.899 ; ADHD (attention deficit hyperactivity disorder), inattentive type F90.0 and LUCY (generalized anxiety disorder) F41.1 [place] [address] [place] [address] Aug, [place] [address] [place] [address] Jul, [place] [address] [place] [id number] [place] [address] May, Visit for TB skin test Z11.1 [place] [address] [place] [address] May, [place] [address] [place] [id number] [place] [address] Apr, Moderate mixed bipolar I disorder F31.62 and PTSD (post-traumatic stress disorder) F43.10 [place] [address] [place] [id number] [place] [address] Mar, [facility] [address], [place] [address] Jan, Moderate mixed bipolar I disorder F31.62 ; PTSD (post-traumatic stress disorder) F43.10 and Long-term use of high-risk medication Z79.899 [facility] [address], [place] [address] Oct, Moderate mixed bipolar I disorder F31.62 and PTSD (post-traumatic stress disorder) F43.10 [facility] [address], [place] [address] Sep, PTSD (post-traumatic stress disorder) F43.10 and Moderate mixed bipolar I disorder F31.62 [facility] [address], [place] [address] Sep, [facility] [address] [place] [address] [place] [address] Sep, [facility] [address], [place] [address] Aug, PTSD (post-traumatic stress disorder) F43.10 and Moderate mixed bipolar I disorder F31.62 [facility] [address], [place] [address] Jul, [facility] [address], [place] [address] Jul, [facility] [address], [place] [address] Jul, PTSD (post-traumatic stress disorder) F43.10 and Moderate mixed bipolar I disorder F31.62 [facility] [address], [place] [address] May, [facility] [id number], [place] [address] May, [facility] [address] [place] [id number] [place] [address] Apr, [facility] [address], [place] [address] Apr, [facility] [address] [place] [address] Apr, PTSD (post-traumatic stress disorder) F43.10 and Moderate mixed bipolar I disorder F31.62 [facility] [address] [place] [address] Mar, [facility] [address] [place] [address] Mar, [facility] [address] [place] [id number] [place] [address] Mar, [facility] [address] [place] [place] [address] February, [facility] [address] [place] [address] [id number] [place] [address] February, [facility] [address], [place] [address] Jan, Moderate mixed bipolar I disorder F31.62 and PTSD (post-traumatic stress disorder) F43.10 [facility] [address], [place] [address] Jan, [facility] [address], [place] [address] 24 Dec, 2015 Moderate mixed bipolar I disorder F31.62 and PTSD (post-traumatic stress disorder) F43.10 [facility] [address], [place] [address] Dec, PTSD (post-traumatic stress disorder) F43.10 and Bipolar disorder current episode depressed F31.30 [facility] [address], [place] [address] Sep, [facility] [address] [place] [address] [place] [address] Sep, Moderate mixed bipolar I disorder F31.62 and PTSD (post-traumatic stress disorder) F43.10 [facility] [address] [place] [id number] [place] [address] Aug, PTSD (post-traumatic stress disorder) F43.10 and Moderate mixed bipolar I disorder F31.62 [facility] [address] [place] [id number] [place] [address] Jul, PTSD (post-traumatic stress disorder) F43.10 and Moderate mixed bipolar I disorder F31.62 [place] [address] [place] [id number] [place] [address] May, [place] [address] [place] [id number] [place] [address] May, Bipolar I disorder, most recent episode (or current) mixed, in partial or unspecified remission 296.65 and PTSD (post-traumatic stress disorder) 309.81 [facility] [address] [place] [id number] [place] [address] Apr, Bipolar I disorder, most recent episode (or current) mixed, moderate 296.62 and Posttraumatic stress disorder 309.81 [facility] [address] [place] [address] Mar, [facility] [address] [place] [id number] [place] [address] February, [facility] [address] [place] [id number] [place] [address] February, [facility] [address] [place] [id number] [place] [address] Jan, [facility] [address] [place] [id number] [place] [address] Jan, [facility] [address] [place] [id number] [place] [address] Dec, [facility] [place] [facility] [address] [id number] [place] [address] Dec, [facility] [place] [facility] [address] [id number] [place] [address] Dec, [facility] [place] [facility] [address] [id number] [place] [address] Dec, [facility] [place] [facility] [address] [id number] [place] [address] Nov, [facility] [place] [facility] [address] [id number] [place] [address] Nov, [facility] [place] [facility] [address] [id number] [place] [address] Nov, [facility] [place] [facility] [address] [id number] [place] [address] Nov, [facility] [place] [facility] [address] [id number] [place] [address] Nov, [facility] [place] [facility] [address] [id number] [place] [address] Oct, [facility] [place] [facility] [address] [id number] [place] [address] Oct, [facility] [place] [facility] [address] [id number] [place] [address] Oct, [facility] [place] [facility] [address] [id number] [place] [address] Oct, [facility] [place] [facility] [address] [id number] [place] [address] Oct, [facility] [place] [facility] [address] [id number] [place] [address] Oct, [facility] [place] [facility] [address] [id number] [place] [address] Sep, [facility] [place] [facility] [address] [id number] [place] [address] Sep, [facility] [place] [facility] [address] [id number] [place] [address] Sep, [facility] [place] [facility] [address] [id number] [place] [address] Sep, [facility] [place] [facility] [address] [id number] [place] [address] Sep, [facility] [place] [facility] [address] [id number] [place] [address] Sep, [facility] [place] [facility] [address] [id number] [place] [address] Sep, [facility] [place] [facility] [address] [id number] [place] [address] Sep, [facility] [place] [facility] [address] [id number] [place] [address] Sep, [facility] [place] [facility] [address] [id number] [place] [address] Sep, [facility] [place] [facility] [address] [id number] [place] [address] Aug, [facility] [place] [facility] [address] [id number] [place] [address] Aug, [facility] [place] [facility] [address] [id number] [place] [address] Aug, [facility] [place] [facility] [address] [id number] [place] [address] Aug, [facility] [place] [facility] [address] [id number] [place] [address] Aug, [facility] [place] [facility] [address] [id number] [place] [address] Aug, [facility] [place] [facility] [address] [id number] [place] [address] Jul, [facility] [place] [facility] [address] [id number] [place] [address] Jul, [facility] [place] [facility] [address] [id number] [place] [address] Jun, [facility] [place] [facility] [address] [id number] [place] [address] Jun, [facility] [place] [facility] [address] [id number] [place] [address] Jun, [facility] [place] [facility] [address] [id number] [place] [address] Jun, [facility] [place] [facility] [address] [id number] [place] [address] Jun, [facility] [place] [facility] [address] [id number] [place] [address] Jun, [facility] [place] [facility] [address] [id number] [place] [address] May, [facility] [place] [facility] [address] [id number] [place] [address] May, [facility] [place] [facility] [address] [id number] [place] [address] May, [facility] [place] [facility] [address] [id number] [place] [address] May, [facility] [place] [facility] [address] [id number] [place] [address] February, [facility] [place] [facility] [address] [id number] [place] [address] February, [facility] [place] [facility] [address] [id number] [place] [address] Nov, [facility] [place] [facility] [address] [id number] [place] [address] Nov, [facility] [place] [facility] [address] [id number] [place] [address] Jul, [facility] [place] [facility] [address] [id number] [place] [address] Jul, [facility] [place] [facility] [address] [id number] [place] [address] Jul, [facility] [place] [facility] [address] [id number] [place] [address] Jul, [facility] [place] [facility] [address] [id number] [place] [address] May, [facility] [place] [facility] [address] [id number] [place] [address] May, [facility] [place] [facility] [address] [id number] [place] [address] February, [facility] [place] [facility] [address] [id number] [place] [address] Dec, [facility] [place] [facility] [address] [id number] [place] [address] Dec, [facility] [place] [facility] [address] [id number] [place] [address] Dec, [facility] [place] [facility] [address] [id number] [place] [address] Nov, [facility] [place] [facility] [address] [id number], [place] [address] Oct, [facility] [place] [facility] [address] [id number], [place] [address] Sep, [facility] [place] [facility] [address] [id number] [place] [address] Sep, [facility] [place] [facility] [address] [id number] [place] [address] Aug, [facility] [place] [facility] [address] [id number] [place] [address] Aug, [facility] [place] [facility] [address] [id number] [place] [address] Jul, [facility] [address] [id number] [place] [address] Jul, [facility] [place] [facility] [address] [id number] [place] [address] Jul, [facility] [address] [id number] [place] [address] Apr, [facility] [place] [facility] [address] [id number] [place] [address] Apr, [facility] [address] [id number] [place] [address] Mar, [facility] [place] [facility] [address] [id number] [place] [address] February, [facility] [address] [id number] [place] [address] Jan, [facility] [address] [id number] [place] [address] Jan, [facility] [place] [facility] [address] [facility] [id number] [place] [address] Dec, [facility] [address] [id number] [place] [address] Nov, [facility] [place] [facility] [address] [id number] [place] [address] Nov, [facility] [place] [facility] [address] [facility] [id number] [place] [address] Sep, [facility] [place] [facility] [address] [id number] [place] [address] Aug, [facility] [place] [facility] [address] [id number] [place] [address] Jul, [facility] [place] [facility] [address] [id number] [place] [address] Sep, [facility] [address] [id number] [place] [address] Sep, [facility] [id number], [place] [address] Aug, [facility] [address] [id number], [place] [address] Aug, [facility] [address] [facility] [id number], [place] [address] Jul, IMMUNIZATIONS No Known Immunizations SOCIAL HISTORY Never Assessed REASON FOR VISIT Refill request PLAN OF CARE VITAL SIGNS MEDICATIONS [...]
--- OUTSIDE RECORDS SUMMARY | 2019-04-20 14:06 | XMS REPORT ---
Author Author MILTON ANIRUDH [facility] Address [address] [place] [address] Care Team Providers Care Construction Project Manager Name Role Phone MILTON ANIRUDH Unavailable PROBLEMS Type Condition ICD9-CM Code [id number] Code Onset Dates Condition Status SNOMED Code Problem Major depressive disorder, recurrent episode, moderate 296.32 Active 59065576 Problem Bipolar disorder current episode depressed F31.30 Active 735164587 Problem Moderate mixed bipolar I disorder F31.62 Active 83800446 Problem Nondependent cocaine abuse, unspecified 305.60 Active 757085181 Problem Other and unspecified bipolar disorders 296.89 Active 44980192 Problem Unspecified anemia 285.9 Active 671826054 Problem Bipolar affective disorder, current episode hypomanic F31.0 Active 91308103 Problem Bipolar disorder in partial remission, most recent episode unspecified type F31.70 Active 309530348 Problem Long-term use of high-risk medication Z79.899 Active 492824623 Problem Bipolar disorder, current episode mixed, severe, without psychotic features F31.63 Active 815989919 Problem ADHD (attention deficit hyperactivity disorder), inattentive type F90.0 Active 15149646 Problem LUCY (generalized anxiety disorder) F41.1 Active 08722530 ALLERGIES No Information ENCOUNTERS Encounter Location Date Diagnosis [facility] [address] [address] [id number], [place] [address] Jul, [facility] [address] [facility] [address] [id number], [place] [address] Apr, [facility] [address] [facility] [address] [id number], [place] [address] Apr, Bipolar affective disorder, current episode hypomanic F31.0 ; LUCY (generalized anxiety disorder) F41.1 ; ADHD (attention deficit hyperactivity disorder), inattentive type F90.0 and Encounter for drug screening Z02.83 [facility] [address], [place] [address] Apr, [facility] [address] [address] Jan, [facility] [address], [place] [address] Dec, [facility] [id number] [place] [address] Dec, Bipolar affective disorder, current episode hypomanic F31.0 ; Long- term use of high-risk medication Z79.899 and LUCY (generalized anxiety disorder) F41.1 [facility] [address] [address] Nov, [facility] [address], [place] [address] Oct, [facility] [address], [place] [address] Sep, Bipolar disorder in partial remission, most recent episode unspecified type F31.70 ; ADHD (attention deficit hyperactivity disorder), inattentive type F90.0 and LUCY (generalized anxiety disorder) F41.1 [facility] [address] [address] Sep, [facility] [address], [place] [address] Aug, Bipolar disorder in partial remission, most recent episode unspecified type F31.70 ; Long-term use of high-risk medication Z79.899 ; ADHD (attention deficit hyperactivity disorder), inattentive type F90.0 and LUCY (generalized anxiety disorder) F41.1 [facility] [address], [place] [address] Aug, [facility] [id number] [address] Jul, [facility] [address], [place] [address] May, Visit for TB skin test Z11.1 [facility] [id number] [place] [address] May, [facility] [place] [id number] [place] [address] Apr, Moderate mixed bipolar I disorder F31.62 and PTSD (post-traumatic stress disorder) F43.10 [facility] [id number] [place] [address] Mar, [facility] [id number] [place] [address] Jan, Moderate mixed bipolar I disorder F31.62 ; PTSD (post-traumatic stress disorder) F43.10 and Long-term use of high-risk medication Z79.899 [facility] [id number] [place] [address] Oct, Moderate mixed bipolar I disorder F31.62 and PTSD (post-traumatic stress disorder) F43.10 [facility] [id number] [place] [address] Sep, PTSD (post-traumatic stress disorder) F43.10 and Moderate mixed bipolar I disorder F31.62 [facility] [address], [place] [address] Sep, [facility] [id number] [place] [address] Sep, [facility] [place] [address], [place] [address] Aug, PTSD (post-traumatic stress disorder) F43.10 and Moderate mixed bipolar I disorder F31.62 [place] [id number] [place] [address] Jul, [facility] [id number] [place] [address] Jul, [facility] [address] [facility] [address] [id number], [place] [address] Jul, PTSD (post-traumatic stress disorder) F43.10 and Moderate mixed bipolar I disorder F31.62 [facility] [address] [id number] [place] [address] May, [facility] [address] [facility] [id number] [place] [address] May, [facility] [address] [facility] [address] [id number], [place] [address] Apr, [facility] [address] [id number] [place] [address], [place] [address] Apr, [facility] [id number] [address] Apr, PTSD (post-traumatic stress disorder) F43.10 and Moderate mixed bipolar I disorder F31.62 [facility] [address] [facility] [id number], [place] [address] Mar, [facility] [id number] [address] Mar, [facility] [address] [facility] [id number], [place] [address] Mar, [facility] [address] [facility] [id number], [place] [address] February, [facility] [address] [id number], [place] [address] February, [facility] [address] [facility] [id number], [place] [address] Jan, Moderate mixed bipolar I disorder F31.62 and PTSD (post-traumatic stress disorder) F43.10 [facility] [address] [facility] [address] [id number], [place] [address] Jan, [facility] [address], [place] [address] Dec, Moderate mixed bipolar I disorder F31.62 and PTSD (post-traumatic stress disorder) F43.10 [place] [id number] [place] [address] Dec, PTSD (post-traumatic stress disorder) F43.10 and Bipolar disorder current episode depressed F31.30 [place] [place] [id number] [place] [address] Sep, [facility] [id number] [place] [address] Sep, Moderate mixed bipolar I disorder F31.62 and PTSD (post-traumatic stress disorder) F43.10 [place] [address] [place] [address] Aug, PTSD (post-traumatic stress disorder) F43.10 and Moderate mixed bipolar I disorder F31.62 [facility] [id number] [place] [address] Jul, PTSD (post-traumatic stress disorder) F43.10 and Moderate mixed bipolar I disorder F31.62 [facility] [id number] [place] [address] May, [place] [address], [place] [address] May, Bipolar I disorder, most recent episode (or current) mixed, in partial or unspecified remission 296.65 and PTSD (post-traumatic stress disorder) 309.81 [place] [address], [place] [address] Apr, Bipolar I disorder, most recent episode (or current) mixed, moderate 296.62 and Posttraumatic stress disorder 309.81 [place] [address] [place] [address] Mar, [place] [id number] [place] [address] February, [facility] [place] [facility] [address] [id number] [place] [address] February, [facility] [place] [facility] [address] [id number] [place] [address] Jan, [facility] [place] [facility] [address] [id number] [place] [address] Jan, [facility] [place] [facility] [address] [id number] [place] [address] Dec, [facility] [place] [facility] [address] [id number] [place] [address] Dec, [facility] [place] [facility] [address] [id number] [place] [address] Dec, [facility] [place] [facility] [address] [id number] [place] [address] Dec, [facility] [place] [facility] [address] [id number] [place] [address] Nov, [facility] [place] [facility] [address] [id number] [place] [address] Nov, [facility] [place] [facility] [address] [id number] [place] [address] Nov, [facility] [place] [facility] [address] [id number] [place] [address] Nov, [facility] [place] [facility] [address] [id number] [place] [address] Nov, [facility] [place] [facility] [address] [id number] [place] [address] Oct, [facility] [place] [facility] [address] [id number] [place] [address] Oct, [facility] [place] [facility] [address] [facility] [address] [id number] [place] [address] Oct, [facility] [place] [facility] [address] [id number] [place] [address] Oct, [facility] [place] [facility] [address] [id number] [place] [address] Oct, [facility] [place] [facility] [address] [id number] [place] [address] Oct, [facility] [place] [facility] [address] [id number] [place] [address] Sep, [facility] [place] [facility] [address] [id number] [place] [address] Sep, [facility] [place] [facility] [address] [id number] [place] [address] Sep, [facility] [place] [facility] [address] [id number] [place] [address] Sep, [facility] [place] [facility] [address] [id number] [place] [address] Sep, [facility] [place] [facility] [address] [id number] [place] [address] Sep, [facility] [place] [facility] [address] [id number] [place] [address] Sep, [facility] [place] [facility] [address] [id number] [place] [address] Sep, [facility] [place] [facility] [address] [id number] [place] [address] Sep, [facility] [place] [facility] [address] [id number] [place] [address] Sep, [facility] [place] [facility] [address] [id number] [place] [address] Aug, [facility] [place] [facility] [address] [id number] [place] [address] Aug, [facility] [place] [facility] [address] [id number] [place] [address] Aug, [facility] [place] [facility] [address] [id number] [place] [address] Aug, [facility] [place] [facility] [address] [id number] [place] [address] Aug, [facility] [place] [facility] [address] [id number] [place] [address] Aug, [facility] [place] [facility] [address] [id number] [place] [address] Jul, [facility] [place] [facility] [address] [id number] [place] [address] Jul, [facility] [place] [facility] [address] [id number] [place] [address] Jun, [facility] [place] [facility] [address] [id number] [place] [address] Jun, [facility] [place] [facility] [address] [id number] [place] [address] Jun, [facility] [place] [facility] [address] [id number] [place] [address] Jun, [facility] [place] [facility] [address] [id number] [place] [address] Jun, [facility] [place] [facility] [address] [id number], [place] [address] Jun, [facility] [place] [facility] [address] [id number], [place] [address] May, [facility] [place] [facility] [address] [id number] [place] [address] May, [facility] [place] [facility] [address] [id number], [place] [address] May, [facility] [place] [facility] [address] [id number] [place] [address] May, [facility] [place] [facility] [address] [id number] [place] [address] February, [facility] [address] [id number] [place] [address] February, [facility] [address] [id number] [place] [address] Nov, [facility] [address] [id number] [place] [address] Nov, [facility] [address] [id number] [place] [address] Jul, [facility] [address] [id number] [place] [address] Jul, [facility] [address] [id number] [place] [address] Jul, [facility] [address] [id number] [place] [address] Jul, [facility] [address] [id number] [place] [address] May, [facility] [address] [id number] [place] [address] May, [facility] [address] [id number] [place] [address] February, [facility] [place] [facility] [address] [id number] [place] [address] Dec, [facility] [place] [facility] [address] [id number] [place] [address] Dec, [facility] [place] [facility] [address] [id number] [place] [address] Dec, [facility] [place] [facility] [address] [id number] [place] [address] Nov, [facility] [place] [facility] [address] [id number] [place] [address] Oct, [facility] [place] [facility] [address] [id number] [place] [address] Sep, [facility] [place] [facility] [address] [id number] [place] [address] Sep, [facility] [place] [facility] [address] [id number] [place] [address] Aug, [facility] [place] [facility] [address] [id number] [place] [address] Aug, [facility] [place] [facility] [address] [id number] [place] [address] Jul, [facility] [place] [facility] [address] [id number] [place] [address] Jul, [facility] [place] [facility] [address] [id number] [place] [address] Jul, [facility] [place] [facility] [address] [id number] [place] [address] Apr, [facility] [place] [facility] [address] [id number] [place] [address] Apr, [facility] [place] [facility] [address] [facility] [address] [id number] [place] [address] Mar, [facility] [place] [facility] [address] [id number] [place] [address] February, [facility] [place] [facility] [address] [id number], [place] [address] Jan, [facility] [place] [facility] [address] [id number] [place] [address] Jan, [facility] [place] [facility] [address] [id number] [place] [address] Dec, [facility] [place] [facility] [address] [id number] [place] [address] Nov, [facility] [place] [facility] [address] [id number], [place] [address] 07 Nov, 2011 [facility] [id number] [address] Sep, [facility] [id number] [address] Aug, [facility] [id number] [address] Jul, [facility] [address], [place] [address] Sep, [facility] [address], [place] [address] Sep, [facility] [address], [place] [address] Aug, [facility] [id number] [address] Aug, [facility] [id number] [address] Jul, IMMUNIZATIONS No Known Immunizations SOCIAL HISTORY [...]
--- OUTSIDE RECORDS SUMMARY | 2019-04-20 14:07 | XMS REPORT ---
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 Name Role Phone ANIRUDH ROSE CP Unavailable Allergies, Adverse Reactions, Alerts Substance Reaction Event Type Isabella Carbonate itching Drug Allergy Abilify 5 Mg Tablet increased [...] PTSD (post-traumatic stress disorder) F43.10 Active Problem Unspecified anemia 285.9 Active Problem Major depressive disorder, recurrent episode, moderate 296.32 Active Problem Nondependent cocaine abuse, unspecified 305.60 Active Problem Bipolar I disorder, most recent episode (or current) mixed, moderate 296.62 Active Medications Medication Code System Code Instructions Start Date End Date Status Dosage Natazia [facility] [address]-88 3/2-2/2-3/1 MG Orally Once a day 1 tablet MedroxyPROGESTERone Acetate [facility] [address]-20 10 mg Orally Once a day 1 tab Seroquel XR [facility] [address]-68 150 MG Orally Once a day at hs 2 tablets Cl[address]azepam [facility] 98393591907 1MG Orally 1 tab in the AM and 2 tabs at HS 1 tablet Multi Complete [facility] [address] Orally not defined Vitamin D [facility] [address]-42 1000 UNIT Orally Once a day 1 tablet Trazodone HCl [facility] [id number] 100MG Take 2 tablets at bedtime for sleep TAKE ONE Topamax [facility] 64245088605 100MG Orally Twice a day 1 tablet midodrine ND 0 10 mg Sep 07, 2012 1 Tablet by Oral route 3 times per day Oxybutynin Chloride ER [facility] [address]-35 10 MG Orally Once a day 1 tablet Procedures Procedure Coding System Code Date Office Visit, Est Pt., Level 3 CPT-4 10909 Jul 23, 2015 [facility] VISIT ESTABLISHED PATIENT CPT-4 G0467 Jul 23, 2015 Vital Signs Date/Time: Jul 23, 2015 Cardiac Monitoring Heart Rate 88 bpm Weight 143.5 lbs Height 60 in BMI 28.02 Index Blood Pressure Diastolic 80 mmHg Blood Pressure Systolic 110 mmHg Results No Known Results Summary Purpose [employer] Submission
--- OUTSIDE RECORDS SUMMARY | 2019-04-20 14:07 | XMS REPORT ---
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 Hammer Smith Name Role Phone ANIRUDH ROSE CP Unavailable [...] Start Date End Date Status Dosage Clonazepam [facility] 73539588038 1MG Orally 1 tab in the AM and 2 tabs at HS 1 tablet Results No Known Results Summary Purpose [employer] Submission
--- OUTSIDE RECORDS SUMMARY | 2019-04-20 14:07 | XMS REPORT ---
Author Author MILTON ANIRUDH [facility] Address [address] [place] [address] Care Team Providers Care Financial Foundations Representative Name Role Phone MILTON ANIRUDH Unavailable PROBLEMS Type Condition ICD9-CM Code [id number] Code Onset Dates Condition Status SNOMED Code Problem Major depressive disorder, recurrent episode, moderate 296.32 Active 81457477 Problem Bipolar disorder current episode depressed F31.30 Active 179771619 Problem Moderate mixed bipolar I disorder F31.62 Active 37786050 Problem Nondependent cocaine abuse, unspecified 305.60 Active 897242321 Problem Other and unspecified bipolar disorders 296.89 Active 45575909 Problem Unspecified anemia 285.9 Active 615274228 Problem Bipolar affective disorder, current episode hypomanic F31.0 Active 48918140 Problem Bipolar disorder in partial remission, most recent episode unspecified type F31.70 Active 810530934 Problem Long-term use of high-risk medication Z79.899 Active 721146619 Problem Bipolar disorder, current episode mixed, severe, without psychotic features F31.63 Active 261492549 Problem ADHD (attention deficit hyperactivity disorder), inattentive type F90.0 Active 83843544 Problem LUCY (generalized anxiety disorder) F41.1 Active 58066006 ALLERGIES No Information ENCOUNTERS Encounter Location Date Diagnosis [place] [address] [id number] [address] Mar, [facility] [address] [id number], [place] [address] Jan, [facility] [address] [id number] [address] Dec, [facility] [address] [id number] [address] Dec, Bipolar affective disorder, current episode hypomanic F31.0 ; Long- term use of high-risk medication Z79.899 and LUCY (generalized anxiety disorder) F41.1 [facility] [address] [address] Nov, [facility] [id number] [place] [address] Oct, [place] [id number] [place] [address] Sep, Bipolar disorder in partial remission, most recent episode unspecified type F31.70 ; ADHD (attention deficit hyperactivity disorder), inattentive type F90.0 and LUCY (generalized anxiety disorder) F41.1 [place] [id number] [place] [address] Sep, [place] [id number] [place] [address] Aug, Bipolar disorder in partial remission, most recent episode unspecified type F31.70 ; Long-term use of high-risk medication Z79.899 ; ADHD (attention deficit hyperactivity disorder), inattentive type F90.0 and LUCY (generalized anxiety disorder) F41.1 [place] [id number] [place] [address] Aug, [place] [id number] [place] [address] Jul, [facility] [id number] [place] [address] May, Visit for TB skin test Z11.1 [place] [id number] [place] [address] May, [place] [id number] [place] [address] Apr, Moderate mixed bipolar I disorder F31.62 and PTSD (post-traumatic stress disorder) F43.10 [facility] [place] [id number] [place] [address] Mar, [facility] [address] [address] Jan, Moderate mixed bipolar I disorder F31.62 ; PTSD (post-traumatic stress disorder) F43.10 and Long-term use of high-risk medication Z79.899 [facility] [address] [address] Oct, Moderate mixed bipolar I disorder F31.62 and PTSD (post-traumatic stress disorder) F43.10 [facility] [address] [address] Sep, PTSD (post-traumatic stress disorder) F43.10 and Moderate mixed bipolar I disorder F31.62 [facility] [address] [address] Sep, [facility] [address] [id number] [address] Sep, [facility] [address] [address] Aug, PTSD (post-traumatic stress disorder) F43.10 and Moderate mixed bipolar I disorder F31.62 [facility] [address] [address] Jul, [facility] [address] [address] Jul, [facility] [address] [address] Jul, PTSD (post-traumatic stress disorder) F43.10 and Moderate mixed bipolar I disorder F31.62 [facility] [address] [address] May, [facility] [id number] [address] May, [facility] [id number] [place] [address] Apr, [facility] [address] [address] Apr, [facility] [address] [place] [address] Apr, PTSD (post-traumatic stress disorder) F43.10 and Moderate mixed bipolar I disorder F31.62 [facility] [address] [place] [address] Mar, [facility] [address] [place] [address] Mar, [facility] [id number] [place] [address] Mar, [facility] [address] [id number] [address] February, [facility] [id number] [place] [address] February, [facility] [address] [address] Jan, Moderate mixed bipolar I disorder F31.62 and PTSD (post-traumatic stress disorder) F43.10 [facility] [address] [address] Jan, [facility] [address] [address] 24 Dec, 2015 Moderate mixed bipolar I disorder F31.62 and PTSD (post-traumatic stress disorder) F43.10 [facility] [address] [address] Dec, PTSD (post-traumatic stress disorder) F43.10 and Bipolar disorder current episode depressed F31.30 [facility] [address] [address] Sep, [facility] [id number] [address] Sep, Moderate mixed bipolar I disorder F31.62 and PTSD (post-traumatic stress disorder) F43.10 [facility] [id number] [place] [address] Aug, PTSD (post-traumatic stress disorder) F43.10 and Moderate mixed bipolar I disorder F31.62 [facility] [id number] [place] [address] Jul, PTSD (post-traumatic stress disorder) F43.10 and Moderate mixed bipolar I disorder F31.62 [place] [id number] [place] [address] May, [place] [id number] [place] [address] May, Bipolar I disorder, most recent episode (or current) mixed, in partial or unspecified remission 296.65 and PTSD (post-traumatic stress disorder) 309.81 [facility] [id number] [place] [address] Apr, Bipolar I disorder, most recent episode (or current) mixed, moderate 296.62 and Posttraumatic stress disorder 309.81 [facility] [address] [place] [address] Mar, [facility] [id number] [place] [address] February, [facility] [id number] [place] [address] February, [facility] [id number] [place] [address] Jan, [facility] [id number] [place] [address] Jan, [facility] [id number] [place] [address] Dec, [facility] [place] [facility] [address] [id number] [place] [address] Dec, [facility] [place] [facility] [address] [id number] [place] [address] Dec, [facility] [place] [facility] [address] [id number] [place] [address] Dec, [facility] [place] [facility] [address] [id number] [place] [address] Nov, [facility] [place] [facility] [address] [id number] [place] [address] Nov, [facility] [place] [facility] [address] [id number] [place] [address] Nov, [facility] [place] [facility] [address] [id number] [place] [address] Nov, [facility] [place] [facility] [address] [id number] [place] [address] Nov, [facility] [place] [facility] [address] [id number] [place] [address] Oct, [facility] [place] [facility] [address] [id number] [place] [address] Oct, [facility] [place] [facility] [address] [id number] [place] [address] Oct, [facility] [place] [facility] [address] [id number] [place] [address] Oct, [facility] [place] [facility] [address] [id number] [place] [address] Oct, [facility] [place] [facility] [address] [id number] [place] [address] Oct, [facility] [place] [facility] [address] [id number] [place] [address] Sep, [facility] [place] [facility] [address] [id number] [place] [address] Sep, [facility] [place] [facility] [address] [id number] [place] [address] Sep, [facility] [place] [facility] [address] [id number] [place] [address] Sep, [facility] [place] [facility] [address] [id number] [place] [address] Sep, [facility] [place] [facility] [address] [id number] [place] [address] Sep, [facility] [place] [facility] [address] [id number] [place] [address] Sep, [facility] [place] [facility] [address] [id number] [place] [address] Sep, [facility] [place] [facility] [address] [id number] [place] [address] Sep, [facility] [place] [facility] [address] [id number] [place] [address] Sep, [facility] [place] [facility] [address] [id number] [place] [address] Aug, [facility] [place] [facility] [address] [id number] [place] [address] Aug, [facility] [place] [facility] [address] [id number] [place] [address] Aug, [facility] [place] [facility] [address] [id number] [place] [address] Aug, [facility] [place] [facility] [address] [id number] [place] [address] Aug, [facility] [place] [facility] [address] [id number] [place] [address] Aug, [facility] [place] [facility] [address] [id number] [place] [address] Jul, [facility] [place] [facility] [address] [id number] [place] [address] Jul, [facility] [place] [facility] [address] [id number] [place] [address] Jun, [facility] [place] [facility] [address] [id number] [place] [address] Jun, [facility] [place] [facility] [address] [id number] [place] [address] Jun, [facility] [place] [facility] [address] [id number] [place] [address] Jun, [facility] [place] [facility] [address] [id number] [place] [address] Jun, [facility] [place] [facility] [address] [id number] [place] [address] Jun, [facility] [place] [facility] [address] [id number] [place] [address] May, [facility] [place] [facility] [address] [id number] [place] [address] May, [facility] [place] [facility] [address] [id number] [place] [address] May, [facility] [place] [facility] [address] [id number] [place] [address] May, [facility] [place] [facility] [address] [id number] [place] [address] February, [facility] [place] [facility] [address] [id number] [place] [address] February, [facility] [place] [facility] [address] [id number] [place] [address] Nov, [facility] [place] [facility] [address] [id number] [place] [address] Nov, [facility] [place] [facility] [address] [id number] [place] [address] Jul, [facility] [place] [facility] [address] [id number] [place] [address] Jul, [facility] [place] [facility] [address] [id number] [place] [address] Jul, [facility] [place] [facility] [address] [id number] [place] [address] Jul, [facility] [place] [facility] [address] [id number] [place] [address] May, [facility] [place] [facility] [address] [id number] [place] [address] May, [facility] [place] [facility] [address] [id number] [place] [address] February, [facility] [place] [facility] [address] [id number] [place] [address] Dec, [facility] [place] [facility] [address] [id number] [place] [address] Dec, [facility] [place] [facility] [address] [id number] [place] [address] Dec, [facility] [place] [facility] [address] [id number] [place] [address] Nov, [facility] [place] [facility] [address] [id number], [place] [address] Oct, [facility] [place] [facility] [address] [id number], [place] [address] Sep, [facility] [place] [facility] [address] [id number] [place] [address] Sep, [facility] [place] [facility] [address] [id number] [place] [address] Aug, [facility] [place] [facility] [address] [id number] [place] [address] Aug, [facility] [place] [facility] [address] [id number] [place] [address] Jul, [facility] [address] [id number] [place] [address] Jul, [facility] [place] [facility] [address] [id number] [place] [address] Jul, [facility] [address] [id number] [place] [address] Apr, [facility] [place] [facility] [address] [id number] [place] [address] Apr, [facility] [address] [id number] [place] [address] Mar, [facility] [place] [facility] [address] [id number] [place] [address] February, [facility] [address] [id number] [place] [address] Jan, [facility] [address] [id number] [place] [address] Jan, [facility] [place] [facility] [address] [id number] [place] [address] Dec, [facility] [address] [id number] [place] [address] Nov, [facility] [place] [facility] [address] [id number] [place] [address] Nov, [facility] [place] [facility] [address] [id number] [place] [address] Sep, [facility] [place] [facility] [address] [id number] [place] [address] Aug, [facility] [place] [facility] [address] [id number] [place] [address] Jul, [facility] [place] [facility] [address] [id number] [place] [address] Sep, [facility] [address] [id number] [place] [address] Sep, [facility] [address] [id number], [place] [address] Aug, [facility] [address] [id number], [place] [address] Aug, [facility] [address] [id number], [place] [address] Jul, IMMUNIZATIONS No Known Immunizations SOCIAL HISTORY Never Assessed REASON FOR VISIT klonolaurent refill PLAN OF CARE VITAL SIGNS MEDICATIONS [...]
--- OUTSIDE RECORDS SUMMARY | 2019-04-20 14:07 | XMS REPORT ---
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 Advanced Practice Provider Name Role Phone ANIRUDH ROSE CP Unavailable Allergies, Adverse Reactions, Alerts Substance Reaction Event Type Macrodantin hives Drug Allergy [place] Carbonate itching Drug Allergy Fentanyl blister Drug Allergy Abilify 5 Mg Tablet increased glucose Non Drug Allergy Opioids - Morphine Analogues Info Not Available Non Drug Allergy Problems Problem Type Condition Code Onset Dates Condition Status Assessment Moderate mixed bipolar I disorder F31.62 Active Assessment PTSD (post-traumatic stress disorder) F43.10 Active Problem PTSD (post-traumatic stress disorder) F43.10 [...] Instructions Start Date End Date Status Dosage Topamax [facility] 42048853733 100MG Orally Twice a day 1 tablet Seroquel XR [facility] 73749565675 300MG Orally Once a day at hs 2 tablets Vitamin D [facility] [address]-94 1000 UNIT Orally Once a day 1 tablet Multi Complete [facility] [address] Orally not defined midodrine [facility] 0 10 mg Sep 07, 2012 1 Tablet by Oral route 3 times per day Clonazepam [facility] 62147866736 1MG Orally 1 tab in the AM and 2 tabs at HS 1 tablet Oxybutynin Chloride ER [facility] [address]-64 10 MG Orally Once a day 1 tablet Trazodone HCl [facility] 43088040540 100MG Orally at bedtime for sleep 1 or 2 tabs N[place]zia [facility] [address]-99 3/2-2/2-3/1 MG Orally Once a day 1 tablet Cymbalta [facility] [address]-67 60 MG Orally Once a day December 24, 2015 1 capsule Procedures Procedure Coding System Code Date MH Office Visit, Est Pt., Level 3 CPT-4 66839 February 02, 2016 No Charge CPT-4 65582 February 02, 2016 [facility] VISIT ESTABLISHED PATIENT CPT-4 G0467 February 02, 2016 Vital Signs Date/Time: February 02, 2016 Cardiac Monitoring Heart Rate 88 bpm Weight 143.4 lbs Height 60 in BMI 28.00 Index Blood Pressure Diastolic 68 mmHg Blood Pressure Systolic 108 mmHg Results No Known Results Summary Purpose [employer] Submission
--- OUTSIDE RECORDS SUMMARY | 2019-04-20 14:07 | XMS REPORT ---
Author Author MILTON ANIRUDH 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 Active 246194140 Problem Other and unspecified bipolar disorders 296.89 Active 48347880 Problem Unspecified anemia 285.9 Active 798995782 Problem Bipolar affective disorder, current episode hypomanic F31.0 Active 73124680 Problem Bipolar disorder in partial remission, most recent episode unspecified type F31.70 Active 239066210 Problem Long-term use of high-risk medication Z79.899 Active 284030254 Problem Bipolar disorder, current episode mixed, severe, without psychotic features F31.63 Active 434771991 Problem ADHD (attention deficit hyperactivity disorder), inattentive type F90.0 Active 62999645 Problem LUCY (generalized anxiety disorder) F41.1 Active 82848777 ALLERGIES No Information ENCOUNTERS Encounter Location Date Diagnosis [facility] [address] [facility] [id number], [place] [address] Mar, [facility] [address] [facility] [id number], [place] [address] Dec, [facility] [address] [facility] [id number], [place] [address] Dec, Bipolar affective disorder, current episode hypomanic F31.0 ; Long- term use of high-risk medication Z79.899 and LUCY (generalized anxiety disorder) F41.1 [place] [address], [place] [address] Nov, [facility] ([facility] [address] [place] [address] Oct, [facility] [address], [place] [address] Sep, Bipolar disorder in partial remission, most recent episode unspecified type F31.70 ; ADHD (attention deficit hyperactivity disorder), inattentive type F90.0 and LUCY (generalized anxiety disorder) F41.1 [place] [address], [place] [address] Sep, [place] [address] [place] [address] Aug, Bipolar disorder in partial remission, most recent episode unspecified type F31.70 ; Long-term use of high-risk medication Z79.899 ; ADHD (attention deficit hyperactivity disorder), inattentive type F90.0 and LUCY (generalized anxiety disorder) F41.1 [place] [address], [place] [address] Aug, [place] [address] [place] [id number] [place] [address] Jul, [place] [address], [place] [address] May, Visit for TB skin test Z11.1 [place] [address], [place] [address] May, [facility] ([facility] [address], [place] [address] Apr, Moderate mixed bipolar I disorder F31.62 and PTSD (post-traumatic stress disorder) F43.10 [facility] [address], [place] [address] Mar, [facility] [address] [place] [id number] [place] [address] Jan, Moderate mixed bipolar I disorder F31.62 ; PTSD (post-traumatic stress disorder) F43.10 and Long-term use of high-risk medication Z79.899 [facility] ([facility] [address] [place] [address] Oct, Moderate mixed bipolar I disorder F31.62 and PTSD (post-traumatic stress disorder) F43.10 [facility] [address] [place] [id number] [place] [address] Sep, PTSD (post-traumatic stress disorder) F43.10 and Moderate mixed bipolar I disorder F31.62 [facility] [address] [place] [id number] [place] [address] Sep, [facility] [address] [place] [id number] [place] [address] Sep, [facility] [address] [place] [address] [id number] [place] [address] Aug, PTSD (post-traumatic stress disorder) F43.10 and Moderate mixed bipolar I disorder F31.62 [facility] [address] [place] [id number] [place] [address] Jul, [facility] [address] [place] [id number] [place] [address] Jul, [facility] [address] [place] [address] Jul, PTSD (post-traumatic stress disorder) F43.10 and Moderate mixed bipolar I disorder F31.62 [facility] [address], [place] [address] May, [facility] [address] [place] [id number] [place] [address] May, [facility] [address] [place] [id number] [place] [address] Apr, [facility] [address] [place] [id number] [place] [address] Apr, [facility] [address], [place] [address] Apr, PTSD (post-traumatic stress disorder) F43.10 and Moderate mixed bipolar I disorder F31.62 [facility] [address], [place] [address] Mar, [facility] [address] [place] [id number] [place] [address] Mar, [facility] [address], [place] [address] Mar, [facility] [address] [place] [address] February, [facility] [address], [place] [address] February, [facility] [address] [place] [id number] [place] [address] Jan, Moderate mixed bipolar I disorder F31.62 and PTSD (post-traumatic stress disorder) F43.10 [facility] [address], [place] [address] Jan, [facility] [address], [place] [address] 24 Dec, 2015 Moderate mixed bipolar I disorder F31.62 and PTSD (post-traumatic stress disorder) F43.10 [facility] ([facility] [address], [place] [address] Dec, PTSD (post-traumatic stress disorder) F43.10 and Bipolar disorder current episode depressed F31.30 [facility] [address], [place] [address] Sep, [facility] [address], [place] [address] Sep, Moderate mixed bipolar I disorder F31.62 and PTSD (post-traumatic stress disorder) F43.10 [facility] [address] [place] [address] Aug, PTSD (post-traumatic stress disorder) F43.10 and Moderate mixed bipolar I disorder F31.62 [facility] [address] [place] [id number] [place] [address] Jul, PTSD (post-traumatic stress disorder) F43.10 and Moderate mixed bipolar I disorder F31.62 [facility] [address] [place] [id number] [place] [address] May, [facility] [address] [place] [id number] [place] [address] May, Bipolar I disorder, most recent episode (or current) mixed, in partial or unspecified remission 296.65 and PTSD (post-traumatic stress disorder) 309.81 [facility] [address] [place] [id number] [place] [address] Apr, Bipolar I disorder, most recent episode (or current) mixed, moderate 296.62 and Posttraumatic stress disorder 309.81 [facility] [address] [place] [id number] [place] [address] Mar, [facility] [address] [place] [id number] [place] [address] February, [facility] [address] [place] [id number] [place] [address] February, [facility] [address] [place] [id number] [place] [address] Jan, [facility] [address] [place] [id number] [place] [address] Jan, [facility] [address] [place] [id number] [place] [address] Dec, [facility] [address] [place] [id number] [place] [address] Dec, [facility] [place] [facility] [address] [id number] [place] [address] Dec, [facility] [place] [facility] [address] [id number] [place] [address] Dec, [facility] [place] [facility] [address] [id number] [place] [address] Nov, [facility] [place] [facility] [address] [id number] [place] [address] Nov, [facility] [place] [facility] [address] [id number] [place] [address] Nov, [facility] [place] [facility] [address] [id number] [place] [address] Nov, [facility] [place] [facility] [address] [id number] [place] [address] Nov, [facility] [place] [facility] [address] [id number] [place] [address] Oct, [facility] [place] [facility] [address] [id number] [place] [address] Oct, [facility] [place] [facility] [address] [id number] [place] [address] Oct, [facility] [place] [facility] [address] [id number] [place] [address] Oct, [facility] [place] [facility] [address] [id number] [place] [address] Oct, [facility] [place] [facility] [address] [id number] [place] [address] Oct, [facility] [place] [facility] [address] [id number] [place] [address] Sep, [facility] [place] [facility] [address] [id number] [place] [address] Sep, [facility] [place] [facility] [address] [id number] [place] [address] Sep, [facility] [place] [facility] [address] [id number] [place] [address] Sep, [facility] [place] [facility] [address] [id number] [place] [address] Sep, [facility] [place] [facility] [address] [id number] [place] [address] Sep, [facility] [place] [facility] [address] [id number] [place] [address] Sep, [facility] [place] [facility] [address] [id number] [place] [address] Sep, [facility] [place] [facility] [address] [id number] [place] [address] Sep, [facility] [place] [facility] [address] [id number] [place] [address] Sep, [facility] [place] [facility] [address] [id number] [place] [address] Aug, [facility] [place] [facility] [address] [id number] [place] [address] Aug, [facility] [place] [facility] [address] [id number] [place] [address] Aug, [facility] [place] [facility] [address] [id number], [place] [address] Aug, [facility] [place] [facility] [address] [id number], [place] [address] Aug, [facility] [place] [facility] [address] [id number] [place] [address] Aug, [facility] [place] [facility] [address] [id number] [place] [address] Jul, [facility] [place] [facility] [address] [id number] [place] [address] Jul, [facility] [place] [facility] [address] [id number] [place] [address] Jun, [facility] [place] [facility] [address] [id number] [place] [address] Jun, [facility] [place] [facility] [address] [id number] [place] [address] Jun, [facility] [place] [facility] [address] [id number] [place] [address] Jun, [facility] [place] [facility] [address] [id number] [place] [address] Jun, [facility] [place] [facility] [address] [id number] [place] [address] Jun, [facility] [place] [facility] [address] [id number] [place] [address] May, [facility] [place] [facility] [address] [id number] [place] [address] May, [facility] [place] [facility] [address] [id number] [place] [address] May, [facility] [place] [facility] [address] [id number] [place] [address] May, [facility] [place] [facility] [address] [id number] [place] [address] February, [facility] [place] [facility] [address] [id number] [place] [address] February, [facility] [place] [facility] [address] [id number] [place] [address] Nov, [facility] [place] [facility] [address] [id number] [place] [address] Nov, [facility] [place] [facility] [address] [id number] [place] [address] Jul, [facility] [place] [facility] [address] [id number] [place] [address] Jul, [facility] [address] [id number] [place] [address] Jul, [facility] [place] [facility] [address] [id number] [place] [address] Jul, [facility] [place] [facility] [address] [id number] [place] [address] May, [facility] [place] [facility] [address] [id number] [place] [address] May, [facility] [place] [facility] [address] [id number] [place] [address] February, [facility] [place] [facility] [address] [id number] [place] [address] Dec, [facility] [place] [facility] [address] [id number] [place] [address] Dec, [facility] [place] [facility] [address] [id number] [place] [address] Dec, [facility] [place] [facility] [address] [id number] [place] [address] Nov, [facility] [place] [facility] [address] [id number] [place] [address] Oct, [facility] [place] [facility] [address] [id number], [place] [address] Sep, [facility] [place] [facility] [address] [id number], [place] [address] Sep, [facility] [place] [facility] [address] [id number] [place] [address] Aug, [facility] [place] [facility] [address] [id number] [place] [address] Aug, [facility] [place] [facility] [address] [id number] [place] [address] Jul, [facility] [place] [facility] [address] [id number] [place] [address] Jul, [facility] [address] [id number] [place] [address] Jul, [facility] [place] [facility] [address] [id number] [place] [address] Apr, [facility] [address] [id number] [place] [address] Apr, [facility] [place] [facility] [address] [id number] [place] [address] Mar, [facility] [address] [id number] [place] [address] February, [facility] [place] [facility] [address] [id number] [place] [address] Jan, [facility] [address] [id number] [place] [address] Jan, [facility] [address] [id number] [place] [address] Dec, [facility] [place] [facility] [address] [id number] [place] [address] Nov, [facility] [address] [facility] [id number] [place] [address] Nov, [facility] [address] [id number] [place] [address] Sep, [facility] [place] [facility] [address] [id number] [place] [address] Aug, [facility] [place] [facility] [address] [id number] [place] [address] Jul, [facility] [place] [facility] [address] [id number] [place] [address] Sep, [facility] [place] [facility] [address] [id number] [place] [address] Sep, [facility] [address] [facility] [id number] [place] [address] Aug, [facility] [address] [facility] [id number] [place] [address] Aug, [facility] [address] [facility] [id number] [place] [address] Jul, IMMUNIZATIONS No Known Immunizations SOCIAL HISTORY [...]
--- OUTSIDE RECORDS SUMMARY | 2019-04-20 14:08 | XMS REPORT ---
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 Field Assistant Name Role Phone ANIRUDH ROSE CP Unavailable [...] Start Date End Date Status Dosage Clonazepam [facility] [id number] 1MG Orally 1 tab in the AM and 2 tabs at HS 1 tablet Results No Known Results Summary Purpose [employer] Submission
--- OUTSIDE RECORDS SUMMARY | 2019-04-20 14:08 | XMS REPORT ---
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 Business Systems Advisor Name Role Phone ANIRUDH ROSE CP Unavailable Allergies No Known Allergies Problems Problem Type Condition ICD-9 Code Onset Dates Condition Status Problem Nondependent cocaine abuse, unspecified 305.60 Active Problem Bipolar I disorder, most recent episode (or current) mixed, moderate 296.62 Active Problem Other and unspecified bipolar disorders 296.89 Active Problem Unspecified anemia 285.9 Active Problem Major depressive disorder, recurrent episode, moderate 296.32 Active Medications Medication Code System Code Instructions Start Date End Date Status Dosage Clonazepam [facility] [id number] 1MG Orally 3 times a day as needed for anxiety 1 tablet Results No Known Results Summary Purpose [employer] Submission
--- OUTSIDE RECORDS SUMMARY | 2019-04-20 14:08 | XMS REPORT ---
Author Author ANIRUDH ROSE Organization [facility] Address [address] [place] [address] Care Team Providers Care Visual Merchandising Specialist Name Role Phone ANIRUDH ROSE Unavailable PROBLEMS Type Condition ICD9-CM Code YET23-AG Code Onset Dates Condition Status SNOMED Code Problem Unspecified anemia 285.9 Active 604715072 Problem Moderate mixed bipolar I disorder F31.62 Active 27810706 Problem Major depressive disorder, recurrent episode, moderate 296.32 Active 92693707 Problem Nondependent cocaine abuse, unspecified 305.60 Active 749654879 Problem Other and unspecified bipolar disorders 296.89 Active 52961756 Problem LUCY (generalized anxiety disorder) F41.1 Active 23789401 Problem ADHD (attention deficit hyperactivity disorder), inattentive type F90.0 Active 98989314 Problem Bipolar disorder, current episode mixed, severe, without psychotic features F31.63 Active 282063466 Problem Bipolar disorder current episode depressed F31.30 Active 118340163 Problem Bipolar disorder in partial remission, most recent episode unspecified type F31.70 Active 326484830 Problem Long-term use of high-risk medication Z79.899 Active 381565376 ALLERGIES No Information SOCIAL HISTORY Never Assessed PLAN OF CARE VITAL SIGNS MEDICATIONS Medication Instructions Dosage Frequency Start Date End Date Duration Status Clonazepam 1MG Orally 1 tab in the AM and 2 tabs at HS 1 tablet Active RESULTS No Results PROCEDURES No Known procedures IMMUNIZATIONS No Known Immunizations MEDICAL (GENERAL) HISTORY Type Description Date Medical [...]
--- OUTSIDE RECORDS SUMMARY | 2019-04-20 14:08 | XMS REPORT ---
Author Author ANIRUDH ROSE Organization [facility] Address [address] [place] [address] Care Team Providers Care Supervisor Ovens Name Role Phone ANIRUDH ROSE Unavailable PROBLEMS Type Condition ICD9-CM Code ATK67-UK Code Onset Dates Condition Status SNOMED Code Problem Major depressive disorder, recurrent episode, moderate 296.32 Active 26631113 Problem Nondependent cocaine abuse, unspecified 305.60 Active 796753630 Problem Unspecified anemia 285.9 Active 550675599 Problem Long-term use of high-risk medication Z79.899 Active 210419216 Problem Bipolar disorder, current episode mixed, severe, without psychotic features F31.63 Active 967164275 Problem Moderate mixed bipolar I disorder F31.62 Active 18132759 Problem Other and unspecified bipolar disorders 296.89 Active 02419962 Problem Bipolar disorder current episode depressed F31.30 Active 705106797 Problem PTSD (post-traumatic stress disorder) F43.10 Active 74666846 ALLERGIES Substance Reaction Event Type Date Status Macrodantin hives Drug Allergy Sep, Active [place] Carbonate itching Drug Allergy Sep, Active Fentanyl blister Drug Allergy Sep, Active Abilify 5 Mg Tablet increased glucose Non Drug Allergy Sep, Active Opioids - Morphine Analogues Unknown Non Drug Allergy Sep, Active SOCIAL HISTORY No smoking Hx information available PLAN OF CARE Activity Details Follow Up 4 Weeks. Reason: VITAL SIGNS Height 60 in 2016-09-27 Weight 157.3 lbs 2016-09-27 Heart Rate 96 bpm 2016-09-27 Respiratory Rate 20 2016-09-27 BMI 30.72 kg/m2 2016-09-27 Blood pressure systolic 118 mmHg 2016-09-27 Blood pressure diastolic 83 mmHg 2016-09-27 MEDICATIONS Medication Instructions Dosage Frequency Start Date End Date Duration Status Oxybutynin Chloride ER 10 MG Orally Once a day 1 tablet 24h Active Latuda 60 mg Orally in the evening 1 tablet with 350kcal Jul, Active Fetzima 40 mg Orally Once a day 1 capsule 24h 28 Mar, 2016 Active Natazia 3/2-2/2-3/1 MG Orally Once a day 1 tablet 24h Active Vitamin D 5000 Orally Once a day 1 tablet 24h Oct, 30 days Active midodrine 10 mg 1 Tablet by Oral route 3 times per day Aug, Active Multi Complete Active Topamax 100MG Orally Twice a day 1 tablet 12h Active Trazodone HCl 100MG Orally at bedtime for sleep 2 tabs Active Clonazepam 1MG Orally 1 tab in the AM and 2 tabs at HS 1 tablet Active RESULTS No Results PROCEDURES Procedure Date Ordered Related Diagnosis Body Site [facility] VISIT ESTABLISHED PATIENT Sep 27, 2016 Office Visit, Est Pt., Level 4 Sep 27, 2016 IMMUNIZATIONS No Known Immunizations
--- OUTSIDE RECORDS SUMMARY | 2019-04-20 14:08 | XMS REPORT ---
Author Author ANIRUDH ROSE [facility] Address [address] [place] [address] Care Team Providers Care Transplant Surgeon Name Role Phone ANIRUDH ROSE Unavailable PROBLEMS Type Condition ICD9-CM Code [id number] Code Onset Dates Condition Status SNOMED Code Problem Nondependent cocaine abuse, unspecified 305.60 Active 352689610 Problem Unspecified anemia 285.9 Active 193751107 Problem Other and unspecified bipolar disorders 296.89 Active 99227877 Problem Long-term use of high-risk medication Z79.899 Active 402855752 Problem Bipolar disorder, current episode mixed, severe, without psychotic features F31.63 Active 963564561 Problem Moderate mixed bipolar I disorder F31.62 Active 56234080 Problem Major depressive disorder, recurrent episode, moderate 296.32 Active 57957437 Problem Bipolar disorder current episode depressed F31.30 Active 371235147 Problem PTSD (post-traumatic stress disorder) F43.10 Active 55353871 ALLERGIES Substance Reaction Event Type Date Status Macrodantin hives Drug Allergy Oct, Active [place] Carbonate itching Drug Allergy Oct, Active Fentanyl blister Drug Allergy Oct, Active Abilify 5 Mg Tablet increased glucose Non Drug Allergy Oct, Active Opioids - Morphine Analogues Unknown Non Drug Allergy Oct, Active SOCIAL HISTORY No smoking Hx information available PLAN OF CARE Activity Details Follow Up 3 Months Reason: VITAL SIGNS Height 60 in 2016-11-03 Weight 150.3 lbs 2016-11-03 Heart Rate 136 bpm 2016-11-03 Respiratory Rate 22 2016-11-03 BMI 29.35 kg/m2 2016-11-03 Blood pressure systolic 119 mmHg 2016-11-03 Blood pressure diastolic 73 mmHg 2016-11-03 MEDICATIONS Medication Instructions Dosage Frequency Start Date End Date Duration Status Clonazepam 1MG Orally 1 tab in the AM and 2 tabs at HS 1 tablet Active Topamax 100MG Orally Twice a day 1 tablet 12h Active Trazodone HCl 100MG Orally at bedtime for sleep 2 tabs Active Fetzima 40 mg Orally Once a day 1 capsule 24h Mar, Active Latuda 60 mg Orally in the evening 1 tablet with 350kcal Jul, Active Multi Complete Active Oxybutynin Chloride ER 10 MG Orally Once a day 1 tablet 24h Active midodrine 10 mg 1 Tablet by Oral route 3 times per day Aug, Active Natazia 3/2-2/2-3/1 MG Orally Once a day 1 tablet 24h Active RESULTS No Results PROCEDURES Procedure Date Ordered Related Diagnosis Body Site [facility] VISIT ESTABLISHED PATIENT Nov 03, 2016 Office Visit, Est Pt., Level 4 Nov 03, 2016 IMMUNIZATIONS No Known Immunizations
--- OUTSIDE RECORDS SUMMARY | 2019-04-20 14:08 | XMS REPORT ---
Author ANIRUDH Lubin [employer] Address Unknown Phone Unavailable Care Team Providers Care Hand Sizer Name Role Phone ANIRUDH ROSE CP Unavailable Allergies, Adverse Reactions, Alerts Substance Reaction Event Type [place] Carbonate itching Drug Allergy Abilify 5 Mg Tablet increased glucose Non Drug Allergy Opioids - Morphine Analogues Info Not Available Non Drug Allergy Problems Problem Type Condition ICD-9 Code Onset Dates Condition Status Problem Nondependent cocaine abuse, unspecified 305.60 Active Problem Bipolar I disorder, most recent episode (or current) mixed, moderate 296.62 Active Problem Other and unspecified bipolar disorders 296.89 Active Assessment Bipolar I disorder, most recent episode (or current) mixed, in partial or unspecified remission 296.65 Active Assessment PTSD (post-traumatic stress disorder) 309.81 Active Problem Unspecified anemia 285.9 Active Problem Major depressive disorder, recurrent episode, moderate 296.32 Active Medications Medication Code System Code Instructions Start Date End Date Status Dosage Oxybutynin Chloride ER [facility] [address]-17 10 MG Orally Once a day 1 tablet Vitamin D [facility] [address]-32 1000 UNIT Orally Once a day 1 tablet Seroquel XR [facility] [address]-52 150 MG Orally Once a day at hs 2 tablets Topamax [facility] 58830947410 100MG Orally Twice a day for mood 1 tablet Multi Complete [facility] 29[address] Orally not defined MedroxyPROGESTERone Acetate [facility] [address]-58 10 mg Orally Once a day 1 tab Clonazepam [facility] 22900119922 1MG Orally 3 times a day as needed for anxiety 1 tablet Natazia [facility] [address]-00 3/2-2/2-3/1 MG Orally Once a day 1 tablet Trazodone HCl [facility] 26349455264 100MG Orally at bedtime for sleep 2 tablets midodrine [facility] 0 10 mg Sep 07, 2012 1 Tablet by Oral route 3 times per day Procedures Procedure Coding System Code Date Office Visit, Est Pt., Level 4 CPT-4 95363 Jun 04, 2015 REPLACED BY [facility] VISIT ESTABLISHED PATIENT CPT-4 G0467 Jun 04, 2015 Vital Signs Date/Time: Jun 04, 2015 Temperature 98.6 F Weight 153.2 lbs Height 60 in BMI 29.92 Index Blood Pressure Diastolic 60 mmHg Blood Pressure Systolic 110 mmHg Cardiac Monitoring Heart Rate 96 bpm Results No Known Results Summary Purpose eClinicalWorks Submission
--- OUTSIDE RECORDS SUMMARY | 2019-04-20 14:08 | XMS REPORT ---
Author Author VON LASSITER [facility] Address [address] [place] [address] Care Team Providers Care Operational Risk Analyst Name Role Phone VON LASSITER Unavailable PROBLEMS Type Condition ICD9-CM Code [id number] Code Onset Dates Condition Status SNOMED Code Problem Major depressive disorder, recurrent episode, moderate 296.32 Active 83126013 Problem Bipolar disorder current episode depressed F31.30 Active 242771973 Problem Moderate mixed bipolar I disorder F31.62 Active 92585601 Problem Nondependent cocaine abuse, unspecified 305.60 Active 702676828 Problem Other and unspecified bipolar disorders 296.89 Active 44661702 Problem Unspecified anemia 285.9 Active 866152541 Problem Bipolar affective disorder, current episode hypomanic F31.0 Active 42075295 Problem Bipolar disorder in partial remission, most recent episode unspecified type F31.70 Active 936016142 Problem Long-term use of high-risk medication Z79.899 Active 058362466 Problem Bipolar disorder, current episode mixed, severe, without psychotic features F31.63 Active 446615073 Problem ADHD (attention deficit hyperactivity disorder), inattentive type F90.0 Active 98844509 Problem LUCY (generalized anxiety disorder) F41.1 Active 22377379 ALLERGIES No Information ENCOUNTERS Encounter Location Date Diagnosis [facility] [id number] [address] Mar, [facility] [id number], [place] [address] Dec, [facility] [id number], [place] [address] Dec, Bipolar affective disorder, current episode hypomanic F31.0 ; Long- term use of high-risk medication Z79.899 and LUCY (generalized anxiety disorder) F41.1 [facility] [address], [place] [address] Nov, [facility] [address], [place] [address] Oct, [facility] [address], [place] [address] Sep, Bipolar disorder in partial remission, most recent episode unspecified type F31.70 ; ADHD (attention deficit hyperactivity disorder), inattentive type F90.0 and LUCY (generalized anxiety disorder) F41.1 [facility] [address] [place] [address] Sep, [facility] [id number] [place] [address] Aug, Bipolar disorder in partial remission, most recent episode unspecified type F31.70 ; Long-term use of high-risk medication Z79.899 ; ADHD (attention deficit hyperactivity disorder), inattentive type F90.0 and LUCY (generalized anxiety disorder) F41.1 [facility] [address] [place] [address] Aug, [facility] [id number] [place] [address] Jul, [facility] [address], [place] [address] May, Visit for TB skin test Z11.1 [facility] [id number] [place] [address] May, [facility] [address] [place] [address] Apr, Moderate mixed bipolar I disorder F31.62 and PTSD (post-traumatic stress disorder) F43.10 [facility] [address], [place] [address] Mar, [facility] [id number] [place] [address] Jan, Moderate mixed bipolar I disorder F31.62 ; PTSD (post-traumatic stress disorder) F43.10 and Long-term use of high-risk medication Z79.899 [facility] [id number] [place] [address] Oct, Moderate mixed bipolar I disorder F31.62 and PTSD (post-traumatic stress disorder) F43.10 [facility] [id number] [place] [address] Sep, PTSD (post-traumatic stress disorder) F43.10 and Moderate mixed bipolar I disorder F31.62 [facility] [id number] [place] [address] Sep, [facility] [id number] [place] [address] Sep, [facility] [id number] [place] [address] Aug, PTSD (post-traumatic stress disorder) F43.10 and Moderate mixed bipolar I disorder F31.62 [facility] [id number] [place] [address] Jul, [facility] [id number] [place] [address] Jul, [facility] [address] [place] [address] Jul, PTSD (post-traumatic stress disorder) F43.10 and Moderate mixed bipolar I disorder F31.62 [facility] [address] [place] [address] May, [facility] [id number] [place] [address] May, [facility] [id number] [place] [phone] Apr, [facility] [id number] [place] [address] Apr, [facility] [address], [place] [address] Apr, PTSD (post-traumatic stress disorder) F43.10 and Moderate mixed bipolar I disorder F31.62 [facility] [address], [place] [address] Mar, [facility] [address] [place] [address] Mar, [facility] [address], [place] [address] Mar, [facility] [address], [place] [address] February, [facility] [address], [place] [address] February, [facility] [address] [place] [address] Jan, Moderate mixed bipolar I disorder F31.62 and PTSD (post-traumatic stress disorder) F43.10 [facility] [address], [place] [address] Jan, [facility] [address], [place] [address] 24 Dec, 2015 Moderate mixed bipolar I disorder F31.62 and PTSD (post-traumatic stress disorder) F43.10 [facility] [address], [place] [address] Dec, PTSD (post-traumatic stress disorder) F43.10 and Bipolar disorder current episode depressed F31.30 [facility] [address], [place] [address] Sep, [facility] [id number] [address] Sep, Moderate mixed bipolar I disorder F31.62 and PTSD (post-traumatic stress disorder) F43.10 [facility] [address], [place] [address] Aug, PTSD (post-traumatic stress disorder) F43.10 and Moderate mixed bipolar I disorder F31.62 [facility] [address], [place] [address] Jul, PTSD (post-traumatic stress disorder) F43.10 and Moderate mixed bipolar I disorder F31.62 [facility] [address] [place] [address] May, [facility] [id number] [place] [address] May, Bipolar I disorder, most recent episode (or current) mixed, in partial or unspecified remission 296.65 and PTSD (post-traumatic stress disorder) 309.81 [facility] [id number] [place] [address] Apr, Bipolar I disorder, most recent episode (or current) mixed, moderate 296.62 and Posttraumatic stress disorder 309.81 [facility] [id number] [place] [address] Mar, [facility] [id number] [place] [address] February, [facility] [address], [place] [address] February, [facility] [id number] [place] [address] Jan, [facility] [id number] [place] [phone] Jan, [facility] [id number] [place] [address] Dec, [facility] [address], [place] [address] Dec, [facility] [address] [facility] [id number] [place] [address] Dec, [facility] [place] [facility] [address] [id number] [place] [address] Dec, [facility] [place] [facility] [address] [id number] [place] [address] Nov, [facility] [place] [facility] [address] [id number] [place] [address] Nov, [facility] [place] [facility] [address] [id number] [place] [address] Nov, [facility] [place] [facility] [address] [id number] [place] [address] Nov, [facility] [place] [facility] [address] [id number] [place] [address] Nov, [facility] [place] [facility] [address] [id number] [place] [address] Oct, [facility] [place] [facility] [address] [id number] [place] [address] Oct, [facility] [place] [facility] [address] [id number] [place] [address] Oct, [facility] [place] [facility] [address] [id number] [place] [address] Oct, [facility] [place] [facility] [address] [id number] [place] [address] Oct, [facility] [place] [facility] [address] [id number] [place] [address] Oct, [facility] [place] [facility] [address] [id number] [place] [address] Sep, [facility] [place] [facility] [address] [id number] [place] [address] Sep, [facility] [place] [facility] [address] [id number], [place] [address] Sep, [facility] [place] [facility] [address] [id number] [place] [address] Sep, [facility] [place] [facility] [address] [id number] [place] [address] Sep, [facility] [place] [facility] [address] [id number] [place] [address] Sep, [facility] [place] [facility] [address] [id number] [place] [address] Sep, [facility] [place] [facility] [address] [id number] [place] [address] Sep, [facility] [place] [facility] [address] [id number] [place] [address] Sep, [facility] [place] [facility] [address] [id number] [place] [address] Sep, [facility] [place] [facility] [address] [id number] [place] [address] Aug, [facility] [place] [facility] [address] [id number] [place] [address] Aug, [facility] [place] [facility] [address] [id number] [place] [address] Aug, [facility] [place] [facility] [address] [id number], [place] [address] Aug, [facility] [place] [facility] [address] [id number], [place] [address] Aug, [facility] [place] [facility] [address] [id number] [place] [address] Aug, [facility] [place] [facility] [address] [id number], [place] [address] Jul, [facility] [place] [facility] [address] [id number] [place] [address] Jul, [facility] [place] [facility] [address] [id number] [place] [address] Jun, [facility] [place] [facility] [address] [id number] [place] [address] Jun, [facility] [place] [facility] [address] [id number] [place] [address] Jun, [facility] [place] [facility] [address] [id number] [place] [address] Jun, [facility] [place] [facility] [address] [id number] [place] [address] Jun, [facility] [place] [facility] [address] [id number] [place] [address] Jun, [facility] [place] [facility] [address] [id number] [place] [address] May, [facility] [place] [facility] [address] [id number] [place] [address] May, [facility] [place] [facility] [address] [id number] [place] [address] May, [facility] [place] [facility] [address] [id number] [place] [address] May, [facility] [place] [facility] [address] [id number] [place] [address] February, [facility] [place] [facility] [address] [id number] [place] [address] February, [facility] [place] [facility] [address] [id number] [place] [address] Nov, [facility] [place] [facility] [address] [id number] [place] [address] Nov, [facility] [place] [facility] [address] [id number] [place] [address] Jul, [facility] [place] [facility] [address] [id number] [place] [address] Jul, [facility] [address] [id number] [place] [address] Jul, [facility] [place] [facility] [address] [id number] [place] [address] Jul, [facility] [place] [facility] [address] [id number] [place] [address] May, [facility] [place] [facility] [address] [id number] [place] [address] May, [facility] [place] [facility] [address] [id number] [place] [address] February, [facility] [place] [facility] [address] [id number] [place] [address] Dec, [facility] [place] [facility] [address] [id number] [place] [address] Dec, [facility] [place] [facility] [address] [id number] [place] [address] Dec, [facility] [place] [facility] [address] [id number] [place] [address] Nov, [facility] [place] [facility] [address] [id number] [place] [address] Oct, [facility] [place] [facility] [address] [id number] [place] [address] Sep, [facility] [place] [facility] [address] [id number], [place] [address] Sep, [facility] [place] [facility] [address] [id number] [place] [address] Aug, [facility] [place] [facility] [address] [id number] [place] [address] Aug, [facility] [place] [facility] [address] [id number] [place] [address] Jul, [facility] [place] [facility] [address] [id number] [place] [address] Jul, [facility] [place] [facility] [address] [id number] [place] [address] Jul, [facility] [place] [facility] [address] [id number] [place] [address] Apr, [facility] [place] [facility] [address] [id number] [place] [address] Apr, [facility] [place] [facility] [address] [id number] [place] [address] Mar, [facility] [place] [facility] [address] [id number] [place] [address] February, [facility] [place] [facility] [address] [id number] [place] [address] Jan, [facility] [place] [facility] [address] [id number] [place] [address] Jan, [facility] [place] [facility] [address] [id number] [place] [address] Dec, [facility] [place] [facility] [address] [id number] [place] [address] Nov, [facility] [place] [facility] [address] [facility] [id number] [place] [address] Nov, [facility] [place] [facility] [address] [facility] [id number] [place] [address] Sep, [facility] [place] [facility] [address] [id number] [place] [address] Aug, [facility] [place] [facility] [address] [id number] [place] [address] Jul, [facility] [place] [facility] [address] [id number] [place] [address] Sep, [facility] [place] [facility] [address] [facility] [id number] [place] [address] Sep, [facility] [address] [facility] [id number] [place] [address] Aug, [facility] [address] [facility] [id number], [place] [address] Aug, [facility] [address] [facility] [id number], [place] [address] Jul, IMMUNIZATIONS No Known Immunizations SOCIAL HISTORY Never Assessed [facility] FOR VISIT [facility] Activity Details Follow Up 48-72 hours Reason: VITAL SIGNS MEDICATIONS Unknown Medications RESULTS No Results PROCEDURES Procedure Date Ordered Result Body Site TB INTRADERMAL 2017-06-12 Negative TB INTRADERMAL TEST Jun 12, 2017 LAB NOT BILLED BY [facility] Jun 12, 2017 INSTRUCTIONS MEDICATIONS ADMINISTERED No Known Medications MEDICAL [...]
--- OUTSIDE RECORDS SUMMARY | 2019-04-20 14:08 | XMS REPORT ---
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 Cellulose Insulation Helper Name Role Phone ANIRUDH ROSE CP [...] Nondependent cocaine abuse, unspecified 305.60 Active Medications No Known Medications Results No Known Results Summary Purpose [employer] Submission
--- OUTSIDE RECORDS SUMMARY | 2019-04-20 14:09 | XMS REPORT ---
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 Dish Room Worker Name Role Phone ANIRUDH ROSE CP Unavailable Allergies, Adverse Reactions, Alerts Substance Reaction Event Type Macrodantin hives Drug Allergy [place] Carbonate itching Drug Allergy Abilify 5 Mg [...] disorder, recurrent episode, moderate 296.32 Active Assessment Moderate mixed bipolar I disorder F31.62 Active Problem Nondependent cocaine abuse, unspecified 305.60 Active Problem Unspecified anemia 285.9 Active Medications Medication Code System Code Instructions Start Date End Date Status Dosage Seroquel XR [facility] 75141073204 300MG Orally Once a day at hs 2 tablets Oxybutynin Chloride ER [facility] [address]-89 10 MG Orally Once a day 1 tablet Natazia [facility] [address]-13 3/2-2/2-3/1 MG Orally Once a day 1 tablet Lexapro [facility] [address]-47 10 MG Orally Once a day Aug 27, 2015 1 tablet Clonazepam [facility] [id number] 1MG Orally 1 tab in the AM and 2 tabs at HS 1 tablet Vitamin D [facility] [address]-40 1000 UNIT Orally Once a day 1 tablet Multi Complete [facility] [address] Orally not defined Trazodone HCl ND [id number] 100MG Orally at bedtime for sleep 1 or 2 tabs Topamax ND 15084851738 100MG Orally Twice a day 1 tablet midodrine NDC 0 10 mg Sep 07, 2012 1 Tablet by Oral route 3 times per day Procedures Procedure Coding System Code Date Office Visit, Est Pt., Level 3 CPT-4 93976 Sep 24, 2015 [facility] VISIT ESTABLISHED PATIENT CPT-4 G0467 Sep 24, 2015 Vital Signs Date/Time: Sep 24, 2015 Cardiac Monitoring Heart Rate 70 bpm Weight 132 lbs Height 60 in BMI 25.78 Index Blood Pressure Diastolic 70 mmHg Blood Pressure Systolic 122 mmHg Results No Known Results Summary Purpose eClinicalWorks Submission
--- OUTSIDE RECORDS SUMMARY | 2019-04-20 14:09 | XMS REPORT ---
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 Physics Technical Officer Name Role Phone ANIRUDH ROSE CP Unavailable [...] Start Date End Date Status Dosage Clonazepam [facility][NOTE 3] [id number] 1MG Orally 1 tab in the AM and 2 tabs at HS 1 tablet Results No Known Results Summary Purpose eClinicalWorks Submission
--- OUTSIDE RECORDS SUMMARY | 2019-04-20 14:09 | XMS REPORT ---
Author Author ANIRUDH ROSE [facility] Address [address] [place] [address] Care Team Providers Care Digital Campaign Manager Name Role Phone ANIRUDH ROSE Unavailable PROBLEMS Type Condition ICD9-CM Code QDW38-SU Code Onset Dates Condition Status SNOMED Code Problem Major depressive disorder, recurrent episode, moderate 296.32 Active 25312919 Problem Bipolar disorder current episode depressed F31.30 Active 997388321 Problem Moderate mixed bipolar I disorder F31.62 Active 90625297 Problem Nondependent cocaine abuse, unspecified 305.60 Active 131057912 Problem Other and unspecified bipolar disorders 296.89 Active 01813677 Problem Unspecified anemia 285.9 Active 380225859 Problem Bipolar affective disorder, current episode hypomanic F31.0 Active 94098995 Problem Bipolar disorder in partial remission, most recent episode unspecified type F31.70 Active 449816132 Problem Long-term use of high-risk medication Z79.899 Active 190078754 Problem Bipolar disorder, current episode mixed, severe, without psychotic features F31.63 Active 084087061 Problem ADHD (attention deficit hyperactivity disorder), inattentive type F90.0 Active 92216540 Problem LUCY (generalized anxiety disorder) F41.1 Active 46746450 ALLERGIES Substance Reaction Event Type Date Status Macrodantin hives Drug Allergy Apr, Active Boronda Carbonate itching Drug Allergy Apr, Active Fentanyl blister Drug Allergy Apr, Active Abilify 5 Mg Tablet increased glucose Non Drug Allergy Apr, Active Opioids - Morphine Analogues Unknown Non Drug Allergy Apr, Active ENCOUNTERS Encounter Location Date Diagnosis [facility] [address] [facility] [id number], [place] [address] Mar, [facility] [address] [facility] [id number] [place] [address] Dec, [facility] [address], [place] [address] Dec, Bipolar affective disorder, current episode hypomanic F31.0 ; Long- term use of high-risk medication Z79.899 and LUCY (generalized anxiety disorder) F41.1 [facility] [address], [place] [address] Nov, [facility] [id number] [place] [address] Oct, [facility] [address] [place] [address] Sep, Bipolar disorder in partial remission, most recent episode unspecified type F31.70 ; ADHD (attention deficit hyperactivity disorder), inattentive type F90.0 and LUCY (generalized anxiety disorder) F41.1 [facility] [address], [place] [address] Sep, [facility] [id number] [place] [address] Aug, Bipolar disorder in partial remission, most recent episode unspecified type F31.70 ; Long-term use of high-risk medication Z79.899 ; ADHD (attention deficit hyperactivity disorder), inattentive type F90.0 and LUCY (generalized anxiety disorder) F41.1 [facility] [address], [place] [address] Aug, [facility] [address] [place] [address] Jul, [facility] [address], [place] [address] May, Visit for TB skin test Z11.1 [facility] [id number] [place] [address] May, [facility] [address], [place] [address] Apr, Moderate mixed bipolar I disorder F31.62 and PTSD (post-traumatic stress disorder) F43.10 [facility] [address], [place] [address] Mar, [facility] [id number] [place] [address] Jan, Moderate mixed bipolar I disorder F31.62 ; PTSD (post-traumatic stress disorder) F43.10 and Long-term use of high-risk medication Z79.899 [facility] [id number] [place] [address] Oct, Moderate mixed bipolar I disorder F31.62 and PTSD (post-traumatic stress disorder) F43.10 [facility] [id number] [place] [address] Sep, PTSD (post-traumatic stress disorder) F43.10 and Moderate mixed bipolar I disorder F31.62 [facility] [id number] [place] [address] Sep, [facility] [id number] [place] [address] Sep, [facility] [id number] [place] [address] Aug, PTSD (post-traumatic stress disorder) F43.10 and Moderate mixed bipolar I disorder F31.62 [facility] [id number], [place] [address] Jul, [facility] [address], [place] [address] Jul, [facility] [id number] [place] [address] Jul, PTSD (post-traumatic stress disorder) F43.10 and Moderate mixed bipolar I disorder F31.62 [facility] [address], [place] [address] May, [facility] [id number], [place] [address] May, [facility] [id number], [place] [address] Apr, [facility] [id number], [place] [address] Apr, [facility] [address], [place] [address] Apr, PTSD (post-traumatic stress disorder) F43.10 and Moderate mixed bipolar I disorder F31.62 [facility] [id number], [place] [address] Mar, [facility] [id number], [place] [address] Mar, [facility] [address], [place] [address] Mar, [facility] [address], [place] [address] February, [facility] [id number], [place] [address] February, [facility] [id number], [place] [address] Jan, Moderate mixed bipolar I disorder F31.62 and PTSD (post-traumatic stress disorder) F43.10 [facility] [address], [place] [address] Jan, [facility] [address] [id number], [place] [address] 24 Dec, 2015 Moderate mixed bipolar I disorder F31.62 and PTSD (post-traumatic stress disorder) F43.10 [facility] [address] [id number], [place] [address] Dec, PTSD (post-traumatic stress disorder) F43.10 and Bipolar disorder current episode depressed F31.30 [facility] [address], [place] [address] Sep, [facility] [address] [place] [address] Sep, Moderate mixed bipolar I disorder F31.62 and PTSD (post-traumatic stress disorder) F43.10 [facility] [address], [place] [address] Aug, PTSD (post-traumatic stress disorder) F43.10 and Moderate mixed bipolar I disorder F31.62 [facility] [address] [place] [address] Jul, PTSD (post-traumatic stress disorder) F43.10 and Moderate mixed bipolar I disorder F31.62 [facility] [address] [place] [address] May, [facility] [id number] [place] [address] May, Bipolar I disorder, most recent episode (or current) mixed, in partial or unspecified remission 296.65 and PTSD (post-traumatic stress disorder) 309.81 [facility] [address] [place] [address] Apr, Bipolar I disorder, most recent episode (or current) mixed, moderate 296.62 and Posttraumatic stress disorder 309.81 [facility] [address], [place] [address] Mar, [facility] [address], [place] [address] February, [facility] [address] [place] [address] February, [facility] [address], [place] [address] Jan, [facility] [address], [place] [address] Jan, [facility] [place] [facility] [address] [id number] [place] [address] Dec, [facility] [place] [facility] [address] [id number] [place] [address] Dec, [facility] [place] [facility] [address] [id number] [place] [address] Dec, [facility] [place] [facility] [address] [id number] [place] [address] Dec, [facility] [place] [facility] [address] [id number] [place] [address] Nov, [facility] [place] [facility] [address] [id number] [place] [address] Nov, [facility] [place] [facility] [address] [id number] [place] [address] Nov, [facility] [place] [facility] [address] [id number] [place] [address] Nov, [facility] [place] [facility] [address] [id number] [place] [address] Nov, [facility] [place] [facility] [address] [id number] [place] [address] Oct, [facility] [place] [facility] [address] [id number] [place] [address] Oct, [facility] [place] [facility] [address] [id number] [place] [address] Oct, [facility] [place] [facility] [address] [id number] [place] [address] Oct, [facility] [place] [facility] [address] [id number] [place] [address] Oct, [facility] [place] [facility] [address] [id number] [place] [address] Oct, [facility] [place] [facility] [address] [id number] [place] [address] Sep, [facility] [place] [facility] [address] [id number] [place] [address] Sep, [facility] [place] [facility] [address] [id number] [place] [address] Sep, [facility] [place] [facility] [address] [id number] [place] [address] Sep, [facility] [place] [facility] [address] [id number] [place] [address] Sep, [facility] [place] [facility] [address] [id number] [place] [address] Sep, [facility] [place] [facility] [address] [id number] [place] [address] Sep, [facility] [place] [facility] [address] [id number] [place] [address] Sep, [facility] [place] [facility] [address] [id number] [place] [address] Sep, [facility] [place] [facility] [address] [id number] [place] [address] Sep, [facility] [place] [facility] [address] [id number] [place] [address] Aug, [facility] [place] [facility] [address] [id number] [place] [address] Aug, [facility] [place] [facility] [address] [id number], [place] [address] Aug, [facility] [place] [facility] [address] [id number] [place] [address] Aug, [facility] [place] [facility] [address] [id number] [place] [address] Aug, [facility] [place] [facility] [address] [id number] [place] [address] Aug, [facility] [place] [facility] [address] [id number] [place] [address] Jul, [facility] [place] [facility] [address] [id number] [place] [address] Jul, [facility] [place] [facility] [address] [id number] [place] [address] Jun, [facility] [place] [facility] [address] [id number] [place] [address] Jun, [facility] [place] [facility] [address] [id number] [place] [address] Jun, [facility] [place] [facility] [address] [id number] [place] [address] Jun, [facility] [place] [facility] [address] [id number] [place] [address] Jun, [facility] [place] [facility] [address] [id number] [place] [address] Jun, [facility] [place] [facility] [address] [id number] [place] [address] May, [facility] [place] [facility] [address] [id number] [place] [address] May, [facility] [place] [facility] [address] [id number] [place] [address] May, [facility] [place] [facility] [address] [id number] [place] [address] May, [facility] [place] [facility] [address] [id number] [place] [address] February, [facility] [place] [facility] [address] [id number] [place] [address] February, [facility] [place] [facility] [address] [id number] [place] [address] Nov, [facility] [place] [facility] [address] [id number] [place] [address] Nov, [facility] [address] [id number] [place] [address] Jul, [facility] [place] [facility] [address] [id number] [place] [address] Jul, [facility] [place] [facility] [address] [id number] [place] [address] Jul, [facility] [place] [facility] [address] [id number] [place] [address] Jul, [facility] [place] [facility] [address] [id number] [place] [address] May, [facility] [place] [facility] [address] [id number] [place] [address] May, [facility] [place] [facility] [address] [id number] [place] [address] February, [facility] [place] [facility] [address] [id number] [place] [address] Dec, [facility] [place] [facility] [address] [id number] [place] [address] Dec, [facility] [place] [facility] [address] [id number] [place] [address] Dec, [facility] [place] [facility] [address] [id number] [place] [address] Nov, [facility] [place] [facility] [address] [id number] [place] [address] Oct, [facility] [place] [facility] [address] [id number] [place] [address] Sep, [facility] [place] [facility] [address] [id number] [place] [address] Sep, [facility] [place] [facility] [address] [id number] [place] [address] Aug, [facility] [place] [facility] [address] [id number] [place] [address] Aug, [facility] [address] [id number] [place] [address] Jul, [facility] [place] [facility] [address] [id number] [place] [address] Jul, [facility] [address] [id number] [place] [address] Jul, [facility] [place] [facility] [address] [id number] [place] [address] Apr, [facility] [address] [id number] [place] [address] Apr, [facility] [address] [id number] [place] [address] Mar, [facility] [place] [facility] [address] [id number] [place] [address] February, [facility] [address] [id number] [place] [address] Jan, [facility] [place] [facility] [address] [id number] [place] [address] Jan, [facility] [address] [id number] [place] [address] Dec, [facility] [place] [place] [facility] [address] [id number] [place] [address] Nov, [facility] [address] [id number] [place] [address] Nov, [facility] [place] [facility] [address] [id number] [place] [address] Sep, [facility] [place] [facility] [address] [id number] [place] [address] Aug, [facility] [place] [facility] [address] [id number] [place] [address] Jul, [facility] [address] [facility] [id number], [place] [address] Sep, [facility] [address] [facility] [id number], [place] [address] Sep, [facility] [address] [facility] [id number], [place] [address] Aug, [facility] [address] [facility] [id number], [place] [address] Aug, [facility] [address] [facility] [id number], [place] [address] Jul, IMMUNIZATIONS No Known Immunizations SOCIAL HISTORY Never Assessed REASON FOR VISIT ramona/reji Solorio MA PLAN OF CARE Activity Details Follow Up 3 Months Reason: VITAL SIGNS Height 60 in 2017-05-04 Weight 146.5 lbs 2017-05-04 Heart Rate 108 bpm 2017-05-04 Respiratory Rate 22 2017-05-04 BMI 28.61 kg/m2 2017-05-04 Blood pressure systolic 108 mmHg 2017-05-04 Blood pressure diastolic 76 mmHg 2017-05-04 MEDICATIONS Medication Instructions Dosage Frequency Start Date End Date Duration Status Natazia 3/2-2/2-3/1 MG Orally Once a day 1 tablet 24h Active Multi Complete Active midodrine 10 mg 1 Tablet by Oral route 3 times per day Aug, Active Clonazepam 1MG Orally 1 tab in the AM and 2 tabs at HS 1 tablet Active Oxybutynin Chloride ER 10 MG Orally Once a day 1 tablet 24h Active Latuda 60 mg Orally in the evening 1 tablet with 350kcal Jul, Active Trazodone HCl 100MG Orally at bedtime for sleep 2 tabs Active Topamax 100MG Orally Twice a day 1 tablet 12h Active Fetzima 40MG TAKE ONE CAPSULE BY MOUTH ONCE DAILY Active RESULTS No Results PROCEDURES Procedure Date Ordered Result Body Site [facility] VISIT ESTABLISHED PATIENT May 04, 2017 INSTRUCTIONS MEDICATIONS ADMINISTERED No Known Medications [...]
--- OUTSIDE RECORDS SUMMARY | 2019-04-20 14:09 | XMS REPORT ---
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 Turntable Worker Name Role Phone ANIRUDH ROSE CP [...] Date End Date Status Dosage Trazodone HCl [facility] [id number] 100MG Orally at bedtime for sleep 1 or 2 tabs Results No Known Results Summary Purpose eClinicalWorks Submission
--- OUTSIDE RECORDS SUMMARY | 2019-04-20 14:10 | XMS REPORT | Continuity of Care Document ---
Author Organization Unknown Address Unknown Allergies Active Description Code Type Severity Reaction Onset Reported/Identified Relationship to Patient Clinical Status Yes lithium [id number] Drug Allergy Mild N/A 09/06/2009 Yes meperidine [id number] Drug Allergy Mild N/A 09/06/2009 Yes morphine [id number] Drug Allergy Mild N/A 09/06/2009 Yes nitrofurantoin [id number] Drug Allergy Mild N/A 09/06/2009 Yes lithium Drug Allergy N/A N/A 04/11/2011 Yes Macrodantin Drug Allergy N/A N/A 04/11/2011 Yes morphine Drug Allergy N/A N/A 04/11/2011 Yes lithium Drug Allergy 04/11/2011 Yes Macrodantin Drug Allergy 04/11/2011 Yes morphine Drug Allergy 04/11/2011 Yes Demerol Drug Allergy N/A N/A 05/11/2011 Yes Demerol Drug Allergy 05/11/2011 Yes Wellbutrin Drug Allergy N/A N/A 08/11/2011 Yes Wellbutrin Drug Allergy 08/11/2011 Yes Abilify 5 mg tablet Drug Allergy N/A N/A 08/15/2013 Yes Opioids - Morphine Analogues Drug Allergy N/A N/A 01/01/2015 Yes adhesive [id number] Drug Allergy Unknown HIVES 04/21/2015 Yes HONEY BEES HONEY BEES Unknown N/A 08/03/2016 Yes RIMERONE RIMERONE Unknown N/A 08/03/2016 Medications There is no data. Problems Date Dx Coded Attending Type Code Diagnosis Diagnosed By 09/24/2010 296.51 MO BIPOLAR I DEPRESSED MILD 09/24/2010 300.02 AN GEN ANXIETY 09/24/2010 301.9 PD PERS DIS NOS 09/24/2010 296.51 MO BIPOLAR I DEPRESSED MILD 09/24/2010 300.02 AN GEN ANXIETY 09/24/2010 301.9 PD PERS DIS NOS 09/24/2010 296.51 MO BIPOLAR I DEPRESSED MILD 09/24/2010 300.02 AN GEN ANXIETY 09/24/2010 301.9 PD PERS DIS NOS 09/24/2010 296.51 MO BIPOLAR I DEPRESSED MILD 09/24/2010 300.02 AN GEN ANXIETY 09/24/2010 301.9 PD PERS DIS NOS 09/24/2010 EUNICE HSU DO F 296.51 MO BIPOLAR I DEPRESSED MILD 09/24/2010 EUNICE HSU DO F 300.02 AN GEN ANXIETY 09/24/2010 EUNICE HSU DO F 301.9 PD PERS DIS NOS 09/24/2010 296.51 MO BIPOLAR I DEPRESSED MILD 09/24/2010 300.02 AN GEN ANXIETY 09/24/2010 301.9 PD PERS DIS NOS 09/24/2010 296.51 MO BIPOLAR I DEPRESSED MILD 09/24/2010 300.02 AN GEN ANXIETY 09/24/2010 301.9 PD PERS DIS NOS 09/24/2010 ASHLEY MURPHY APRN 296.51 MO BIPOLAR I DEPRESSED MILD 09/24/2010 ASHLEY MURPHY APRN 300.02 AN GEN ANXIETY 09/24/2010 ASHLEY MURPHY APRN 301.9 PD PERS DIS NOS 09/24/2010 ASHLEY MURPHY APRN 296.51 MO BIPOLAR I DEPRESSED MILD 09/24/2010 ASHLEY MURPHY APRN 300.02 AN GEN ANXIETY 09/24/2010 ASHLEY MURPHY APRN 301.9 PD PERS DIS NOS 09/24/2010 ASHLEY MURPHY APRN 296.51 MO BIPOLAR I DEPRESSED MILD 09/24/2010 ASHLEY MURPHY APRN 300.02 AN GEN ANXIETY 09/24/2010 ASHLEY MURPHY APRN 301.9 PD PERS DIS NOS 09/24/2010 ASHLEY MURPHY APRN 296.51 MO BIPOLAR I DEPRESSED MILD 09/24/2010 ASHLEY MURPHY APRN 300.02 AN GEN ANXIETY 09/24/2010 ASHLEY MURPHY APRN 301.9 PD PERS DIS NOS 09/24/2010 ASHLEY MURPHY APRN 296.51 MO BIPOLAR I DEPRESSED MILD 09/24/2010 ASHLEY MURPHY APRN 300.02 AN GEN ANXIETY 09/24/2010 ASHLEY MURPHY APRN 301.9 PD PERS DIS NOS 09/24/2010 ZORAIDA ROSE APRNA J 296.51 MO BIPOLAR I DEPRESSED MILD 09/24/2010 ZORAIDA ROSE APRNA J 300.02 AN GEN ANXIETY 09/24/2010 ZORAIDA ROSE APRNA J 301.9 PD PERS DIS NOS 09/24/2010 ZORAIDA ROSE APRNA J 296.51 MO BIPOLAR I DEPRESSED MILD 09/24/2010 ZORAIDA ROSE APRNA J 300.02 AN GEN ANXIETY 09/24/2010 ZORAIDA ROSE APRNA J 301.9 PD PERS DIS NOS 09/24/2010 ZORAIDA ROSE APRNA J 296.51 MO BIPOLAR I DEPRESSED MILD 09/24/2010 ZORAIDA ROSE APRNA J 300.02 AN GEN ANXIETY 09/24/2010 ZORAIDA ROSE APRNA J 301.9 PD PERS DIS NOS 09/24/2010 ZORAIDA ROSE APRNA J 296.51 MO BIPOLAR I DEPRESSED MILD 09/24/2010 ZORAIDA ROSE APRNA Lisbeth 300.02 AN GEN ANXIETY 09/24/2010 ZORAIDA ROSE APRNA Lisbeth 301.9 PD PERS DIS NOS 09/24/2010 ZORAIDA ROSE APRNA J 296.51 MO BIPOLAR I DEPRESSED MILD 09/24/2010 ZORAIDA ROSE APRNA J 300.02 AN GEN ANXIETY 09/24/2010 ZORAIDA ROSE APRNA J 301.9 PD PERS DIS NOS 09/24/2010 ZORAIDA ROSE APRNA J 296.51 MO BIPOLAR I DEPRESSED MILD 09/24/2010 ZORAIDA ROSE APRNA J 300.02 AN GEN ANXIETY 09/24/2010 ZORAIDA ROSE APRNA Lisbeth 301.9 PD PERS DIS NOS 09/24/2010 ZORAIDA ROSE APRNA J 296.51 MO BIPOLAR I DEPRESSED MILD 09/24/2010 ZORAIDA ROSE APRNA J 300.02 AN GEN ANXIETY 09/24/2010 ZORAIDA ROSE APRNA J 301.9 PD PERS DIS NOS 01/25/2011 Ot 840.9 SPRAIN SHOULDER/ARM NOS 01/25/2011 Ot 959.2 SHLDR/UPPER ARM INJ NOS 01/25/2011 Ot E000.8 OTHER EXTERNAL CAUSE STATUS 01/25/2011 Ot E029.2 ROUGH HOUSING AND HORSEPLAY 01/25/2011 Ot E849.0 ACCIDENT IN HOME 01/25/2011 Ot E928.9 ACCIDENT NOS 03/03/2011 296.66 MO BIPOLAR I MIXED IN FULL REMISSION 03/03/2011 V58.69 MEDICATION HIGH RISK 03/03/2011 296.66 MO BIPOLAR I MIXED IN FULL REMISSION 03/03/2011 V58.69 MEDICATION HIGH RISK 03/03/2011 296.66 MO BIPOLAR I MIXED IN FULL REMISSION 03/03/2011 V58.69 MEDICATION HIGH RISK 03/03/2011 296.66 MO BIPOLAR I MIXED IN FULL REMISSION 03/03/2011 V58.69 MEDICATION HIGH RISK 03/03/2011 EUNICE HSU DO 296.66 MO BIPOLAR I MIXED IN FULL REMISSION 03/03/2011 EUNICE HSU DO V58.69 MEDICATION HIGH RISK 03/03/2011 296.66 MO BIPOLAR I MIXED IN FULL REMISSION 03/03/2011 V58.69 MEDICATION HIGH RISK 03/03/2011 296.66 MO BIPOLAR I MIXED IN FULL REMISSION 03/03/2011 V58.69 MEDICATION HIGH RISK 03/03/2011 ASHLEY MURPHY APRN 296.66 MO BIPOLAR I MIXED IN FULL REMISSION 03/03/2011 ASHLEY MURPHY APRN V58.69 MEDICATION HIGH RISK 03/03/2011 ASHLEY MURPHY APRN 296.66 MO BIPOLAR I MIXED IN FULL REMISSION 03/03/2011 ASHLEY MURPHY APRN V58.69 MEDICATION HIGH RISK 03/03/2011 ASHLEY MURPHY APRN 296.66 MO BIPOLAR I MIXED IN FULL REMISSION 03/03/2011 ASHLEY MURPHY APRN V58.69 MEDICATION HIGH RISK 03/03/2011 ASHLEY MURPHY APRN 296.66 MO BIPOLAR I MIXED IN FULL REMISSION 03/03/2011 ASHLEY MURPHY APRN V58.69 MEDICATION HIGH RISK 03/03/2011 ASHLEY MURPHY APRN 296.66 MO BIPOLAR I MIXED IN FULL REMISSION 03/03/2011 ASHLEY MURPHY APRN V58.69 MEDICATION HIGH RISK 03/03/2011 ANIRUDH ROSE APRN 296.66 MO BIPOLAR I MIXED IN FULL REMISSION 03/03/2011 ANIRUDH ROSE APRN V58.69 MEDICATION HIGH RISK 03/03/2011 ANIRUDH ROSE APRN 296.66 MO BIPOLAR I MIXED IN FULL REMISSION 03/03/2011 ANIRUDH ROSE APRN V58.69 MEDICATION HIGH RISK 03/03/2011 ANIRUDH ROSE APRN 296.66 MO BIPOLAR I MIXED IN FULL REMISSION 03/03/2011 ANIRUDH ROSE APRN V58.69 MEDICATION HIGH RISK 03/03/2011 ANIRUDH ROSE APRN 296.66 MO BIPOLAR I MIXED IN FULL REMISSION 03/03/2011 ZORAIDA ROSE APRNA Lisbeth V58.69 MEDICATION HIGH RISK 03/03/2011 ZORAIDA ROSE APRNA J 296.66 MO BIPOLAR I MIXED IN FULL REMISSION 03/03/2011 ANIRUDH ROSE APRN V58.69 MEDICATION HIGH RISK 03/03/2011 ANIRUDH ROSE APRN J 296.66 MO BIPOLAR I MIXED IN FULL REMISSION 03/03/2011 ANIRUDH ROSE APRN V58.69 MEDICATION HIGH RISK 03/03/2011 ANIRUDH ROSE APRN 296.66 MO BIPOLAR I MIXED IN FULL REMISSION 03/03/2011 ANIRUDH ROSE APRN V58.69 MEDICATION HIGH RISK 04/11/2011 296.80 MO BIPOLAR NOS 04/11/2011 296.80 MO BIPOLAR NOS 04/11/2011 296.80 MO BIPOLAR NOS 04/11/2011 296.80 MO BIPOLAR NOS 04/11/2011 EUNICE HSU DO 296.80 MO BIPOLAR NOS 04/11/2011 296.80 MO BIPOLAR NOS 04/11/2011 296.80 MO BIPOLAR NOS 04/11/2011 ASHLEY MURPHY APRN 296.80 MO BIPOLAR NOS 04/11/2011 ASHLEY MURPHY APRN 296.80 MO BIPOLAR NOS 04/11/2011 ASHLEY MURPHY APRN 296.80 MO BIPOLAR NOS 04/11/2011 ASHLEY MURPHY APRN 296.80 MO BIPOLAR NOS 04/11/2011 ASHLEY MURPHY APRN 296.80 MO BIPOLAR NOS 04/11/2011 ANIRUDH ROSE APRN 296.80 MO BIPOLAR NOS 04/11/2011 ANIRUDH ROSE APRN 296.80 MO BIPOLAR NOS 04/11/2011 MILTON BOARD WORKER, ANIRUDH J 296.80 MO BIPOLAR NOS 04/11/2011 MILTON AGUILAR, ANIRUDH J 296.80 MO BIPOLAR NOS 04/11/2011 ANASTACIO ROSE APRNINDA J 296.80 MO BIPOLAR NOS 04/11/2011 MILTON AGUILAR, ANIRUDH J 296.80 MO BIPOLAR NOS 04/11/2011 MILTON AGUILAR, ANIRUDH J 296.80 MO BIPOLAR NOS 05/11/2011 301.83 PD BORDERLINE 05/11/2011 301.83 PD BORDERLINE 05/11/2011 301.83 PD BORDERLINE 05/11/2011 301.83 PD BORDERLINE 05/11/2011 EUNICE HSU DO 301.83 PD BORDERLINE 05/11/2011 301.83 PD BORDERLINE 05/11/2011 301.83 PD BORDERLINE 05/11/2011 ASHLEY MURPHY APRN 301.83 PD BORDERLINE 05/11/2011 ASHLEY MURPHY APRN 301.83 PD BORDERLINE 05/11/2011 ASHLEY MURPHY APRN 301.83 PD BORDERLINE 05/11/2011 ASHLEY MURPHY APRN 301.83 PD BORDERLINE 05/11/2011 ASHLEY MURPHY APRN 301.83 PD BORDERLINE 05/11/2011 ANASTACIO ROSE APRNINDA J 301.83 PD BORDERLINE 05/11/2011 ANASTACIO ROSE APRNINDA J 301.83 PD BORDERLINE 05/11/2011 MILTON AGUILAR ANIRUDH J 301.83 PD BORDERLINE 05/11/2011 MILTON AGUILAR ANIRUDH J 301.83 PD BORDERLINE 05/11/2011 ANASTACIO ROSE APRNINDA J 301.83 PD BORDERLINE 05/11/2011 MILTON AGUILAR ANIRUDH J 301.83 PD BORDERLINE 05/11/2011 MILTON AGUILAR ANIRUDH J 301.83 PD BORDERLINE 07/12/2011 296.33 MO DEPRESSIVE RECURRENT SEVERE W/O PSYCHOTIC BEHAVIOR 07/12/2011 296.33 MO DEPRESSIVE RECURRENT SEVERE W/O PSYCHOTIC BEHAVIOR 07/12/2011 296.33 MO DEPRESSIVE RECURRENT SEVERE W/O PSYCHOTIC BEHAVIOR 07/12/2011 296.33 MO DEPRESSIVE RECURRENT SEVERE W/O PSYCHOTIC BEHAVIOR 07/12/2011 EUNICE HSU DO 296.33 MO DEPRESSIVE RECURRENT SEVERE W/O PSYCHOTIC BEHAVIOR 07/12/2011 296.33 MO DEPRESSIVE RECURRENT SEVERE W/O PSYCHOTIC BEHAVIOR 07/12/2011 296.33 MO DEPRESSIVE RECURRENT SEVERE W/O PSYCHOTIC BEHAVIOR 07/12/2011 ASLHEY MURPHY APRN 296.33 MO DEPRESSIVE RECURRENT SEVERE W/O PSYCHOTIC BEHAVIOR 07/12/2011 ASHLEY MURPHY APRN 296.33 MO DEPRESSIVE RECURRENT SEVERE W/O PSYCHOTIC BEHAVIOR 07/12/2011 ASHLEY MURPHY APRN 296.33 MO DEPRESSIVE RECURRENT SEVERE W/O PSYCHOTIC BEHAVIOR 07/12/2011 ASHLEY MURPHY APRN 296.33 MO DEPRESSIVE RECURRENT SEVERE W/O PSYCHOTIC BEHAVIOR 07/12/2011 ASHLEY MURPHY APRN 296.33 MO DEPRESSIVE RECURRENT SEVERE W/O PSYCHOTIC BEHAVIOR 07/12/2011 ZORAIDA ROSE APRNA Lisbeth 296.33 MO DEPRESSIVE RECURRENT SEVERE W/O PSYCHOTIC BEHAVIOR 07/12/2011 ZORAIDA ROSE APRNA J 296.33 MO DEPRESSIVE RECURRENT SEVERE W/O PSYCHOTIC BEHAVIOR 07/12/2011 ZORAIDA ROSE APRNA J 296.33 MO DEPRESSIVE RECURRENT SEVERE W/O PSYCHOTIC BEHAVIOR 07/12/2011 ZORAIDA ROSE APRNA J 296.33 MO DEPRESSIVE RECURRENT SEVERE W/O PSYCHOTIC BEHAVIOR 07/12/2011 ZORAIDA ROSE APRNA J 296.33 MO DEPRESSIVE RECURRENT SEVERE W/O PSYCHOTIC BEHAVIOR 07/12/2011 ZORAIDA ROSE APRNA J 296.33 MO DEPRESSIVE RECURRENT SEVERE W/O PSYCHOTIC BEHAVIOR 07/12/2011 ZORAIDA ROSE APRNA J 296.33 MO DEPRESSIVE RECURRENT SEVERE W/O PSYCHOTIC BEHAVIOR 09/15/2011 309.81 AN PTSD 09/15/2011 309.81 AN PTSD 09/15/2011 309.81 AN PTSD 09/15/2011 309.81 AN PTSD 09/15/2011 EUNICE HSU DO 309.81 AN PTSD 09/15/2011 309.81 AN PTSD 09/15/2011 309.81 AN PTSD 09/15/2011 ASHLEY MURPHY APRN 309.81 AN PTSD 09/15/2011 ASHLEY MURPHY APRN 309.81 AN PTSD 09/15/2011 ASHLEY MURPHY APRN 309.81 AN PTSD 09/15/2011 ASHLEY MURPHY APRN 309.81 AN PTSD 09/15/2011 ASHLEY MURPHY APRN 309.81 AN PTSD 09/15/2011 ANIRUDH ROSE APRN J 309.81 AN PTSD 09/15/2011 ANIRUDH ROSE APRN J 309.81 AN PTSD 09/15/2011 ZORAIDA ROSE APRNA J 309.81 AN PTSD 09/15/2011 ZORAIDA ROSE APRNA J 309.81 AN PTSD 09/15/2011 ZORAIDA ROSE APRNA J 309.81 AN PTSD 09/15/2011 ANIRUDH ROSE APRN J 309.81 AN PTSD 09/15/2011 ANIRUDH ROSE APRN J 309.81 AN PTSD 12/15/2011 296.89 MO BIPOLAR II 12/15/2011 296.89 MO BIPOLAR II 12/15/2011 296.89 MO BIPOLAR II 12/15/2011 296.89 MO BIPOLAR II 12/15/2011 EUNICE HSU DO 296.89 MO BIPOLAR II 12/15/2011 296.89 MO BIPOLAR II 12/15/2011 296.89 MO BIPOLAR II 12/15/2011 ASHLEY MURPHY APRN 296.89 MO BIPOLAR II 12/15/2011 ASHLEY MURPHY APRN 296.89 MO BIPOLAR II 12/15/2011 ASHLEY MURPHY APRN 296.89 MO BIPOLAR II 12/15/2011 ASHLEY MURPHY APRN 296.89 MO BIPOLAR II 12/15/2011 ASHLEY MURPHY APRN 296.89 MO BIPOLAR II 12/15/2011 ANIRUDH ROSE APRN 296.89 MO BIPOLAR II 12/15/2011 ANIRUDH ROSE APRN 296.89 MO BIPOLAR II 12/15/2011 ANIRUDH ROSE APRN 296.89 MO BIPOLAR II 12/15/2011 ANIRUDH ROSE APRN 296.89 MO BIPOLAR II 12/15/2011 ANIRUDH ROSE APRN 296.89 MO BIPOLAR II 12/15/2011 ANIRUDH ROSE APRN 296.89 MO BIPOLAR II 12/15/2011 ANIRUDH ROSE APRN 296.89 MO BIPOLAR II 03/08/2012 296.62 MO BIPOLAR I MIXED MODERATE 03/08/2012 296.62 MO BIPOLAR I MIXED MODERATE 03/08/2012 296.62 MO BIPOLAR I MIXED MODERATE 03/08/2012 296.62 MO BIPOLAR I MIXED MODERATE 03/08/2012 EUNICE HSU DO 296.62 MO BIPOLAR I MIXED MODERATE 03/08/2012 296.62 MO BIPOLAR I MIXED MODERATE 03/08/2012 296.62 MO BIPOLAR I MIXED MODERATE 03/08/2012 ASHLEY MURPHY APRN 296.62 MO BIPOLAR I MIXED MODERATE 03/08/2012 ASHLEY MURPHY APRN 296.62 MO BIPOLAR I MIXED MODERATE 03/08/2012 ASHLEY MURPHY APRN 296.62 MO BIPOLAR I MIXED MODERATE 03/08/2012 ASHLEY MURPHY APRN 296.62 MO BIPOLAR I MIXED MODERATE 03/08/2012 ASHLEY MURPHY APRN D 296.62 MO BIPOLAR I MIXED MODERATE 03/08/2012 ANIRUDH ROSE APRN 296.62 MO BIPOLAR I MIXED MODERATE 03/08/2012 ZORAIDA ROSE APRNA J 296.62 MO BIPOLAR I MIXED MODERATE 03/08/2012 ZORAIDA ROSE APRNA J 296.62 MO BIPOLAR I MIXED MODERATE 03/08/2012 ANIRUDH ROSE APRN J 296.62 MO BIPOLAR I MIXED MODERATE 03/08/2012 ZORAIDA ROSE APRNA J 296.62 MO BIPOLAR I MIXED MODERATE 03/08/2012 ANIRUDH ROSE APRN J 296.62 MO BIPOLAR I MIXED MODERATE 03/08/2012 ANIRUDH ROSE APRN J 296.62 MO BIPOLAR I MIXED MODERATE 05/09/2012 285.9 ANEMIA 05/09/2012 285.9 ANEMIA 05/09/2012 285.9 ANEMIA 05/09/2012 285.9 ANEMIA 05/09/2012 EUNICE HSU DO 285.9 ANEMIA 05/09/2012 285.9 ANEMIA 05/09/2012 285.9 ANEMIA 05/09/2012 ASHLEY MURPHY APRN 285.9 ANEMIA 05/09/2012 ASHLEY MURPHY APRN 285.9 ANEMIA 05/09/2012 ASHLEY MURPHY APRN 285.9 ANEMIA 05/09/2012 ASHLEY MURPHY APRN 285.9 ANEMIA 05/09/2012 ASHLEY MURPHY APRN 285.9 ANEMIA 05/09/2012 ZORAIDA ROSE APRNA Lisbeht 285.9 ANEMIA 05/09/2012 ZORAIDA ROSE APRNA J 285.9 ANEMIA 05/09/2012 MILTON AGUILAR, ANIRUDH J 285.9 ANEMIA 05/09/2012 ZORAIDA ROSE APRNA J 285.9 ANEMIA 05/09/2012 MILTON AGUILAR, ANIRUDH J 285.9 ANEMIA 05/09/2012 MILTON AGUILAR, ANIRUDH J 285.9 ANEMIA 05/09/2012 MILTON AGUILAR ANIRUDH J 285.9 ANEMIA 08/09/2012 296.32 MO DEPRESSIVE RECURRENT MODERATE 08/09/2012 296.32 MO DEPRESSIVE RECURRENT MODERATE 08/09/2012 296.32 MO DEPRESSIVE RECURRENT MODERATE 08/09/2012 296.32 MO DEPRESSIVE RECURRENT MODERATE 08/09/2012 EUNICE HSU DO 296.32 MO DEPRESSIVE RECURRENT MODERATE 08/09/2012 296.32 MO DEPRESSIVE RECURRENT MODERATE 08/09/2012 296.32 MO DEPRESSIVE RECURRENT MODERATE 08/09/2012 ASHLEY MURPHY APRN 296.32 MO DEPRESSIVE RECURRENT MODERATE 08/09/2012 ASHLEY MURPHY APRN 296.32 MO DEPRESSIVE RECURRENT MODERATE 08/09/2012 ASHLEY MURPHY APRN 296.32 MO DEPRESSIVE RECURRENT MODERATE 08/09/2012 ASHLEY MURPHY APRN 296.32 MO DEPRESSIVE RECURRENT MODERATE 08/09/2012 ASHLEY MURPHY APRN 296.32 MO DEPRESSIVE RECURRENT MODERATE 08/09/2012 ANIRUDH ROSE APRN 296.32 MO DEPRESSIVE RECURRENT MODERATE 08/09/2012 ANIRUDH ROSE APRN 296.32 MO DEPRESSIVE RECURRENT MODERATE 08/09/2012 ZORAIDA ROSE APRNA Lisbeth 296.32 MO DEPRESSIVE RECURRENT MODERATE 08/09/2012 ZORAIDA ROSE APRNA Lisbeth 296.32 MO DEPRESSIVE RECURRENT MODERATE 08/09/2012 ZORAIDA ROSE APRNA Lisbeth 296.32 MO DEPRESSIVE RECURRENT MODERATE 08/09/2012 ZORAIDA ROSE APRNA Lisbeth 296.32 MO DEPRESSIVE RECURRENT MODERATE 08/09/2012 ANIRUDH ROSE APRN 296.32 MO DEPRESSIVE RECURRENT MODERATE 11/19/2013 ASHLEY MURPHY APRN 305.60 COCAINE ABUSE 11/19/2013 ASHLEY MURPHY APRN 305.60 COCAINE ABUSE 11/19/2013 ASHLEY MURPHY APRN 305.60 COCAINE ABUSE 11/19/2013 MILTON BOARD WORKER, ANIRUDH J 305.60 COCAINE ABUSE 11/19/2013 MILTON BOARD WORKER, ANIRUDH J 305.60 COCAINE ABUSE 11/19/2013 MILTON BOARD WORKER, ANIRUDH J 305.60 COCAINE ABUSE 11/19/2013 MILTON BOARD WORKER, ANIRUDH J 305.60 COCAINE ABUSE 11/19/2013 MILTON BOARD WORKER, ANIRUDH J 305.60 COCAINE ABUSE 11/19/2013 MILTON BOARD WORKER, ANIRUDH J 305.60 COCAINE ABUSE 11/19/2013 MILTON BOARD WORKER, ANIRUDH J 305.60 COCAINE ABUSE 02/05/2015 MILTON BOARD WORKER, ANIRUDH J 296.45 MO BIPOLAR I MANIC PARTIAL OR UNSPEC REMISSION 03/03/2015 Ot 620.2 03/03/2015 Ot 625.8 03/03/2015 Ot 473.9 03/03/2015 Ot 784.0 03/03/2015 Ot 458.0 03/03/2015 Ot 784.0 03/03/2015 ALLAN MEJIA DOA C Ot 793.89 03/03/2015 JACKIE MILLAN MAXIM C Ot V76.12 03/03/2015 JACKIE MILLAN MAXIM C Ot 793.89 03/03/2015 LETICIA DIETRICH, ERIC S Ot 611.72 03/03/2015 LETICIA DIETRICH, ERIC S Ot V64.3 03/03/2015 LETICIA DIETRICH, ERIC S Ot 611.72 03/03/2015 LETICIA DIETRICH, ERIC S Ot V72.63 03/03/2015 LETICIA DIETRICH, ERIC S Ot V72.83 03/03/2015 LETICIA DIETRICH, ERIC S Ot V74.8 03/03/2015 MALIKA DIETRICH, DEVIN Ot 611.72 03/03/2015 MALIKA DIETRICH, DEVIN Ot 611.72 03/03/2015 MALIKA DIETRICH, DEVIN Ot V72.63 03/03/2015 MALIKA DIETRICH, DEVIN Ot V74.8 03/18/2015 Ot 620.2 03/18/2015 Ot 625.8 03/18/2015 Ot 473.9 03/18/2015 Ot 784.0 03/18/2015 Ot 458.0 03/18/2015 Ot 784.0 03/18/2015 JACKIE MILLAN MAXIM C Ot 793.89 03/18/2015 JACKIE MILLAN MAXIM C Ot V76.12 03/18/2015 MEJIA DO, MAXIM C Ot 793.89 03/18/2015 LETICIA DIETRICH, ERIC S Ot 611.72 03/18/2015 LETICIA DIETRICH, ERIC S Ot V64.3 03/18/2015 LETICIA DIETRICH, ERIC S Ot 611.72 03/18/2015 LETICIA DIETRICH, ERIC S Ot V72.63 03/18/2015 LETICIA DIETRICH, ERIC S Ot V72.83 03/18/2015 LETICIA DIETRICH, ERIC S Ot V74.8 03/18/2015 MALIKA DIETRICH, DEVIN Ot 611.72 03/18/2015 MALIKA DIETRICH, DEVIN Ot 611.72 03/18/2015 MALIKA DIETRICH, DEVIN Ot V72.63 03/18/2015 MALIKA DIETRICH, DEVIN Ot V74.8 03/18/2015 MEJIA DOMAXIM Ot V76.12 03/26/2015 MEJIA DOALLANA C Ot V76.12 04/08/2015 MEJIA DOALLANA C Ot 793.89 04/09/2015 MEJIA DOALLANA C Ot 611.72 04/09/2015 MEJIA DO MAXIM C Ot V76.12 04/21/2015 MEJIA ALLAN MILLANA Jose L Ot 793.89 04/23/2015 RADHA AC DO Ot 610.2 FIBROADENOSIS OF BREAST 04/23/2015 RADHA AC DO Ot 610.3 FIBROSCLEROSIS OF BREAST 04/23/2015 RADHA AC DO Ot 610.4 MAMMARY DUCT ECTASIA 04/23/2015 RADHA AC DO Ot 610.8 BENIGN MAMM DYSPLAS NEC 05/05/2015 SEKOU SUAZO DO Ot 300.00 ANXIETY STATE NOS 05/05/2015 SEKOU SUAZO DO Ot 780.4 DIZZINESS AND GIDDINESS 05/06/2015 STANISLAV VILLEGAS DO Ot 786.50 05/08/2015 MAXIM MEJIA DO Ot 611.72 05/12/2015 STANISLAV VILLEGAS DO Ot 786.50 05/27/2015 MAXIM MEJIA DO Ot 611.72 05/18/2016 Ot 620.2 OVARIAN CYST NEC/NOS 05/18/2016 Ot 625.8 FEM GENITAL SYMPTOMS NEC 05/18/2016 Ot 473.9 CHRONIC SINUSITIS NOS 05/18/2016 Ot 784.0 HEADACHE 05/18/2016 Ot 458.0 ORTHOSTATIC HYPOTENSION 05/18/2016 Ot 784.0 HEADACHE 05/18/2016 JACKIE MILLAN MAXIM C Ot 793.89 OTH (ABN) FINDINGS ON RADIOLOGICAL EXAMI 05/18/2016 MEJIAMAXIM Alamo DO Ot V76.12 OTH SCREEN MAMMO-MALIGN NEOPLASM OF AMAYA 05/18/2016 JACKIE MAXIM MILLAN Ot 793.89 OTH (ABN) FINDINGS ON RADIOLOGICAL EXAMI 05/18/2016 ERIC KELLY MD Ot 611.72 LUMP OR MASS IN BREAST 05/18/2016 ERIC KELLY MD Ot V64.3 NO PROC FOR REASONS NEC 05/18/2016 ERIC KELLY MD Ot 611.72 LUMP OR MASS IN BREAST 05/18/2016 ERIC KELLY MD Ot V72.63 PRE-PROCEDURAL LABORATORY EXAMINATION 05/18/2016 ERIC KELLY MD Ot V72.83 EXAM PRE-OPERATIVE NEC 05/18/2016 ERIC KELLY MD Ot V74.8 SCREEN-BACTERIAL DIS NEC 05/18/2016 DEVIN DALY MD Ot 611.72 LUMP OR MASS IN BREAST 05/18/2016 DEVIN DALY MD Ot 611.72 LUMP OR MASS IN BREAST 05/18/2016 DEVIN DALY MD Ot V72.63 PRE-PROCEDURAL LABORATORY EXAMINATION 05/18/2016 DEVIN DALY MD Ot V74.8 SCREEN-BACTERIAL DIS NEC 05/18/2016 MAXIM MEJIA DO Ot V76.12 OTH SCREEN MAMMO-MALIGN NEOPLASM OF AMAYA 05/18/2016 MEJIAMAXIM Alamo DO Ot 793.89 OTH (ABN) FINDINGS ON RADIOLOGICAL EXAMI 05/18/2016 MAXIM MEJIA DO Ot 611.72 LUMP OR MASS IN BREAST 05/18/2016 STANISLAV VILLEGAS DO Ot 786.50 CHEST PAIN NOS 05/18/2016 RADHA AC DO Ot 793.81 MAMMOGRAPHIC MICROCLACIFICATION 05/18/2016 MIKE AC DOROUTIE Ot V72.84 EXAM PRE-OPERATIVE NOS 05/19/2016 MEJIA MAXIM Ot Z12.31 ENCNTR SCREEN MAMMOGRAM FOR MALIGNANT NE 05/19/2016 JACKIE MILLAN MAXIM C Ot Z98.89 OTHER SPECIFIED POSTPROCEDURAL STATES 05/19/2016 JACKIE MILLAN MAXIM Jose L Ot Z12.31 ENCNTR SCREEN MAMMOGRAM FOR MALIGNANT NE 05/19/2016 JACKIE MILLAN MAXIM C Ot Z98.89 OTHER SPECIFIED POSTPROCEDURAL STATES 06/10/2016 JACKIE MILLAN MAXIM Jose L Ot Z12.31 ENCNTR SCREEN MAMMOGRAM FOR MALIGNANT NE 06/10/2016 JACKIE MILLANMAXIM Ot Z98.89 OTHER SPECIFIED POSTPROCEDURAL STATES 08/02/2016 SEKOU SUAZO DO Ot F17.210 NICOTINE DEPENDENCE, CIGARETTES, UNCOMPL 08/02/2016 SEKOU SUAZO DO Ot M79.1 MYALGIA 08/02/2016 SEKOU SUAZO DO Ot Z79.899 OTHER [employer] (CURRENT) DRUG THERAPY 08/03/2016 LUBNA DIETRICH, FREDDY Ramírez Ot T50.B95A ADVERSE EFFECT OF OTHER VIRAL VACCINES, 08/04/2016 FREDDY CALVO MD Ot T50.B95A ADVERSE EFFECT OF OTHER VIRAL VACCINES, 08/04/2016 MAXIM MEJIA DO Ot V76.12 OTH SCREEN MAMMO-MALIGN NEOPLASM OF [place] 08/04/2016 MAXIM MEJIA DO Ot 793.89 OTH (ABN) FINDINGS ON RADIOLOGICAL EXAMI 08/04/2016 MAXIM MEJIA DO Ot 611.72 LUMP OR MASS IN BREAST 08/04/2016 STANISLAV VILLEGAS DO Ot 786.50 CHEST PAIN NOS 08/04/2016 RADHA AC DO Ot 793.81 MAMMOGRAPHIC MICROCLACIFICATION 08/04/2016 RADHA AC DO Ot V72.84 EXAM PRE-OPERATIVE NOS 08/04/2016 MEJIA MAXIM Ot Z12.31 ENCNTR SCREEN MAMMOGRAM FOR MALIGNANT NE 08/04/2016 MAXIM MEJIA DO Ot Z98.89 OTHER SPECIFIED POSTPROCEDURAL STATES 06/14/2018 MAXIM MEJIA DO Ot R92.0 MAMMOGRAPHIC MICROCALCIFICATION FOUND ON 06/20/2018 MAXIM MEJIA DO Ot R92.8 OTH ABN AND INCONCLUSIVE FINDINGS ON DX 06/24/2018 MAXIM MEJIA DO Ot 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 06/24/2018 MAXIM MEJIA DO Ot N60.91 UNSPECIFIED BENIGN MAMMARY DYSPLASIA OF 06/24/2018 MAXIM MEJIA DO Ot R92.0 MAMMOGRAPHIC MICROCALCIFICATION FOUND ON 06/26/2018 MAXIM MEJIA DO Ot 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 06/26/2018 MAXIM MEJIA DO Ot N60.91 UNSPECIFIED BENIGN MAMMARY DYSPLASIA OF 06/26/2018 MAXIM MEJIA DO Ot R92.0 MAMMOGRAPHIC MICROCALCIFICATION FOUND ON 07/05/2018 Ot R92.1 MAMMOGRAPHIC CALCIFCN FOUND ON DIAGNOSTI 07/05/2018 Ot Z12.31 ENCNTR SCREEN MAMMOGRAM FOR MALIGNANT NE 07/05/2018 Ot Z98.890 OTHER SPECIFIED POSTPROCEDURAL STATES 07/06/2018 MAXIM MEJIA DO Ot R92.0 MAMMOGRAPHIC MICROCALCIFICATION FOUND ON 07/12/2018 MAXIM MEJIA DO Ot 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 07/12/2018 MAXIM MEJIA DO Ot N60.91 UNSPECIFIED BENIGN MAMMARY DYSPLASIA OF 07/12/2018 MAXIM MEJIA DO Ot R92.0 MAMMOGRAPHIC MICROCALCIFICATION FOUND ON 03/25/2019 MAXIM MEJIA DO Ot V76.12 OTH SCREEN MAMMO-MALIGN NEOPLASM OF [place]MA[place] 03/25/2019 MAXIM MEJIA DO Ot 793.89 OTH (ABN) FINDINGS ON RADIOLOGICAL EXAMI 03/25/2019 MAXIM MEJIA DO Ot 611.72 LUMP OR MASS IN BREAST 03/25/2019 STANISLAV VILLEGAS DO Ot 786.50 CHEST PAIN NOS 03/25/2019 RADHA AC DO Ot 793.81 MAMMOGRAPHIC MICROCLACIFICATION 03/25/2019 RADHA AC DO Ot V72.84 EXAM PRE-OPERATIVE NOS 03/25/2019 JACKIE MILLAN MAXIM C Ot Z12.31 ENCNTR SCREEN MAMMOGRAM FOR MALIGNANT NE 03/25/2019 MEJIA DOMAXIM Ot Z98.89 OTHER SPECIFIED POSTPROCEDURAL STATES 03/25/2019 Ot R92.1 MAMMOGRAPHIC CALCIFCN FOUND ON DIAGNOSTI 03/25/2019 Ot Z12.31 ENCNTR SCREEN MAMMOGRAM FOR MALIGNANT NE 03/25/2019 Ot Z98.890 OTHER SPECIFIED POSTPROCEDURAL STATES 03/25/2019 MEJIA DO, MAXIM C Ot R92.0 MAMMOGRAPHIC MICROCALCIFICATION FOUND ON 03/25/2019 MEJIA DO, MAXIM C Ot 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 03/25/2019 MEJIA DO, MAXIM C Ot N60.91 UNSPECIFIED BENIGN MAMMARY DYSPLASIA OF 03/25/2019 MEJIA DOMAXIM C Ot R92.0 MAMMOGRAPHIC MICROCALCIFICATION FOUND ON 03/25/2019 MEJIA DO, MAXIM C Ot Z98.890 OTHER SPECIFIED POSTPROCEDURAL STATES 03/26/2019 MEJIA DO, MAXIM C Ot Z98.890 OTHER SPECIFIED POSTPROCEDURAL STATES 03/26/2019 MEJIA DO, MAXIM C Ot Z98.890 OTHER SPECIFIED POSTPROCEDURAL STATES Procedures Code Description [place] [id number] PSYCH PHARM MGMT 09/07/2012 [id number] PSYCH PHARM MGMT 09/22/2012 Results Test Result Range PDM - ATS (PROFILE 8 WITH CONFIRMATION) - 01/02/18 09:59 Creatinine 107.0 mg/dL > or=20.0 pH 7.46 4.5 - 9.0 Oxidant NEGATIVE mcg/mL <200 Amphetamines NEGATIVE ng/mL <500 medMATCH Amphetamines CONSISTENT NRG Benzodiazepines POSITIVE ng/mL <100 Marijuana Metabolite NEGATIVE ng/mL <20 medMATCH Marijuana Metab CONSISTENT NRG Cocaine Metabolite POSITIVE ng/mL <150 Opiates NEGATIVE ng/mL <100 medMATCH Opiates CONSISTENT NRG Oxycodone NEGATIVE ng/mL <100 medMATCH Oxycodone CONSISTENT NRG COMMENT NRG Buprenorphine NEGATIVE CONFIRMED ng/mL <5 Buprenorphine NEGATIVE ng/mL <2 medMATCH Buprenorphine CONSISTENT NRG Norbuprenorphine NEGATIVE ng/mL <2 medMATCH Norbuprenorphine CONSISTENT NRG MDMA NEGATIVE ng/mL <500 medMATCH MDMA CONSISTENT NRG Alcohol Metabolites NEGATIVE ng/mL <500 medMATCH Alcohol Metab CONSISTENT NRG 6 Acetylmorphine NEGATIVE ng/mL <10 medMATCH 6 Acetylmorphine CONSISTENT NRG Alphahydroxyalprazolam NEGATIVE ng/mL <25 medMATCH aOH alprazolam CONSISTENT NRG Alphahydroxymidazolam NEGATIVE ng/mL <50 [facility] a[facility] midazolam CONSISTENT NRG Alphahydroxytriazolam NEGATIVE ng/mL <50 [facility]MATCH aOH triazolam CONSISTENT NRG Aminoclonazepam 401 ng/mL <25 [facility]MATCH Aminoclonazepam INCONSISTENT NRG Hydroxyethylflurazepam NEGATIVE ng/mL <50 medMATCH [place],Et flurazepam CONSISTENT NRG Lorazepam NEGATIVE ng/mL <50 [facility] Lorazepam CONSISTENT NRG Nordiazepam NEGATIVE ng/mL <50 [facility]MATCH Nordiazepam CONSISTENT NRG Oxazepam NEGATIVE ng/mL <50 [facility]MATCH Oxazepam CONSISTENT NRG Temazepam NEGATIVE ng/mL <50 [facility]MATCH Temazepam CONSISTENT NRG Benzoylecgonine >41896 ng/mL <100 [facility]MATCH Benzoylecgonine INCONSISTENT NRG CMP - 01/14/19 15:20 GLUCOSE 99 mg/dL 65-99 UREA NITROGEN (BUN) 14 mg/dL 7-25 CREATININE 0.82 mg/dL 0.50-1.10 eGFR NON-AFR. ETHIOPIAN 86 mL/min/1.73m2 > OR=60 eGFR 100 mL/min/1.73m2 > OR=60 BUN/CREATININE RATIO NOT APPLICABLE (calc) 6-22 SODIUM 138 mmol/L 135-146 POTASSIUM 3.2 mmol/L 3.5-5.3 CHLORIDE 100 mmol/L 98-110 CARBON DIOXIDE 26 mmol/L 20-32 CALCIUM 10.2 mg/dL 8.6-10.2 PROTEIN, TOTAL 7.3 g/dL 6.1-8.1 ALBUMIN 4.4 g/dL 3.6-5.1 GLOBULIN 2.9 g/dL (calc) 1.9-3.7 ALBUMIN/GLOBULIN RATIO 1.5 (calc) 1.0-2.5 BILIRUBIN, TOTAL 0.2 mg/dL 0.2-1.2 ALKALINE PHOSPHATASE 68 U/L 33-115 AST 12 U/L 10-35 ALT 13 U/L 6-29 CBC - 01/14/19 15:20 WHITE BLOOD CELL COUNT 14.4 Thousand/uL 3.8-10.8 RED BLOOD CELL COUNT 4.93 Million/uL 3.80-5.10 HEMOGLOBIN 16.4 g/dL 11.7-15.5 HEMATOCRIT 47.0 % 35.0-45.0 MCV 95.3 fL 80.0-100.0 MCH 33.3 pg 27.0-33.0 MCHC 34.9 g/dL 32.0-36.0 RDW 12.8 % 11.0-15.0 PLATELET COUNT 370 Thousand/uL 140-400 MPV 10.5 fL 7.5-12.5 ABSOLUTE NEUTROPHILS 8784 cells/uL 7431-0515 ABSOLUTE LYMPHOCYTES 4752 cells/uL 850-3900 ABSOLUTE MONOCYTES 677 cells/uL 200-950 ABSOLUTE EOSINOPHILS 144 cells/uL 15-500 ABSOLUTE BASOPHILS 43 cells/uL 0-200 NEUTROPHILS 61 % NRG LYMPHOCYTES 33.0 % NRG MONOCYTES 4.7 % NRG EOSINOPHILS 1.0 % NRG BASOPHILS 0.3 % NRG Encounters ACCT No. Visit Date/Time Discharge Status Pt. Type Provider Facility Loc./Unit Complaint [id number] 02/05/2015 09:17:00 02/05/2015 23:59:59 CLS Outpatient ANIRUDH ROSE APRN [id number] 01/01/2015 13:37:00 01/01/2015 23:59:59 CLS Outpatient ANIRUDH ROSE APRN [id number] 01/01/2015 13:37:00 01/01/2015 23:59:59 CLS Outpatient ANIRUDH ROSE APRN [id number] 08/19/2014 10:57:00 08/19/2014 23:59:59 CLS Outpatient ANIRUDH ROSE APRN [id number] 08/19/2014 10:57:00 08/19/2014 23:59:59 CLS Outpatient ANIRUDH ROSE APRN [id number] 06/19/2014 12:52:00 06/19/2014 23:59:59 CLS Outpatient ANIRUDH ROSE APRN [id number] 06/19/2014 12:52:00 06/19/2014 23:59:59 CLS Outpatient ANIRUDH ROSE APRN [id number] 02/18/2014 12:52:00 02/18/2014 23:59:59 CLS Outpatient ASHLEY MURPHY APRN [id number] 02/18/2014 12:52:00 02/18/2014 23:59:59 CLS Outpatient ASHLEY MURPHY APRN [id number] 11/19/2013 12:04:00 11/19/2013 23:59:59 CLS Outpatient ASHLEY MURPHY APRN [id number] 08/15/2013 09:51:00 08/15/2013 23:59:59 CLS Outpatient ASHLEY MURPHY APRN [id number] 05/16/2013 09:55:00 05/16/2013 23:59:59 CLS Outpatient ASHLEY MURPHY APRN [id number] 12/20/2012 11:38:00 12/20/2012 23:59:59 CLS Outpatient EUNICE HSU DO [id number] 09/22/2012 09:49:00 09/22/2012 23:59:59 CLS Outpatient [id number] 09/22/2012 09:49:00 09/22/2012 23:59:59 CLS Outpatient [id number] 09/07/2012 11:01:00 09/07/2012 23:59:59 CLS Outpatient [id number] 09/07/2012 00:00:00 09/07/2012 23:59:59 CLS Outpatient [id number] 05/16/2013 09:55:00 Document Registration [id number] 02/14/2013 13:36:00 Document Registration [id number] 03/26/2019 14:45:00 03/26/2019 23:59:59 CLS Preadmit RAVIN DIETRICH, OMARI Bob [facility] RAD MIXED HYPERLIPIDEMIA, MR, PALPITATIONS, DIABETES [id number] 03/21/2019 09:00:00 03/21/2019 23:59:59 CLS Preadmit MAXIM MEJIA DO [facility] RAD HX OF RT BREAST BIOPSY. [id number] 06/20/2018 10:08:00 06/20/2018 23:59:59 CLS Outpatient MAXIM MEJIA DO [facility] RAD R92.8 ABN MAMMO [id number] 06/13/2018 09:49:00 06/13/2018 23:59:59 CLS Outpatient MAXIM MEJIA DO [facility] RAD ABNORMAL MAMMOGRAM [id number] 08/03/2016 14:19:00 08/03/2016 15:36:00 DIS Emergency FREDDY CALVO MD [facility] ER RASH [id number] 08/02/2016 08:54:00 08/02/2016 09:55:00 DIS Emergency LAKEISHA SEKOU MILLAN Hernan [facility] ER POSS REACTION TO PNEUMONIA SHOT [id number] 05/18/2016 08:42:00 05/18/2016 23:59:59 CLS Outpatient MAXIM MEJIA DO [facility] RAD SCREENING [id number] 05/04/2015 21:57:00 05/05/2015 00:04:00 DIS Emergency LAKEISHA DO SEKOU Hernan [facility] ER ABNORMAL BLOOD PRESSURE/PULSE [id number] 04/23/2015 06:59:00 04/23/2015 15:40:00 DIS Outpatient RADHA AC DO [facility] RAD BREAST MASS [id number] 04/21/2015 06:47:00 04/21/2015 23:59:59 CLS Outpatient RADHA AC DO [facility] PREOP RIGHT BREAST MASS [id number] 04/10/2015 06:44:00 04/10/2015 23:59:59 CLS Outpatient STANISLAV VILLEGAS DO [facility] CARD CHEST PAIN [id number] 04/07/2015 09:38:00 04/07/2015 23:59:59 CLS Outpatient MAXIM MEJIA DO [facility] RAD ABNORMAL MAMMO [id number] 03/18/2015 12:45:00 03/18/2015 23:59:59 CLS Outpatient MAXIM MEJIA DO [facility] RAD ABNORMAL MAMMO [id number] 03/03/2015 09:29:00 03/03/2015 23:59:59 CLS Outpatient MAXIM MEJIA DO [facility] RAD SCREENING [id number] 07/04/2013 06:35:00 07/04/2013 23:59:59 CLS Outpatient DEVIN DALY MD [facility] SDC [id number] 07/02/2013 10:14:00 07/02/2013 23:59:59 CLS Outpatient DEVIN DALY MD [facility] PREOP [id number] 04/03/2013 07:41:00 04/03/2013 23:59:59 CLS Outpatient ERIC KELLY MD [facility] RAD [id number] 03/19/2013 09:45:00 03/19/2013 23:59:59 CLS Outpatient ERIC KELLY MD [facility] PREOP [id number] 03/13/2013 13:36:00 03/13/2013 23:59:59 CLS Outpatient MAXIM MEJIA DO [facility] RAD [id number] 02/25/2013 09:45:00 02/25/2013 23:59:59 CLS Outpatient JACKIE MILLAN MAXIM C [facility] RAD [id number] 05/29/2018 13:02:00 Document Registration [id number] 05/24/2012 11:35:00 Document Registration [id number] 05/23/2012 07:39:00 Document Registration [id number] 05/22/2012 14:37:00 Document Registration [id number] 11/22/2011 14:04:00 Document Registration [id number] 08/01/2011 16:07:00 Document Registration [id number] 01/25/2011 12:02:00 Document Registration [id number] 03/19/2019 14:20:00 03/19/2019 23:59:59 CLS Outpatient [facility] [id number] 01/14/2019 14:20:00 Document Registration [id number] 01/02/2018 09:40:00 Document Registration
[2019-04-20] MEDS ORDERED: MECL-106 PO (14:42)
[2019-04-20] MEDS ORDERED: AMOX-358 PO (14:42)
--- NOTE | 2019-04-20 14:43 | ED Headache ---
General Chief Complaint: Head/Cervical Problems Stated Complaint: DIZZY / HEADACHE Nursing Triage Note: PMB TO TRIAGE WITH COMPLAINT OF HEADACHE, DIZZINESS, CONGESTION, AND SWOLLEN EYES FOR 3 DAYS. STATES SHE FEELS IT COULD BE A SINUS INFECTION. Nursing Sepsis Screen: No Definite Risk Source: patient Exam Limitations: no limitations History of Present Illness Date Seen by Provider: Apr 20, 2019 Time Seen by Provider: 14:40 Initial Comments To ER with reports of a headache that is occipital and frontal in location for 3 days associated with dizziness upon movement, nasal congestion. She suspects a sinus infection. No fevers or chills. No nausea or vomiting. Timing/Duration: other (3 days) Severity/Quality: constant, pressure Location: frontal, occipital Prior Headaches/Recent Trauma: no recent headache/trauma Associated Symptoms: No nausea/vomiting; nasal congestion; No seizures; sinus infection Allergies and Home Medications Allergies Coded Allergies: lithium (Unverified Allergy, Mild, 09/06/09) meperidine (Unverified Allergy, Mild, 09/06/09) morphine (Unverified Allergy, Mild, 09/06/09) nitrofurantoin (Unverified Allergy, Mild, 09/06/09) adhesive (Unverified Allergy, Unknown, HIVES, 04/21/15) Uncoded Allergies: HONEY BEES (Allergy, Unknown, 08/03/16) RIMERONE (Allergy, Unknown, 08/03/16) Home Medications Amoxicillin/Potassium Clav 1 Each Tablet, 1 EACH PO BID Prescribed by: PERCY PHELAN on 04/20/19 144 Cephalexin 500 Mg Capsule, 500 MG PO TID Prescribed by: FREDDY CALVO on 08/03/16 1515 Cholecalciferol 1,000 Unit Tablet, 1,000 UNIT PO BID, (Reported) Clonazepam 1 Mg Tablet, 1 MG PO TID PRN, (Reported) PRN ANXIETY Esomeprazole Mag Trihydrate 40 Mg Capsule.dr, 40 MG PO DAILY, (Reported) Meclizine HCl 25 Mg Tablet, 25 MG PO TID PRN for DIZZINESS Prescribed by: PERCY PHELAN on 04/20/19 144 Midodrine Hcl 10 Mg Tablet, 10 MG PO TID, (Reported) Multivits W-Fe,Other Min/Lut 1 Each Tablet, 1 TAB PO DAILY, (Reported) Naproxen 500 Mg Tablet, 500 MG PO BID Prescribed by: SEKOU SUAZO on 08/02/16 0944 Oxybutynin Chloride 15 Mg Tab.osm.24, 15 MG PO DAILY, (Reported) Potassium Chloride 20 Meq Tab.prt.sr, 20 MEQ PO DAILY, (Reported) Quetiapine Fumarate 300 Mg Tab.sr.24h, 300 MG PO HS, (Reported) Topiramate 100 Mg Tablet, 100 MG PO BID, (Reported) Trazodone Hcl 100 Mg Tablet, 200 MG PO HS, (Reported) TAKES 2 OF THE 100MG TABS AT BEDTIME Trimethoprim 100 Mg Tablet, 100 MG PO HS, (Reported) Patient Home Medication List Home Medication List Reviewed: Yes Review of Systems Review of Systems Constitutional: see HPI Eyes: No Symptoms Reported Ears, Nose, Mouth, Throat: no symptoms reported Respiratory: no symptoms reported Genitourinary: no symptoms reported Musculoskeletal: no symptoms reported Skin: no symptoms reported Psychiatric/Neurological: No Symptoms Reported Past Ltfgein-Fpmotp-Orwlac Hx Patient Social History Alcohol Use: Occasionally Uses Recreational Drug Use: Yes (COCAINE) Smoking Status: Current Everyday Smoker Type Used: Cigarettes Recent Foreign Travel: No Contact w/Someone Who Travel: No Recent Infectious Disease Expo: No Recent Hopitalizations: No Immunizations Up To Date Tetanus Booster (TDap): Less than 5yrs Date of Pneumonia Vaccine: Aug 01, 2016 Date of Influenza Vaccine: Aug 02, 2016 Seasonal Allergies Seasonal Allergies: No Past Medical History Surgeries: Yes Bladder Surgery, Breast, Gallbladder, Lumpectomy, Orthopedic Respiratory: No Cardiac: Yes (LOW B/P, SHARPE SYNDROME) Hypotension Neurological: No Female Reproductive Disorders: Ovarian Cyst Kidney Infection, Bladder Infection, UTI-Chronic Gastrointestinal: Yes (SPASTIC BOWEL) Gastroesophageal Reflux, Irritable Bowel Musculoskeletal: Yes (FX OF BILAT HIPS/PELVIS/BACK) Chronic Back Pain, Fractures Endocrine: No Cancer: No Psychosocial: Yes (PAINIC ATTACKS) Anxiety, Bipolar, Personality Disorder, Depression Integumentary: No Blood Disorders: No Adverse Reaction/Blood Tranf: No Physical Exam Vital Signs Vital Signs - First Documented 04/20/19 13:59 Temp 97.8 Pulse 91 Resp 16 B/P (MAP) 120/80 (93) Pulse Ox 97 O2 Delivery Room Air Capillary Refill : Less Than 3 Seconds Height, Weight, BMI Height: 5'1.00" Weight: 130lbs. oz. 58.970417bt; 26.45 BMI Method:Stated General Appearance: WD/WN, no apparent distress HEENT: PERRL/EOMI, normal ENT inspection, TMs normal Neck: non-tender, full range of motion Respiratory: normal breath sounds, no respiratory distress, no accessory muscle use Gastrointestinal: normal bowel sounds, non tender Extremities: normal range of motion, non-tender Psychiatric: alert, oriented x 3 Crainal Nerves: normal hearing, normal speech, PERRL Skin: normal color, warm/dry Progress/Results/Core Measures Results/Orders My Orders Orders - PERCY PHELAN APRN Ct Head Wo (04/20/19 14:37) Butalbital/Apap/Caffeine Tab (Fioricet T (04/20/19 14:45) Meclizine Tablet (Antivert Tablet) (04/20/19 14:45) Vital Signs/I&O 04/20/19 13:59 Temp 97.8 Pulse 91 Resp 16 B/P (MAP) 120/80 (93) Pulse Ox 97 O2 Delivery Room Air Blood Pressure Mean: 93 Departure Impression Primary Impression: Sinusitis Qualified Codes: J01.10 - Acute frontal sinusitis, unspecified Additional Impressions: Headache Qualified Codes: R51 - Headache Dizziness Disposition: 01 HOME, SELF-CARE Condition: Stable Departure-Patient Inst. Decision time for Depature: 14:41 Referrals: STANISLAV VILLEGAS DO (PCP/Family) Primary Care Physician Patient Instructions: Headache, Adult (DC), Sinusitis, Adult (DC) Add. Discharge Instructions: 1. Antibiotics as directed 2. Return to ER for any concerns 3. Follow-up with your doctor next week All discharge instructions reviewed with patient and/or family. Voiced understanding. Scripts Amoxicillin/Potassium Clav (Augmentin 875-125 Tablet) 1 Each Tablet 1 EACH PO BID, #14 TAB 0 Refills Prov: PERCY PHELAN APRN 04/20/19 Meclizine HCl (Meclizine HCl) 25 Mg Tablet 25 MG PO TID PRN for DIZZINESS, #10 TAB Prov: PERCY PHELAN APRN 04/20/19 PERCY PHELAN APRN Apr 20, 2019 14:43
[2019-04-20] MEDS ORDERED: MECLIZINE 25 MG (ANTIVERT) TAB PO ONE (14:45)
[2019-04-20] MEDS ORDERED: ACET/BUTAL/CAFF (FIORICET) TAB PO PRN (14:45)
--- NOTE | 2019-04-20 15:07 | Diagnostic Imaging Report ---
Procedure: CT head without contrast. Technique: Multiple contiguous axial images were obtained through the brain without the use of intravenous contrast. Auto Exposure Controls were utilized during the CT exam to meet ALARA standards for radiation dose reduction. Indication: Headache and dizziness with swollen eyes for three days. Comparison: 05/24/2012. Discussion: No adverse interval change. No intracranial hemorrhage, mass, midline shift or hydrocephalus. The ventricles and sulci are normal size and configuration for age. The visualized orbits, paranasal sinuses, mastoid air cells and calvarium are unremarkable. Impression: Stable negative head CT. Dictated by: Dictated on workstation # [id number]
[2019-04-20 15:34] VITALS: BP 120/80
== END 2019-04-20 15:34 | disposition home or self-care (01) ==
LOC: EDUNIT# 13:53 → ER 13:55
DX: J32.9 Chronic sinusitis, unspecified (principal); R42 Dizziness and giddiness; F14.10 Cocaine abuse, uncomplicated; K21.9 Gastro-esophageal reflux disease without esophagitis; K58.9 Irritable bowel syndrome, unspecified; F31.9 Bipolar disorder, unspecified; F41.0 Panic disorder [episodic paroxysmal anxiety]; F60.9 Personality disorder, unspecified; F17.210 Nicotine dependence, cigarettes, uncomplicated; Z87.442 Personal history of urinary calculi; Z88.8 Allergy status to other drugs, medicaments and biological substances; Z88.5 Allergy status to narcotic agent
CPT/HCPCS: 70450

== ENCOUNTER → 2019-12-31 | Outpatient (CLI) | payer MEDICARE ==
[~2019-12-31] MED LIST changes: +AMOX-358 PO; +MECL-149 PO
--- NOTE | 2019-12-31 13:49 | Diagnostic Imaging Report ---
INDICATION: Routine screening. COMPARISON: 05/29/2018 and 05/18/2016. TECHNIQUE: 2D and 3D bilateral screening mammography was performed with CAD. FINDINGS: Both breasts remain heterogeneously dense, limiting the sensitivity of mammography. Biopsy changes in the left breast are noted. There are two marker clips in place. A lateral clip appears to be just below the skin surface. The calcifications appear to be stable. The left breast appears stable. No new mass or malignant appearing microcalcifications are seen. The axillae are unremarkable. IMPRESSION: No mammographic features suspicious for malignancy are identified. ACR BI-RADS Category 2: Benign findings. Result letter will be mailed to the patient. Note: At least 10% of breast cancer is not imaged by mammography. Dictated by: Dictated on workstation # [id number]
== END ==
LOC: RAD 09:55
PROVIDERS: ATTEND Obstetrics & Gynecology
DX: Z12.31 Encounter for screening mammogram for malignant neoplasm of breast (principal)
CPT/HCPCS: 77067

== ENCOUNTER 2020-10-11 12:43 | Emergency (ER) | payer MEDICARE | END 2020-10-11 13:11 | disposition left against medical advice (07) | LOC: EDUNIT# 12:43 → ER 12:47 | DX: N76.0 Acute vaginitis (principal) ==

== ENCOUNTER → 2021-02-23 | Outpatient (CLI) | payer MEDICARE ==
--- NOTE | 2021-02-23 13:09 | Diagnostic Imaging Report ---
INDICATION: Routine screening. COMPARISON: 12/31/2019 and 05/29/2018. TECHNIQUE: 2D and 3D bilateral screening mammography was performed with CAD. FINDINGS: Both breasts are heterogeneously dense, limiting the sensitivity of mammography. Post biopsy changes in the right breast are again noted. There are two marker clips in place. The overall parenchymal pattern appears to be fairly stable. No new mass or malignant appearing microcalcifications are seen. The axillae are unremarkable. IMPRESSION: No mammographic features suspicious for malignancy are identified. ACR BI-RADS Category 2: Benign findings. Result letter will be mailed to the patient. Note: At least 10% of breast cancer is not imaged by mammography. Dictated by: Dictated on workstation # [id number]
== END ==
LOC: RAD 07:30
PROVIDERS: ATTEND Obstetrics & Gynecology
DX: Z12.31 Encounter for screening mammogram for malignant neoplasm of breast (principal)
CPT/HCPCS: 77063; 77067

== ENCOUNTER → 2021-05-10 | Outpatient (CLI) | payer MEDICARE ==
--- NOTE | 2021-05-10 17:12 | Diagnostic Imaging Report ---
TECHNIQUE: Multiple real-time grayscale images were obtained over the right lower extremity in various projections. Additional duplex Doppler and color Doppler images were also obtained. HISTORY: Abnormal life line screening assessment of the right leg COMPARISON: None FINDINGS: Right lower extremity: The major arteries of the right leg are patent to the ankle. There is detectable flow at the dorsalis pedis and posterior tibial arteries at the ankle. Multiphasic waveform is present throughout the right lower extremity arterial system. Did become slightly dampened biphasic below the tibial peroneal trifurcation. There is no focal velocity changes to suggest a hemodynamically significant stenosis. IMPRESSION: 1. Patent right lower extremity arterial system. There is no large vessel occlusion or hemodynamically significant stenosis in the right lower extremity. Dictated by: Dictated on workstation # [id number]
== END ==
LOC: RAD 13:00
PROVIDERS: ATTEND Internal Medicine
DX: Z13.6 Encounter for screening for cardiovascular disorders (principal)
CPT/HCPCS: 93926

== ENCOUNTER → 2021-06-18 | Outpatient (CLI) | payer MEDICARE ==
[~2021-06-18] MED LIST changes: +CATHETER FLUSH 10 ML SYR IV PRN
[2021-06-18 08:15] VITALS: BP 109/93
--- NOTE | 2021-06-22 13:22 | STRESS TEST ---
DATE OF SERVICE: 06/18/2021 RESTING AND POST EXERCISE TECHNETIUM-99M TETROFOSMIN SPECT CT IMAGING ORDERING PHYSICIAN: Dr. Veronica. PRIMARY PHYSICIAN: Dr. Veronica. CLINICAL DIAGNOSES: Peripheral arterial disease. Baseline images were carried out after injection of 10.97 mCi of technetium-99m Tetrofosmin. Subsequently, exercise was carried out on treadmill under Dr. Veronica's supervision and is reported separately by him. A 29.9 mCi of technetium-99m Tetrofosmin were injected at peak exercise. The heart rate is not readable from the electrocardiogram. The supervising nurse reported that the heart rate was 149 beats per minute at the time of injection, based on oximetry. Review of images at rest and following stress does not indicate any distinct perfusion defects consistent with significant myocardial ischemia or infarction. Gated images show normal global left ventricular systolic function with normal regional wall motion. Left ventricular ejection fraction calculated to be 64%. CONCLUSIONS: 1. No evidence of significant myocardial ischemia or infarction on this study. 2. Normal regional wall motion and left ventricular ejection fraction 64%. 3. It is not clear from the ECG tracings if the patient had achieved target heart rate at the time of injection or not. Job ID: [id number] DocumentID: [id number] Dictated Date: 06/22/2021 13:06:54 Horticultural Nursery Assistant Date: 06/22/2021 13:21:23 Dictated By: JEFFERY RUTHERFORD MD, MA, FACP, FACC,
== END ==
LOC: CARD 07:00
PROVIDERS: ATTEND Internal Medicine
DX: Z13.6 Encounter for screening for cardiovascular disorders (principal); I73.9 Peripheral vascular disease, unspecified
CPT/HCPCS: 78452; 93017; A9502

== ENCOUNTER 2021-11-19 08:44 | Emergency (ER) | payer MEDICARE ==
[~2021-11-19] VITALS: Ht 160 cm; Wt 63.0 kg
[~2021-11-19 08:44] MED LIST changes: -CATHETER FLUSH 10 ML SYR IV PRN
[2021-11-19] MEDS ORDERED: TETANUS,DIPTH,PERTUSS P/F (BOOSTRIX) 0.5 ML VIAL IM ONE (09:15)
[2021-11-19] MEDS ORDERED: LIDOCAINE 1% INJ 20 ML VIAL INJ ONE (09:15)
--- NOTE | 2021-11-19 09:15 | ED Upper Extremity ---
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 She is been holding pressure with a paper towel. Is been more than 5 years since she had a tetanus vaccination. No diabetes or immunocompromise. Allergies and Home Medications Allergies Coded Allergies: lithium (Unverified Allergy, Mild, 09/06/09) meperidine (Unverified Allergy, Mild, 09/06/09) morphine (Unverified Allergy, Mild, 09/06/09) nitrofurantoin (Unverified Allergy, Mild, 09/06/09) adhesive (Unverified Allergy, Unknown, HIVES, 04/21/15) Uncoded Allergies: HONEY BEES (Allergy, Unknown, 08/03/16) RIMERONE (Allergy, Unknown, 08/03/16) Patient Home Medication List Home Medication List Reviewed: Yes Amoxicillin/Potassium Clav (Augmentin 875-125 Tablet) 1 Each Tablet, 1 EACH PO BID Prescribed by: PERCY PHELAN on 04/20/19 1442 Cephalexin (Keflex) 500 Mg Capsule, 500 MG PO TID Prescribed by: FREDDY CALVO on 08/03/16 1515 Cholecalciferol (Vitamin D) 1,000 Unit Tablet, 1,000 UNIT PO BID, (Reported) Entered as Reported by: JASEN RECINOS on 01/25/11 1217 Clonazepam (Clonazepam) 1 Mg Tablet, 1 MG PO TID PRN, (Reported) Entered as Reported by: WANDA LOZANO on 09/06/09 1558 Esomeprazole Mag Trihydrate (Nexium) 40 Mg Capsule.dr, 40 MG PO DAILY, (Reported) Entered as Reported by: CRISTINA JOHNSON on 03/19/13 1122 Meclizine HCl (Meclizine HCl) 25 Mg Tablet, 25 MG PO TID PRN for DIZZINESS Prescribed by: PERCY PHELAN on 04/20/19 1442 Midodrine Hcl (Midodrine Hcl) 10 Mg Tablet, 10 MG PO TID, (Reported) Entered as Reported by: SONIA CHIU on 07/02/13 1039 Multivits W-Fe,Other Min/Lut (Centrum Silver Ultra Women Tab) 1 Each Tablet, 1 TAB PO DAILY, (Reported) Entered as Reported by: CRISTINA JOHNSON on 03/19/13 1122 Naproxen (Naproxen) 500 Mg Tablet, 500 MG PO BID Prescribed by: SEKOU SUAZO on 08/02/16 0944 Oxybutynin Chloride (Oxybutynin Chloride Er) 15 Mg Tab.osm.24, 15 MG PO DAILY, (Reported) Entered as Reported by: SONIA CHUI on 04/21/15 1331 Potassium Chloride (Klor-Con M20) 20 Meq Tab.prt.sr, 20 MEQ PO DAILY, (Reported) Entered as Reported by: CRISTINA JOHNSON on 03/19/13 1122 Quetiapine Fumarate (Seroquel Xr) 300 Mg Tab.sr.24h, 300 MG PO HS, (Reported) Entered as Reported by: SONIA CHIU on 04/21/15 1331 Topiramate (Topiramate) 100 Mg Tablet, 100 MG PO BID, (Reported) Entered as Reported by: CRISTINA JOHNSON on 03/19/13 1122 Trazodone Hcl (Desyrel) 100 Mg Tablet, 200 MG PO HS, (Reported) Entered as Reported by: CRISTINA JOHNSON on 03/19/13 1122 Trimethoprim (Trimethoprim) 100 Mg Tablet, 100 MG PO HS, (Reported) Entered as Reported by: SONIA CHIU on 04/21/15 1331 Review of Systems Constitutional: No chills, No fever, No malaise EENTM: No hearing loss, No ear pain Respiratory: No cough, No short of breath Cardiovascular: No edema, No palpitations Gastrointestinal: No abdominal pain, No constipation, No diarrhea, No nausea Genitourinary: No discharge, No dysuria : No Control/STD Prophylaxis: None Musculoskeletal: see HPI; No back pain, No joint pain Skin: see HPI All Other Systems Reviewed Negative Unless Noted: Yes Past Yoffjce-Qfskaz-Xyjyzm Hx Patient Social History Tobacco Use?: No Use of E-Cig and/or Vaping dev: No Immunizations Up To Date Tetanus Booster (TDap): Less than 5yrs Seasonal Allergies Seasonal Allergies: No Past Medical History Surgeries: Yes Bladder Surgery, Breast, Gallbladder, Lumpectomy, Orthopedic Respiratory: No Cardiac: Yes (LOW B/P, SHARPE SYNDROME) Hypotension Neurological: No Female Reproductive Disorders: Ovarian Cyst Kidney Infection, Bladder Infection, UTI-Chronic Gastrointestinal: Yes (SPASTIC BOWEL) Gastroesophageal Reflux, Irritable Bowel Musculoskeletal: Yes (FX OF BILAT HIPS/PELVIS/BACK) Chronic Back Pain, Fractures Endocrine: No Cancer: No Psychosocial: Yes (PAINIC ATTACKS) Anxiety, Bipolar, Personality Disorder, Depression Integumentary: No Blood Disorders: No Adverse Reaction/Blood Tranf: No Physical Exam Vital Signs Vital Signs - First Documented 11/19/21 09:11 Temp 36.4 Pulse 76 Resp 18 B/P (MAP) 111/60 (77) Pulse Ox 98 O2 Delivery Room Air Capillary Refill : Height, Weight, BMI Height: 5'1.00" Weight: 130lbs. oz. 58.115282ci; 26.45 BMI Method:Stated General Appearance: WD/WN, mild distress HEENT: PERRL/EOMI, pharynx normal Neck: full range of motion, supple, normal inspection Cardiovascular: normal peripheral pulses, regular rate, rhythm Respiratory: no respiratory distress, no accessory muscle use Hand: laceration (Longitudinal 2 and half centimeter laceration through the distal phalanx of the fifth digit left hand. Just lateral to the nail.) Neurologic/Tendon: normal sensation, normal motor functions, normal tendon functions, responds to pain, no evidence tendon injury Neurologic/Psychiatric: no motor/sensory deficits, alert, normal mood/affect Procedures/Interventions Wound Location: Upper Extremities Other Wound Location Left hand fifth digit Wound Length (cm): 2.5 Wound's Depth, Shape: linear, sub Q Wound Explored: no foreign body removed Irrigated w/ Saline (ccs): 100 Betadine Prep?: Yes (Chlorhexidine) Anesthesia: 1% Lidocaine Volume Anesthetic (ccs): 3 Wound Debrided: minimal Suture: Prolene Suture Size: 5-0 Number of Sutures: 5 Layer Closure?: 1 Number Deep Layer Sutures: 0 Sterile Dressing Applied?: Yes Progress Cleaned the wound and performed a digital block of the fifth digit. Then put another cc of lidocaine 1% into the wound. Patient was ascertained to be well anesthetized so we closed the wound and reapproximated the skin edges. 5 simple interrupted sutures. Progress/Results/Core Measures Results/Orders My Orders Orders - SHADI JOHNSON Dipht,Pertuss(Acell),Tet Adult (Boostrix (11/19/21 09:15) Lidocaine 1% Inj 20 Ml (Xylocaine 1% Inj (11/19/21 09:15) Medications Given in ED Current Medications Medications Dose Ordered Sig/Saida Route Start Time Stop Time Status Last Admin Dose Admin Diphtheria/ Tetanus/Acell Pertussis 0.5 ml ONCE ONCE IM 11/19/21 09:15 11/19/21 09:16 DC 11/19/21 09:23 0.5 ML Lidocaine HCl 20 ml ONCE ONCE INJ 11/19/21 09:15 11/19/21 09:16 DC 11/19/21 09:21 20 ML Vital Signs/I&O 11/19/21 09:11 Temp 36.4 Pulse 76 Resp 18 B/P (MAP) 111/60 (77) Pulse Ox 98 O2 Delivery Room Air Progress Progress Note : Time: 09:47 Progress Note Tetanus vaccine given. We will put her on some prophylactic antibiotics. Departure Impression Primary Impression: Laceration of finger of left hand without damage to nail Qualified Codes: S61.217A - Laceration without foreign body of left little finger without damage to nail, initial encounter Disposition: 01 HOME, SELF-CARE Condition: Stable Departure-Patient Inst. Decision time for Depature: 09:45 Referrals: STANISLAV VILLEGAS DO (PCP/Family) Primary Care Physician Patient Instructions: Laceration Repair With Stitches (DC) Add. Discharge Instructions: Keep the wound clean with regular soap and water only. Do not use hydrogen peroxide, alcohol, chlorhexidine or iodine as this will delay wound healing. Change the dressing daily or more frequently if it becomes soiled. Vaseline or triple antibiotic ointment followed by gauze padding. Return to the ER and 10 to 14 days to have the sutures removed no additional charge. Return to ER sooner if you are having redness going up your hand, fever, yellowish discharge or other worrisome findings. Tylenol 1000 mg every 8 hours necessary for pain. Ibuprofen 800 mg every 8 hours necessary for pain. Keflex 1 capsule 3 times a day to prevent infection for the next 3 to 5 days. Do not submerge your hand under water until the sutures come out. Showers are okay. All discharge instructions reviewed with patient and/or family. Voiced understanding. Scripts Cephalexin (Cephalexin) 500 Mg Tablet 500 MG PO TID for 5 Days, #15 TAB 0 Refills Prov: SHADI JOHNSON 11/19/21 Work/School Note: Work Release Form Date Seen in the Emergency Department: Nov 19, 2021 Return to Work: Nov 19, 2021 Restrictions: Need Release from Doctor Other Restrictions Listed Below: Keep wound clean, dry and dressed until stitches come out. SHADI JOHNSON Nov 19, 2021 09:15
[2021-11-19] MEDS ORDERED: CEPH500T PO (09:49)
[2021-11-19 10:00] VITALS: BP 106/71
== END 2021-11-19 10:01 | disposition home or self-care (01) ==
LOC: EDUNIT# 08:44 → ER 08:46
DX: S61.217A Laceration without foreign body of left little finger without damage to nail, initial encounter (principal); I10 Essential (primary) hypertension; K21.9 Gastro-esophageal reflux disease without esophagitis; F41.9 Anxiety disorder, unspecified; F31.9 Bipolar disorder, unspecified; Z23 Encounter for immunization; Z79.899 Other long term (current) drug therapy; W26.8XXA Contact with other sharp object(s), not elsewhere classified, initial encounter
CPT/HCPCS: 12001; 64450; 90715

== ENCOUNTER → 2022-06-07 | Outpatient (CLI) | payer MEDICARE ==
[~2022-06-07] MED LIST changes: +CEPH500T PO
--- NOTE | 2022-06-07 16:15 | Diagnostic Imaging Report ---
INDICATION: Routine screening. Comparison is made with prior mammograms from 02/23/2021 and 12/31/2019. 2-D and 3-D bilateral screening mammography was performed with CAD. Both breast are heterogeneously dense, limiting the sensitivity of mammography. Postbiopsy changes in the right breast with marker clip is again noted. Calcifications near the biopsy site appear to be stable. No discrete mass is detected. Axillae are unremarkable. IMPRESSION: No mammographic features suspicious for malignancy are identified. ACR BI-RADS Category 2: Benign findings. Result letter will be mailed to the patient. Note: At least 10% of breast cancer is not imaged by mammography. BI-RADS Category 2 Dictated by: Dictated on workstation # [id number]
== END ==
LOC: RAD 15:30
PROVIDERS: ATTEND Nurse Practitioner Women's Health
DX: Z12.31 Encounter for screening mammogram for malignant neoplasm of breast (principal)
CPT/HCPCS: 77063; 77067

== ENCOUNTER → 2022-10-03 | Outpatient (CLI) | payer MEDICARE ==
--- NOTE | 2022-10-03 10:39 | Diagnostic Imaging Report ---
PROCEDURE: CT lumbar spine without contrast. TECHNIQUE: Multiple contiguous axial images were obtained through the lumbar spine without the use of intravenous contrast. Sagittal and coronal reformations were then performed. Auto Exposure Controls were utilized during the CT exam to meet ALARA standards for radiation dose reduction. INDICATION: Back pain. Curvature and alignment of the lumbar spine is normal. Vertebral body heights are well-maintained. No acute compression fracture is identified. There is some degenerative disc disease L5-S1 with mild disc space narrowing. There are some degenerative facet changes at L4-L5 level to lesser degree L3-L4. The paraspinous tissues are unremarkable. IMPRESSION: Lower lumbar spondylosis. No acute bony abnormality is detected. Dictated by: Dictated on workstation # [id number]
== END ==
LOC: RAD 07:45
PROVIDERS: ATTEND Internal Medicine
DX: M47.816 Spondylosis without myelopathy or radiculopathy, lumbar region (principal)
CPT/HCPCS: 72131